=== PATIENT | female | born 1930 | race Caucasian/White ===

== ENCOUNTER 2017-03-26 16:48 | Inpatient (IN) | payer OTHER ==
--- NOTE | 2017-03-26 17:33 | PDOC ---
History of Present Illness <Allen Lacey - Last Filed: 03/26/17 21:53> - General History Source: Patient, Family, Old Records Exam Limitations: No Limitations - History of Present Illness Initial Comments: 03/26/17 17:51 The patient is a 86 year old female and presenting with her family, with a significant past medical history of lung CA (stage 4)(2 years of treatment, now only taking chemo pills) on home O2, dementia and HLD, who presents to the emergency department with shortness of breath, left back pain, rash and chills. The patient notes that she has a rash on her left mid back and under her left breast, as well as a blister. He patient is not a former smoker but her was a former smoker. The patient denies chest pain, headache and dizziness. Denies fever, nausea, vomit, diarrhea and constipation. Denies dysuria, frequency, urgency and hematuria. Allergies: Bacitracin, penicillin and tape Past surgical history: Heart Valve replacement Social history: No alcohol, tobacco or drug use reported PMD - Dr. Binh Rico ([place]) Alectinid (Alecensa) <Cesar Carlson - Last Filed: 03/26/17 23:09> - General Chief Complaint: Rash Stated Complaint: PCP SENT/PNEUMONIA Time Seen by Provider: 03/26/17 17:32 Past History - Past Medical History Anemia: No Asthma: No Cancer: Yes (STAGE 2 LUNG CA) Cardiac Disorders: Yes (OPEN HEART SURGERY VALVE REPLACEMENT [facility]) CVA: No COPD: No CHF: No Dementia: Yes Diabetes: No GI Disorders: No Disorders: No HTN: No Hypercholesterolemia: Yes Liver Disease: No Seizures: No Thyroid Disease: No Other medical history: INTERMMITENT 2L VIA NC O2AT HOME - Surgical History Cardiac Surgery: Yes (HEART VALVE REPLACEMENT) - Psycho/Social/Smoking Cessation Hx Anxiety: No Suicidal Ideation: No Smoking History: Never smoked Hx Alcohol Use: No Drug/Substance Use Hx: No Substance Use Type: None Hx Substance Use Treatment: No <Allen Lacey - Last Filed: 03/26/17 21:53> <Cesar Carlson - Last Filed: 03/26/17 23:09> - Past Medical History Allergies/Adverse Reactions: Allergies Allergy/AdvReac Type Severity Reaction Status Date / Time bacitracin Allergy Rash Verified 03/26/17 17:01 Penicillins Allergy Verified 03/26/17 17:01 TAPE Allergy Uncoded 03/26/17 17:01 Home Medications: Ambulatory Orders Alectinib HCl [Alecensa] 150 mg PO BID 03/26/17 Apixaban [Eliquis -] 2.5 mg PO BID 03/26/17 Carvedilol [Coreg -] 12.5 mg PO DAILY 03/26/17 Furosemide [Lasix -] 40 mg PO DAILY 03/26/17 Montelukast Na [Singulair -] 10 mg PO HS 03/26/17 Potassium Chloride [K-Tab ER] 20 meq PO DAILY 03/26/17 Quetiapine Fumarate [Seroquel] 100 mg PO HS 03/26/17 Review of Systems - Review of Systems Able to Perform ROS?: Yes Comments:: 03/26/17 17:51 GENERAL/CONSTITUTIONAL: +Chills. No fever. No weakness. HEAD, EYES, EARS, NOSE AND THROAT: No change in vision. No ear pain or discharge. No sore throat. CARDIOVASCULAR: +Shortness of breath. No chest pain RESPIRATORY: No cough, wheezing, or hemoptysis. GASTROINTESTINAL: No nausea, vomiting, diarrhea or constipation. GENITOURINARY: No dysuria, frequency, or change in urination. MUSCULOSKELETAL: +Left back pain. No joint or muscle swelling or pain. No neck pain. SKIN: +Left mid back rash and left under the breast rash. NEUROLOGIC: No headache, vertigo, loss of consciousness, or change in strength/ sensation. ENDOCRINE: No increased thirst. No abnormal weight change HEMATOLOGIC/LYMPHATIC: No anemia, easy bleeding, or history of blood clots. ALLERGIC/IMMUNOLOGIC: No hives or skin allergy. <Cesar Carlson - Last Filed: 03/26/17 23:09> *Physical Exam - Vital Signs Last Vital Signs Temp Pulse Resp BP Pulse Ox 97.8 F 78 18 120/67 95 03/26/17 16:53 03/26/17 16:53 03/26/17 16:53 03/26/17 16:53 03/26/17 16:53 <Allen Lacey - Last Filed: 03/26/17 21:53> - Vital Signs Last Vital Signs Temp Pulse Resp BP Pulse Ox 97.8 F 78 18 120/67 95 03/26/17 16:53 03/26/17 16:53 03/26/17 16:53 03/26/17 16:53 03/26/17 16:53 - Physical Exam Comments: 03/26/17 17:55 GENERAL: Awake, alert, and fully oriented, in no acute distress HEAD: No signs of trauma, normocephalic, atraumatic EYES: PERRLA, EOMI, sclera anicteric, conjunctiva clear ENT: Auricles normal inspection, hearing grossly normal, nares patent, oropharynx clear without exudates. Moist mucosa NECK: Normal ROM, supple, no lymphadenopathy, JVD, or masses LUNGS: No distress, speaks full sentences, clear to auscultation bilaterally HEART: Regular rate and rhythm, normal S1 and S2, no murmurs, rubs or gallops, peripheral pulses normal and equal bilaterally. ABDOMEN: Soft, nontender, normoactive bowel sounds. No guarding, no rebound. No masses EXTREMITIES: Normal inspection, Normal range of motion, no edema. No clubbing or cyanosis. NEUROLOGICAL: Cranial nerves II through XII grossly intact. Normal speech, normal gait, no focal sensorimotor deficits SKIN: +Shingles rash in the T8-10 dermatone, rolling underneath her left breast with a blister. Warm, Dry, normal turgor. <Cesar Carlson - Last Filed: 03/26/17 23:09> ED Treatment Course - LABORATORY CBC & Chemistry Diagram: 03/26/17 18:45 03/26/17 18:45 <Allen Lacey - Last Filed: 03/26/17 21:53> - LABORATORY CBC & Chemistry Diagram: 03/26/17 18:45 03/26/17 18:45 <Cesar Carlson - Last Filed: 03/26/17 23:09> Medical Decision Making - Medical Decision Making 03/26/17 22:00 Dr. Binh Garcia was called regarding the patient at 9:46pm. Dr. Florencio mauro. Dr. Matias was consulted regarding the patient at 9:50pm [phone] Dr. Justen Garcia was called regarding the patient at 10:06pm Dr. Carter mauro. Dr. Machado was consulted regarding the patient at 10:50pm [phone] <Cesar Carlson - Last Filed: 03/26/17 23:09> *DC/Admit/Observation/Transfer - Discharge Dispostion Admit: Yes - Attestations Physician Attestion: 03/26/17 17:32 I, Dr. Allen Lacey, attest that this document has been prepared under my direction and personally reviewed by me in its entirety. I further attest, that it accurately reflects all work, treatment, procedures and medical decision -making performed by me. <Allen Lacey - Last Filed: 03/26/17 21:53> - Attestations Scribe Attestion: 03/26/17 17:51 Documentation prepared by Cesar Carlson, acting as medical clinic manager for Allen Lacey MD <Cesar Carlson - Last Filed: 03/26/17 23:09> Diagnosis at time of Disposition: Pneumonitis Shingles Qualifiers: Herpes zoster complications: without complications Qualified Code(s): B02.9 - Zoster without complications Lung cancer Qualifiers: Laterality: unspecified laterality Lung location: unspecified part of lung Qualified Code(s): C34.90 - Malignant neoplasm of unspecified part of unspecified bronchus or lung - Discharge Dispostion Condition at time of disposition: Improved - Referrals
[2017-03-26 19:03] LABS: EOSINOPHIL 1.8 % (0-4.5); MCH 30.4 pg (25.7-33.7); MCHC 33.2 g/dl (32.0-36.0); MEAN CELL VOLUME 91.4 fl (80-96); MEAN PLT VOLUME 8.7 fl (7.5-11.1); NEUTROPHILS 60.4 % (42.8-82.8); PLATELET COUNT 148 K/MM3 (134-434); RDW 16.7 % (11.6-15.6)
[2017-03-26 19:16] LABS: INR 1.3 (0.82-1.09); PROTHROMBIN TIME (PATIENT) 14.4 SEC (9.98-11.88)
[2017-03-26 19:22] LABS: ALBUMIN 3.6 g/dl (3.4-5.0); BILIRUBIN,TOTAL 0.7 mg/dL (0.2-1.0); CALCIUM 8.9 mg/dL (8.5-10.1); COCKROFT - GAULT 34.204; CREATININE 1.3 mg/dL (0.55-1.02); TOT PROT 8.7 g/dl (6.4-8.2)
[2017-03-26] MEDS ORDERED: ACYCLOVIR INJECTION 700 MG in DEXTROSE 5%-WATER - 100 ML IVPB ONE (19:46)
[2017-03-26] MEDS ORDERED: ACETAMINOPHEN 325 MG TABLET (FP) PO PRN (21:53)
[2017-03-26] MEDS ORDERED: LEVOFLOXACIN 500 MG IVPB 100 ML IVPB ONE ×2 (21:58→22:10)
[2017-03-26] MEDS ORDERED: ALECTINIB HCL 150 MG PO SCH (22:00)
[2017-03-26] MEDS ORDERED: MONTELUKAST NA 10 MG TABLET ONE (22:42)
[2017-03-26] MEDS ORDERED: QUEtiapine FUMARATE 100 MG TABLET (FP) ONE (22:42)
[2017-03-26] MEDS: QUEtiapine FUMARATE 100 MG TABLET (FP) PO SCH (22:43)
[2017-03-26] MEDS: MONTELUKAST NA 10 MG TABLET PO SCH (22:43)
[2017-03-26] MEDS: valACYclovir HCL 1000 MG TABLET PO SCH (23:15)
[2017-03-26] MEDS: APIXABAN 2.5 MG TABLET PO SCH (23:15)
[2017-03-27] MEDS: traMADol HCL 50 MG TABLET PO PRN ×2 (06:47→13:37)
[2017-03-27 08:25] VITALS: BMI 28.9
[2017-03-27] MEDS: POTASSIUM CHLORIDE TABS 20 MEQ TABLET.ER (FP) PO SCH (09:50)
[2017-03-27] MEDS: CARVEDILOL 12.5 MG TABLET (FP) PO SCH (09:50)
[2017-03-27] MEDS: APIXABAN 2.5 MG TABLET PO SCH ×2 (09:50→21:42)
[2017-03-27] MEDS: valACYclovir HCL 1000 MG TABLET PO SCH (09:51)
[2017-03-27] MEDS: LEVOFLOXACIN 250 MG IVPB 50 ML IVPB SCH (09:51)
[2017-03-27] MEDS: FUROSEMIDE 40 MG TABLET (FP) PO SCH (09:51)
--- NOTE | 2017-03-27 10:26 | HP ---
Admitting History and Physical - Primary Care Physician PCP: Binh Garcia - Admission Chief Complaint: pain in back , fever History of Present Illness: ER HISTORY - History of Present Illness Initial Comments: 03/26/17 17:51 The patient is a 86 year old female and presenting with her family, with a significant past medical history of lung CA (stage 4)(2 years of treatment, now only taking chemo pills) on home O2, dementia and HLD, who presents to the emergency department with shortness of breath, left back pain, rash and chills. The patient notes that she has a rash on her left mid back and under her left breast, as well as a blister. He patient is not a former smoker but her was a former smoker. The patient denies chest pain, headache and dizziness. Denies fever, nausea, vomit, diarrhea and constipation. Denies dysuria, frequency, urgency and hematuria. Allergies: Bacitracin, penicillin and tape Past surgical history: Heart Valve replacement Social history: No alcohol, tobacco or drug use reported PMD - Dr. Binh Garcia oncologist Dr. Rico ([place]) chemo-- Alectinib (Alecensa) Pt seen by me in the floor Her daughter at bedside Pt is baseline dementia. She had been having cough, weakness , chills and back pain for about 3 weeks-- found to have rash on the back . She is currently on oral immunotherapy for stage 4 Lung ca. Daughter thought that the pain was from her left lung CA. Febrile today History Source: Family Member Limitations to Obtaining History: Dementia - Past Medical History [employer]ATION [employer]: Yes: Alzheimer's Cardiovascular: Yes: Aortic Stenosis (s/p AVR- bioprosthetic valve- not on Coumadin - was dc by on Dec 2104), HTN, Hyperlipdemia - Past Surgical History Past Surgical History: Yes: Valve Replacement - Smoking History Smoking history: Never smoked - Alcohol/Substance Use Hx Alcohol Use: No - Social History ADL: Family Assistance History of Recent Travel: No Home Medications - Allergies Allergies/Adverse Reactions: Allergies Allergy/AdvReac Type Severity Reaction Status Date / Time bacitracin Allergy Rash Verified 03/26/17 17:01 Penicillins Allergy Verified 03/26/17 17:01 TAPE Allergy Uncoded 03/26/17 17:01 - Home Medications Home Medications: Ambulatory Orders Alectinib HCl [Alecensa] 150 mg PO BID 03/26/17 Apixaban [Eliquis -] 2.5 mg PO BID 03/26/17 Carvedilol [Coreg -] 12.5 mg PO DAILY 03/26/17 Furosemide [Lasix -] 40 mg PO DAILY 03/26/17 Montelukast Na [Singulair -] 10 mg PO HS 03/26/17 Potassium Chloride [K-Tab ER] 20 meq PO DAILY 03/26/17 Quetiapine Fumarate [Seroquel] 100 mg PO HS 03/26/17 Family Disease History - Family Disease History Family Disease History: Other: Daughter (pe) Review of Systems - Review of Systems Constitutional: reports: Chills, Fever, Weakness Respiratory: reports: Cough, SOB Musculoskeletal: reports: Back Pain Integumentary: reports: Rash Physical Examination Vital Signs: Vital Signs Temperature 97.3 F L 03/27/17 10:00 Pulse Rate 87 03/27/17 10:00 Respiratory Rate 22 03/27/17 10:00 Blood Pressure 156/77 03/27/17 10:00 O2 Sat by Pulse Oximetry (%) 94 L 03/27/17 05:02 Constitutional: Yes: No Distress, Anxious Cardiovascular: Yes: Regular Rate and Rhythm, Murmur, Other (scar sternum) Respiratory: Yes: Diminished Gastrointestinal: Yes: Normal Bowel Sounds, Soft, Abdomen, Obese. No: Distention, Tenderness Extremities: Yes: Erythema (both feet), Other (b/l feet wounds- no discharge) Edema: No Integumentary: Yes: Rash (papular erythematous lesions on left mid back) Neurological: Yes: Alert, Other (confused) Labs: Laboratory Results - last 24 hr 03/26/17 03/26/17 03/26/17 18:45 18:45 18:45 WBC 6.0 RBC 3.81 Hgb 11.6 D Hct 34.8 D MCV 91.4 MCHC 33.2 RDW 16.7 H D Plt Count 148 D MPV 8.7 Neutrophils % 60.4 Lymphocytes % 21.6 Monocytes % 15.2 H Eosinophils % 1.8 Basophils % 1.0 INR 1.30 H D Sodium 139 Potassium 4.2 Chloride 99 Carbon Dioxide 28 Anion Gap 12 BUN 32 H Creatinine 1.3 H Creat Clearance w eGFR 38.93 Random Glucose 116 H Calcium 8.9 Total Bilirubin 0.7 D AST 30 ALT 20 D Alkaline Phosphatase 152 H D Total Protein 8.7 H D Albumin 3.6 D Imaging - Results Chest X-ray: Image Reviewed (mass in left lung) EKG: Image Reviewed Problem List - Problems (1) Lung cancer Code(s): C34.90 - MALIGNANT NEOPLASM OF UNSP PART OF UNSP BRONCHUS OR LUNG Qualifiers: Laterality: unspecified laterality Lung location: unspecified part of lung Qualified Code(s): C34.90 - Malignant neoplasm of unspecified part of unspecified bronchus or lung (2) Shingles Code(s): B02.9 - ZOSTER WITHOUT COMPLICATIONS Qualifiers: Herpes zoster complications: without complications Qualified Code(s): B02.9 - Zoster without complications (3) Acute renal insufficiency Code(s): N28.9 - DISORDER OF KIDNEY AND URETER, UNSPECIFIED (4) Dementia Code(s): F03.90 - UNSPECIFIED DEMENTIA WITHOUT BEHAVIORAL DISTURBANCE Qualifiers: Dementia type: Alzheimer's disease (5) HTN (hypertension) Code(s): I10 - ESSENTIAL (PRIMARY) HYPERTENSION Qualifiers: Hypertension type: essential hypertension Qualified Code(s): I10 - Essential (primary) hypertension (6) Cellulitis Code(s): L03.90 - CELLULITIS, UNSPECIFIED Qualifiers: Site of cellulitis: extremity Site of cellulitis of extremity: lower extremity Laterality: right Qualified Code(s): L03.115 - Cellulitis of right lower limb Assessment/Plan PLAN Contact isolation pain control with tramadol blood cultures pending check UA and cultures On PO valtrex and IV Levaquin wound care with Santyl-- will consult with Dr saxena Check labs today CXR does not show to have infiltrates OOB DVT prophylaxis-- Eliquis Time spent -- 35 min for evaluation, examination ,plan, talking to family, staff and documentation
--- NOTE | 2017-03-27 13:21 | PN ---
Progress Note (short form) - Note Progress Note: ID Consult dictated Herpes Zoster L T5 dermatome Fever ? source S/P AVR Hx MRSA PCN allergy PO Valtrex Blood c/s Empiric levaquin + stat dose vancomycin
[2017-03-27 13:38] LABS: ALBUMIN 3.2 g/dl (3.4-5.0); BILIRUBIN,TOTAL 0.7 mg/dL (0.2-1.0); CALCIUM 8.9 mg/dL (8.5-10.1); COCKROFT - GAULT 45.1265; CREATININE 1.1 mg/dL (0.55-1.02); TOT PROT 7.7 g/dl (6.4-8.2)
[2017-03-27 13:39] LABS: BASOPHIL 0.9 % (0-2.0); EOSINOPHIL 2.5 % (0-4.5); MCH 30.6 pg (25.7-33.7); MCHC 33.7 g/dl (32.0-36.0); MEAN CELL VOLUME 90.8 fl (80-96); MEAN PLT VOLUME 8.7 fl (7.5-11.1); NEUTROPHILS 52.1 % (42.8-82.8); PLATELET COUNT 152 K/MM3 (134-434); RDW 16.2 % (11.6-15.6); WHITE BLOOD COUNT 5.3 K/mm3 (4.0-10.0)
[2017-03-27] MEDS: COLLAGENASE CLOSTRIDIUM HIST. 30 GRAMS TUBE TP SCH (13:39)
[2017-03-27 14:25] LABS: URINE APPEARANCE SLCLOUDY; URINE BILIRUBIN NEGATIVE (NEGATIVE); URINE COLOR LTYELLOW; URINE GLUCOSE (UA) NEGATIVE (NEGATIVE); URINE KETONE NEGATIVE (NEGATIVE); URINE NITRITE NEGATIVE (NEGATIVE); URINE PROTEIN NEGATIVE (NEGATIVE); URINE UROBILINOGEN NEGATIVE E.U./dl (0.2-1.0)
[2017-03-27 14:29] LABS: URINE BLOOD 2+ (NEGATIVE); URINE LEUK ESTERASE 3+ (NEGATIVE)
[2017-03-27 14:37] LABS: URINE BACTERIA MANY /hpf (NONE SEEN); URINE MUCUS FEW; URINE RBC 4 /hpf (0-3); URINE WBC 79 /hpf (3-5)
[2017-03-27] MEDS ORDERED: VANCOMYCIN 1 GRAM (PRE-DOCKED) 250 ML IVPB ONE (14:45)
--- NOTE | 2017-03-27 15:53 | PN ---
Progress Note (short form) - Note Progress Note: Vascular Surgery- Dr. Berg Wound care consult, bilateral foot ulcers 86 yo F with PMH of stage 4 lung CA (on oral chemotherapy and home O2), dementia , aortic stenosis (s/p AVR), HTN, and HLD, who presented to the ED with SOB, left back pain, rash and chills, noted to have shingles. The patient states she sees Dr. Berg in the wound care clinic for her foot ulcers. She has had these ulcers for a long time, but is unsure how long. She states she saw Dr. Berg recently and the ulcers have improved. She is having minimal pain in her feet. She denies fever, chills, nausea, vomiting. Past surgical history: Heart Valve replacement Social history: No alcohol, tobacco or drug use Allergies: Bacitracin, penicillin and tape Home Medications Medication Instructions Recorded Alectinib HCl [Alecensa] 150 mg PO BID 03/26/17 Apixaban [Eliquis -] 2.5 mg PO BID 03/26/17 Carvedilol [Coreg -] 12.5 mg PO DAILY 03/26/17 Furosemide [Lasix -] 40 mg PO DAILY 03/26/17 Montelukast Na [Singulair -] 10 mg PO HS 03/26/17 Potassium Chloride [K-Tab ER] 20 meq PO DAILY 03/26/17 Quetiapine Fumarate [Seroquel] 100 mg PO HS 03/26/17 Last Vital Signs Temp Pulse Resp BP Pulse Ox 97.4 F L 68 18 110/68 95 03/27/17 15:45 03/27/17 15:45 03/27/17 15:45 03/27/17 15:45 03/27/17 09:00 CBC, BMP 03/27/17 12:40 03/27/17 12:40 Exam: Gen: NAD, baseline dementia LE: bilat. superficial foot ulcers with area on lateral right foot and areas on medial and lateral aspects of left foot, with some surrounding erythema (R>L), no odor or drainage, appear to be healing, feet warm and well-perfused, + pulses A/P Bilateral foot ulcers Continue Santyl dressing changes daily Continue abx per ID Discussed with Dr. Berg and agrees
--- NOTE | 2017-03-27 16:07 | CONS ---
DATE OF CONSULTATION: DATE OF DICTATION: 03/27/2017 INFECTIOUS DISEASE CONSULTATIONS HISTORY OF PRESENT ILLNESS: An 86-year-old female evaluated for fever and rash. The patient has a history of stage 4 lung cancer. She was admitted to the hospital with a 2-day history of worsening left sided chest and back pain associated with cough, dyspnea, generalized weakness and chills. She subsequently developed a rash involving her left back and chest area. She was diagnosed with herpes zoster. Chest x-ray shows a right mid lung consolidation/mass. She has been receiving immunotherapy for stage 4 lung cancer. She reports occasional cough productive of yellowish sputum. She denies any hemoptysis. No complaints of recent high grade fever or shaking chills. Her course has been complicated by temperature to 101.3. The patient has a history of a prosthetic aortic valve as well as chronic ankle ulcers, for which she is followed in the wound care center. No reports of purulent drainage from the ulcers, no vomiting or diarrhea, no dysuria or hematuria. PAST MEDICAL HISTORY: Positive for stage 4 lung cancer, mild dementia, hyperlipidemia, hypertension, history of chronic lower extremity ulcers with MRSA, wound culture. PAST SURGICAL HISTORY: Status post aortic valve replacement 1995. ALLERGIES: PENICILLIN (rash). MEDICATION: Eliquis, Coreg, Lasix, Singulair, Seroquel, alectinib. SOCIAL HISTORY: Nonsmoker. Nondrinker. Lives at home with family. Has 16 children. No recent hospital admissions. SYSTEMS REVIEW: Neurologic: No loss of consciousness, seizure activity, or focal weakness. Cardiac: As per HPI. Respiratory: As per HPI. Gastrointestinal: Negative vomiting or diarrhea. Genitourinary: Negative for urinary tract infection. LABORATORY DATA: White count 6.0, hematocrit 34.8, platelet count 148, BUN 32, creatinine 1.3. Blood cultures pending. Urinalysis and urine culture pending. PHYSICAL EXAMINATION: General: She is awake and alert. Out of bed to chair. She is in no acute distress. Vital signs: Temperature 97.3, T-max 101.3, blood pressure 156/77, pulse 80 regular, respirations 20 per minute. HEENT: Sclerae anicteric. Cardiovascular: Heart sounds S1, S2. Positive murmur. Respiratory: Lungs scattered rhonchi. There is a maculopapular rash present along the left T5 dermatome extending from the back around to below the left breast area. Abdomen: Soft. Nontender. Extremities: 1+ edema. Chronic ulcerations present over the ankles bilaterally, no purulent drainage. IMPRESSION: 1. Herpes zoster, left T5 dermatome. 2. Fever unclear source. 3. Status post aortic valve replacement. 4. History of positive wound culture methicillin resistant Staphylococcus aureus. 5. PENICILLIN allergy. Continue oral Valtrex. Obtain cultures. Empiric antibiotic coverage pending cultures in this PENICILLIN allergic patient with Levaquin and stat dose vancomycin. Will follow. Thank you for the kind referral. SARAH MUELLER M.D. [id number]
[2017-03-27] MEDS: MONTELUKAST NA 10 MG TABLET PO SCH (21:43)
[2017-03-27] MEDS: valACYclovir HCL 500 MG TABLET (FP) PO SCH (21:43)
[2017-03-27] MEDS: QUEtiapine FUMARATE 100 MG TABLET (FP) PO SCH (21:43)
[2017-03-28 07:59] LABS: BASOPHIL 0.9 % (0-2.0); EOSINOPHIL 3.7 % (0-4.5); MCH 30.8 pg (25.7-33.7); MCHC 34.2 g/dl (32.0-36.0); MEAN CELL VOLUME 90.3 fl (80-96); MEAN PLT VOLUME 8.5 fl (7.5-11.1); NEUTROPHILS 50.1 % (42.8-82.8); PLATELET COUNT 149 K/MM3 (134-434); RDW 16.1 % (11.6-15.6); WHITE BLOOD COUNT 5.9 K/mm3 (4.0-10.0)
[2017-03-28 08:40] LABS: ALBUMIN 3.2 g/dl (3.4-5.0); BILIRUBIN,TOTAL 0.7 mg/dL (0.2-1.0); CALCIUM 9.4 mg/dL (8.5-10.1); COCKROFT - GAULT 45.1265; CREATININE 1.1 mg/dL (0.55-1.02); TOT PROT 7.5 g/dl (6.4-8.2)
[2017-03-28] MEDS ORDERED: PT OWN MED DRAWER 7, Y5N ONE ×2 (09:28→21:51)
[2017-03-28] MEDS: LEVOFLOXACIN 250 MG IVPB 50 ML IVPB SCH (09:43)
[2017-03-28] MEDS: FUROSEMIDE 40 MG TABLET (FP) PO SCH (09:44)
[2017-03-28] MEDS: APIXABAN 2.5 MG TABLET PO SCH ×2 (09:44→21:53)
[2017-03-28] MEDS: traMADol HCL 50 MG TABLET PO PRN (09:44)
[2017-03-28] MEDS: CARVEDILOL 12.5 MG TABLET (FP) PO SCH (09:44)
[2017-03-28] MEDS: POTASSIUM CHLORIDE TABS 20 MEQ TABLET.ER (FP) PO SCH (09:44)
[2017-03-28] MEDS: valACYclovir HCL 500 MG TABLET (FP) PO SCH ×2 (09:44→21:54)
[2017-03-28] MEDS: COLLAGENASE CLOSTRIDIUM HIST. 30 GRAMS TUBE TP SCH (09:45)
--- NOTE | 2017-03-28 10:36 | PN ---
Progress Note (short form) - Note Progress Note: SUBJECTIVE: Patient seen and examined. Chart reviewed. Comfortable. Pain under control. Afebrile today. OBJECTIVE: Vital Signs - 8 hr 03/28/17 03/28/17 06:00 08:55 Temperature 98.0 F 98.4 F Pulse Rate 75 76 Respiratory 20 20 Rate Blood Pressure 108/60 115/50 Intake & Output 03/27/17 03/28/17 03/28/17 23:59 07:59 15:59 Intake Total 400 Balance 400 Intake: Oral 400 Other: Voiding Method Toilet Toilet # Unmeasured Voids Void 1 Active Medications Acetaminophen (Tylenol -) 650 mg PO Q4H PRN PRN Reason: FEVER Last Admin: 03/27/17 06:46 Dose: 650 mg Apixaban (Eliquis -) 2.5 mg PO BID [facility] Last Admin: 03/28/17 09:44 Dose: 2.5 mg Carvedilol (Coreg -) 12.5 mg PO DAILY [facility] Last Admin: 03/28/17 09:44 Dose: 12.5 mg Collagenase (Santyl -) 1 applic TP DAILY [facility] Last Admin: 03/28/17 09:45 Dose: 1 applic Furosemide (Lasix -) 40 mg PO DAILY [facility] Last Admin: 03/28/17 09:44 Dose: 40 mg Levofloxacin (Levaquin 250 Mg Premixed Ivpb -) 50 mls @ 50 mls/hr IVPB DAILY [facility] Last Admin: 03/28/17 09:43 Dose: 50 mls/hr Montelukast Sodium (Singulair -) 10 mg PO HS [facility] Last Admin: 03/27/17 21:43 Dose: 10 mg Non-Formulary Medication (Alectinib Hcl [Alecensa]) 150 mg PO BID [facility] Potassium Chloride (K-Dur -) 20 meq PO DAILY [facility] Last Admin: 03/28/17 09:44 Dose: 20 meq Quetiapine Fumarate (Seroquel -) 100 mg PO HS [facility] Last Admin: 03/27/17 21:43 Dose: 100 mg Tramadol HCl (Ultram -) 50 mg PO Q6H PRN PRN Reason: BACK PAIN Last Admin: 03/28/17 09:44 Dose: 50 mg Valacyclovir HCl (Valtrex -) 1,000 mg PO BID [facility] Last Admin: 03/28/17 09:44 Dose: 1,000 mg CBC, BMP 03/28/17 06:15 03/28/17 06:15 Laboratory Results - last 24 hr 03/26/17 03/27/17 03/27/17 18:45 12:40 12:40 WBC 5.3 RBC 3.50 L Hgb 10.7 Hct 31.8 L MCV 90.8 MCHC 33.7 RDW 16.2 H Plt Count 152 MPV 8.7 Neutrophils % 52.1 Lymphocytes % 26.5 D Monocytes % 18.0 H Eosinophils % 2.5 Basophils % 0.9 Sodium 138 Potassium 4.3 Chloride 100 Carbon Dioxide 30 Anion Gap 8 BUN 23 H D Creatinine 1.1 H Creat Clearance w eGFR 47.21 Random Glucose 115 H Calcium 8.9 Total Bilirubin 0.7 AST 28 ALT 19 Alkaline Phosphatase 136 H Total Protein 7.7 Albumin 3.2 L Urine Color Urine Appearance Urine pH Ur Specific Cullen Urine Protein Urine Glucose (UA) Urine Ketones Urine Blood Urine Nitrite Urine Bilirubin Urine Urobilinogen Ur Leukocyte Esterase Urine RBC Urine WBC Ur Epithelial Cells Urine Bacteria Urine Mucus VZV IgG Antibody 1595 03/27/17 03/28/17 03/28/17 13:30 06:15 06:15 WBC 5.9 RBC 3.57 L Hgb 11.0 Hct 32.2 L MCV 90.3 MCHC 34.2 RDW 16.1 H Plt Count 149 MPV 8.5 Neutrophils % 50.1 Lymphocytes % 26.5 Monocytes % 18.8 H Eosinophils % 3.7 Basophils % 0.9 Sodium 137 Potassium 3.9 Chloride 99 Carbon Dioxide 29 Anion Gap 9 BUN 22 H Creatinine 1.1 H Creat Clearance w eGFR 47.21 Random Glucose 88 D Calcium 9.4 Total Bilirubin 0.7 AST 27 ALT 20 Alkaline Phosphatase 133 H Total Protein 7.5 Albumin 3.2 L Urine Color Ltyellow Urine Appearance Slcloudy Urine pH 7.0 D Ur Specific Cullen 1.009 Urine Protein Negative Urine Glucose (UA) Negative Urine Ketones Negative Urine Blood 2+ H Urine Nitrite Negative Urine Bilirubin Negative Urine Urobilinogen Negative Ur Leukocyte Esterase 3+ H Urine RBC 4 Urine WBC 79 Ur Epithelial Cells Rare Urine Bacteria Many Urine Mucus Few VZV IgG Antibody Microbiology 03/26/17 18:45 Blood Culture - Preliminary Blood - Peripheral Venous NO GROWTH OBTAINED AFTER 24 HOURS, INCUBATION TO CONTINUE FOR 4 DAYS. 03/26/17 18:45 Blood Culture - Preliminary Blood - Peripheral Venous NO GROWTH OBTAINED AFTER 24 HOURS, INCUBATION TO CONTINUE FOR 4 DAYS. PHYSICAL EXAMINATION: Constitutional: Yes: No Distress, Calm Cardiovascular: Yes: Regular Rate and Rhythm, Murmur, Other (scar sternum) Respiratory: Yes: Diminished at bases. Gastrointestinal: Yes: Normal Bowel Sounds, Soft, Abdomen, Obese. No: Distention, Tenderness Extremities: Yes: Erythema (both feet), Other (b/l feet wounds- no discharge) Edema: No Integumentary: Yes: Rash (papular erythematous lesions on left mid back) Neurological: Yes: Alert, Other (confused) Problem List - Problems (1) Lung cancer Code(s): C34.90 - MALIGNANT NEOPLASM OF UNSP PART OF UNSP BRONCHUS OR LUNG Qualifiers: Laterality: unspecified laterality Lung location: unspecified part of lung Qualified Code(s): C34.90 - Malignant neoplasm of unspecified part of unspecified bronchus or lung (2) Shingles Code(s): B02.9 - ZOSTER WITHOUT COMPLICATIONS Qualifiers: Herpes zoster complications: without complications Qualified Code(s): B02.9 - Zoster without complications (3) Acute renal insufficiency Code(s): N28.9 - DISORDER OF KIDNEY AND URETER, UNSPECIFIED (4) Dementia Code(s): F03.90 - UNSPECIFIED DEMENTIA WITHOUT BEHAVIORAL DISTURBANCE Qualifiers: Dementia type: Alzheimer's disease (5) HTN (hypertension) Code(s): I10 - ESSENTIAL (PRIMARY) HYPERTENSION Qualifiers: Hypertension type: essential hypertension Qualified Code(s): I10 - Essential (primary) hypertension (6) Cellulitis Code(s): L03.90 - CELLULITIS, UNSPECIFIED Qualifiers: Site of cellulitis: extremity Site of cellulitis of extremity: lower extremity Laterality: right Qualified Code(s): L03.115 - Cellulitis of right lower limb ASSESSMENT & PLAN: - Clinically stable. - Continue antibiotics. - Follow up cultures-- negative so far. - Contact precautions in place. - Daily out of bed to chair. - Will follow. Documentation prepared by Yuni Tellez, acting as a medical facilities section director for Viv Jurado MD. Problem List - Problems (1) H/O aortic valve replacement Code(s): Z95.2 - PRESENCE OF PROSTHETIC HEART VALVE
--- NOTE | 2017-03-28 13:37 | PN ---
Progress Note, Physician History of Present Illness: Reports less L flank pain Temps down Blood c/s no growth - Current Medication List Current Medications: Active Medications Acetaminophen (Tylenol -) 650 mg PO Q4H PRN PRN Reason: FEVER Last Admin: 03/27/17 06:46 Dose: 650 mg Apixaban (Eliquis -) 2.5 mg PO BID [facility] Last Admin: 03/28/17 09:44 Dose: 2.5 mg Carvedilol (Coreg -) 12.5 mg PO DAILY [facility] Last Admin: 03/28/17 09:44 Dose: 12.5 mg Collagenase (Santyl -) 1 applic TP DAILY [facility] Last Admin: 03/28/17 09:45 Dose: 1 applic Furosemide (Lasix -) 40 mg PO DAILY [facility] Last Admin: 03/28/17 09:44 Dose: 40 mg Levofloxacin (Levaquin 250 Mg Premixed Ivpb -) 50 mls @ 50 mls/hr IVPB DAILY [facility] Last Admin: 03/28/17 09:43 Dose: 50 mls/hr Montelukast Sodium (Singulair -) 10 mg PO HS [facility] Last Admin: 03/27/17 21:43 Dose: 10 mg Non-Formulary Medication (Alectinib Hcl [Alecensa]) 150 mg PO BID [facility] Potassium Chloride (K-Dur -) 20 meq PO DAILY [facility] Last Admin: 03/28/17 09:44 Dose: 20 meq Quetiapine Fumarate (Seroquel -) 100 mg PO HS [facility] Last Admin: 03/27/17 21:43 Dose: 100 mg Tramadol HCl (Ultram -) 50 mg PO Q6H PRN PRN Reason: BACK PAIN Last Admin: 03/28/17 09:44 Dose: 50 mg Valacyclovir HCl (Valtrex -) 1,000 mg PO BID [facility] Last Admin: 03/28/17 09:44 Dose: 1,000 mg - Objective Vital Signs: Vital Signs Temperature 98.4 F 03/28/17 08:55 Pulse Rate 76 03/28/17 08:55 Respiratory Rate 20 03/28/17 08:55 Blood Pressure 115/50 03/28/17 08:55 O2 Sat by Pulse Oximetry (%) 98 03/28/17 09:00 Constitutional: Yes: No Distress Eyes: Yes: Conjunctiva Clear Cardiovascular: Yes: Regular Rate and Rhythm, S1, S2 Respiratory: Yes: CTA Bilaterally Gastrointestinal: Yes: Normal Bowel Sounds, Soft. No: Tenderness Integumentary: Yes: Other (+ papular rash beneath L breast extending to L back) Labs: CBC, BMP 03/28/17 06:15 03/28/17 06:15 INR, PTT INR 1.30 (0.82-1.09) H D 03/26/17 18:45 Assessment/Plan VZV L T5 dermatome Fever- resolved Lung ca S/P AVR PCN allergy Continue valtrex po x 7d total If afebrile, c/s(-) D/C cefepime
[2017-03-28] MEDS: QUEtiapine FUMARATE 100 MG TABLET (FP) PO SCH (21:54)
[2017-03-28] MEDS: MONTELUKAST NA 10 MG TABLET PO SCH (21:54)
[2017-03-29] MEDS ORDERED: PT OWN MED DRAWER 7, Y5N ONE (09:07)
[2017-03-29] MEDS: LEVOFLOXACIN 250 MG IVPB 50 ML IVPB SCH (09:11)
[2017-03-29] MEDS: FUROSEMIDE 40 MG TABLET (FP) PO SCH (09:11)
[2017-03-29] MEDS: APIXABAN 2.5 MG TABLET PO SCH (09:11)
[2017-03-29] MEDS: CARVEDILOL 12.5 MG TABLET (FP) PO SCH (09:11)
[2017-03-29] MEDS: POTASSIUM CHLORIDE TABS 20 MEQ TABLET.ER (FP) PO SCH (09:11)
[2017-03-29] MEDS: COLLAGENASE CLOSTRIDIUM HIST. 30 GRAMS TUBE TP SCH (09:12)
[2017-03-29] MEDS: valACYclovir HCL 500 MG TABLET (FP) PO SCH (09:13)
[2017-03-29 10:53] VITALS: BP 120/63; PULSE 76; TEMP 98.3
--- NOTE | 2017-03-29 10:54 | DS ---
Physical Examination Vital Signs: Vital Signs Temperature 98.3 F 03/29/17 09:00 Pulse Rate 76 03/29/17 09:00 Respiratory Rate 18 03/29/17 09:00 Blood Pressure 120/63 03/29/17 09:00 O2 Sat by Pulse Oximetry (%) 96 03/29/17 09:00 Constitutional: Yes: No Distress, Calm Cardiovascular: Yes: Regular Rate and Rhythm Respiratory: Yes: CTA Bilaterally Gastrointestinal: Yes: Normal Bowel Sounds, Soft. No: Tenderness Edema: No Integumentary: Yes: Rash Labs: CBC, BMP 03/28/17 06:15 03/28/17 06:15 Discharge Summary Reason For Visit: HERPES ZOSTER Current Active Problems H/O aortic valve replacement (Acute) Lung cancer (Acute) Pneumonitis (Acute) Shingles (Acute) Hospital Course: ADMISSION HISTORY ER HISTORY - History of Present Illness Initial Comments: 03/26/17 17:51 The patient is a 86 year old female and presenting with her family, with a significant past medical history of lung CA (stage 4)(2 years of treatment, now only taking chemo pills) on home O2, dementia and HLD, who presents to the emergency department with shortness of breath, left back pain, rash and chills. The patient notes that she has a rash on her left mid back and under her left breast, as well as a blister. The patient is not a former smoker but her was a former smoker. The patient denies chest pain, headache and dizziness. Denies fever, nausea, vomit, diarrhea and constipation. Denies dysuria, frequency, urgency and hematuria. Allergies: Bacitracin, penicillin and tape Past surgical history: Heart Valve replacement Social history: No alcohol, tobacco or drug use reported PMD - Dr. Binh Garcia oncologist Dr. Rico ([place]) chemo-- Alectinib (Alecensa) Pt seen by me in the floor Her daughter at bedside Pt is baseline dementia. She had been having cough, weakness , chills and back pain for about 3 weeks-- found to have rash on the back . She is currently on oral immunotherapy for stage 4 Lung ca. Daughter thought that the pain was from her left lung CA. Hospitalization Course On contact isolation for h. Zoster Seen by ID-- was initially on Iv antibiotics - Levaquin- but discontinued today as blood cultures are negative. Urine culture not significant. Pt remains afberile since 03/27. Stable for dc home on PO Valtrex for 7 days. Spoke with daughter. Condition: Improved - Instructions Referrals: Binh Garcia MD [Primary Care Provider] - Disposition: HOME - Home Medications Comprehensive Discharge Medication List: Ambulatory Orders Alectinib HCl [Alecensa] 150 mg PO BID 03/26/17 Apixaban [Eliquis -] 2.5 mg PO BID 03/26/17 Carvedilol [Coreg -] 12.5 mg PO DAILY 03/26/17 Furosemide [Lasix -] 40 mg PO DAILY 03/26/17 Montelukast Na [Singulair -] 10 mg PO HS 03/26/17 Potassium Chloride [K-Tab ER] 20 meq PO DAILY 03/26/17 Quetiapine Fumarate [Seroquel] 100 mg PO HS 03/26/17
== END 2017-03-29 14:50 | disposition home or self-care (01) | DRG 596 ==
LOC: JER 16:48 → JERBED 21:55 → UNDOADMOB 22:07 → JERBED 22:07 → J8W 03-27 03:02 → OBSVTOIN 03-27 10:24
PROVIDERS: ADMIT Internal Medicine; ATTEND Internal Medicine
DX: B02.9 Zoster without complications (principal); C34.90 Malignant neoplasm of unspecified part of unspecified bronchus or lung; E78.00 Pure hypercholesterolemia, unspecified; F03.90 Unspecified dementia, unspecified severity, without behavioral disturbance, psychotic disturbance, mood disturbance, and anxiety; E78.5 Hyperlipidemia, unspecified; I35.0 Nonrheumatic aortic (valve) stenosis; L97.529 Non-pressure chronic ulcer of other part of left foot with unspecified severity; L97.519 Non-pressure chronic ulcer of other part of right foot with unspecified severity; Z95.2 Presence of prosthetic heart valve; Z88.0 Allergy status to penicillin; Z99.81 Dependence on supplemental oxygen
CPT/HCPCS: 36415; 71020-TC; 80053; 81003; 81015; 85025; 85610; 86787; 87040; 87086; 87186; 99284-25; G0378

== ENCOUNTER 2017-06-15 20:40 | Inpatient (IN) | payer OTHER ==
--- NOTE | 2017-06-15 20:53 | PDOC ---
History of Present Illness - General History Source: Patient Exam Limitations: No Limitations - History of Present Illness Initial Comments: 06/15/17 21:08 The patient is a 86 year old female with a significant past medical history of lung cancer (stage 4)(2 years of treatment, now only taking chemo pills), heart valve replacement, Dementia, HLD, who presents to the ED from home with fevers, rigors, and cough. Patient denies chest pain, SOB, headache, dizziness, nausea, vomiting, diarrhea. Patient denies dysuria, frequency, hematuria. Patient is always oxygen dependent, at least 2 liters. Allergies: Bacitracin, penicillin and tape Past surgical history: Heart Valve replacement Social history: No alcohol, tobacco or drug use reported PMD - Dr. Binh Garcia oncologist Dr. Rico ([place]) chemo-- Alectinib (Alecensa) <Jorge Mondragon - Last Filed: 06/15/17 21:10> <Trang Johnson - Last Filed: 06/16/17 01:00> - General Stated Complaint: ALTERED MENTAL STATUS, FEVER Time Seen by Provider: 06/15/17 20:46 Past History <Jorge Mondragon - Last Filed: 06/15/17 21:10> - Past Medical History Anemia: No Asthma: No Cancer: Yes (STAGE 2 LUNG CA) Cardiac Disorders: Yes (OPEN HEART SURGERY VALVE REPLACEMENT [facility]) CVA: No COPD: No CHF: No Dementia: Yes Diabetes: No GI Disorders: No Disorders: No HTN: No Hypercholesterolemia: Yes Liver Disease: No Seizures: No Thyroid Disease: No - Surgical History Cardiac Surgery: Yes (HEART VALVE REPLACEMENT) - Psycho/Social/Smoking Cessation Hx Anxiety: No Suicidal Ideation: No Smoking History: Never smoked Hx Alcohol Use: No Drug/Substance Use Hx: No Substance Use Type: None Hx Substance Use Treatment: No <Trang Johnson - Last Filed: 06/16/17 01:00> - Past Medical History Allergies/Adverse Reactions: Allergies Allergy/AdvReac Type Severity Reaction Status Date / Time bacitracin Allergy Rash Verified 06/15/17 20:54 Penicillins Allergy Verified 06/15/17 20:54 TAPE Allergy Uncoded 06/15/17 20:54 Home Medications: Ambulatory Orders Alectinib HCl [Alecensa] 150 mg PO BID 03/26/17 Apixaban [Eliquis -] 2.5 mg PO BID 03/26/17 Carvedilol [Coreg -] 12.5 mg PO DAILY 03/26/17 Furosemide [Lasix -] 40 mg PO DAILY 03/26/17 Montelukast Na [Singulair -] 10 mg PO HS 03/26/17 Potassium Chloride [K-Tab ER] 20 meq PO DAILY 03/26/17 Quetiapine Fumarate [Seroquel] 100 mg PO HS 03/26/17 Tramadol HCl [Ultram -] 50 mg PO Q6H PRN #30 tablet MDD 4 03/29/17 Review of Systems - Review of Systems Able to Perform ROS?: Yes Comments:: 06/15/17 21:10 CONSTITUTIONAL: Present: fever. rigors. Absent: diaphoresis, generalized weakness, malaise, loss of appetite HEENT: Absent: rhinorrhea, nasal congestion, throat pain, throat swelling, difficulty swallowing, mouth swelling, ear pain, eye pain, visual Changes CARDIOVASCULAR: Absent: chest pain, syncope, palpitations, irregular heart rate, lightheadedness , peripheral edema RESPIRATORY: Present: cough. Absent: shortness of breath, dyspnea with exertion, orthopnea, stridor, hemoptysis GASTROINTESTINAL: Absent: abdominal pain, abdominal distension, nausea, vomiting, diarrhea, constipation, melena, hematochezia GENITOURINARY: Absent: dysuria, frequency, urgency, hesitancy, hematuria, flank pain, genital pain MUSCULOSKELETAL: Absent: myalgia, arthralgia, joint swelling SKIN: Absent: rash, itching, pallor HEMATOLOGIC/IMMUNOLOGIC: Absent: easy bleeding, easy bruising, lymphadenopathy, frequent infections ENDOCRINE: Absent: unexplained weight gain, unexplained weight loss, heat intolerance, cold intolerance NEUROLOGIC: Absent: headache, focal weakness or paresthesias, dizziness, unsteady gait, seizure,bladder or bowel incontinence PSYCHIATRIC: Absent: anxiety, depression, suicidal or homicidal ideation, hallucinations. <Jorge Mondragon - Last Filed: 06/15/17 21:10> *Physical Exam - Vital Signs Last Vital Signs Temp Pulse Resp BP Pulse Ox 103.3 F H 83 16 144/76 98 06/15/17 20:55 06/15/17 20:55 06/15/17 20:55 06/15/17 20:55 06/15/17 20:55 - Physical Exam Comments: 06/15/17 21:11 GENERAL: Well developed, well nourished. Awake and alert. In distress. Tearful. HEENT: Normocephalic, atraumatic. PERRLA, EOMI. No conjunctival pallor. Sclera are non- icteric. Moist mucous membranes. Oropharynx is clear. NECK: Supple. Full ROM. No JVD. Carotid pulses 2+ and symmetric, without bruits. No thyromegaly. No lymphadenopathy. CARDIOVASCULAR: Regular rate and rhythm. Normotensive. No murmurs, rubs, or gallops. Distal pulses are 2+ and symmetric. PULMONARY: Slightly wheezing. No evidence of respiratory distress. No rales or rhonchi. ABDOMINAL: Protuberant belly but Soft. Non-tender. Non-distended. No rebound or guarding. No organomegaly. Normoactive bowel sounds. MUSCULOSKELETAL Normal range of motion at all joints. No bony deformities or tenderness. No CVA tenderness. EXTREMITIES: Pitting edema. Chronic venous stasis with weeping leg ulcers. Goes to wound care for that No cyanosis. No clubbing. No calf tenderness. SKIN: Warm and dry. Normal capillary refill. No rashes. No jaundice. NEUROLOGICAL: Alert, awake, appropriate. Cranial nerves 2-12 intact. No deficits to light touch and temperature in face, upper extremities and lower extremities. No motor deficits in the in face, upper extremities and lower extremities. Normoreflexic in the upper and lower extremities. Normal speech. Toes are down-going bilaterally. Gait is normal without ataxia. PSYCHIATRIC: Cooperative. Good eye contact. Appropriate mood and affect. <Jorge Mondragon - Last Filed: 06/15/17 21:10> ED Treatment Course - LABORATORY CBC & Chemistry Diagram: 06/15/17 21:15 06/15/17 23:30 <Trang Johnson - Last Filed: 06/16/17 01:00> *DC/Admit/Observation/Transfer - Attestations Scribe Attestion: 06/15/17 21:14 Documentation prepared by Jorge Mondragon, acting as medical chief technician for Trang Johnson MD. <Jorge Mondragon - Last Filed: 06/15/17 21:10> - Discharge Dispostion Admit: Yes <Trang Johnson - Last Filed: 06/16/17 01:00> Diagnosis at time of Disposition: Systemic inflammatory response syndrome (SIRS), Lung mass Dementia Qualifiers: Dementia type: unspecified type Dementia behavioral disturbance: without behavioral disturbance Qualified Code(s): F03.90 - Unspecified dementia without behavioral disturbance Atrial fibrillation Qualifiers: Atrial fibrillation type: chronic Qualified Code(s): I48.2 - Chronic atrial fibrillation Pneumonia Qualifiers: Pneumonia type: due to unspecified organism Laterality: bilateral Lung location : lower lobe of lung Qualified Code(s): J18.9 - Pneumonia, unspecified organism UTI (urinary tract infection) Qualifiers: Urinary tract infection type: site unspecified Hematuria presence: without hematuria Qualified Code(s): N39.0 - Urinary tract infection, site not specified Fever Qualifiers: Fever type: due to other condition Qualified Code(s): R50.81 - Fever presenting with conditions classified elsewhere - Referrals Referrals: Binh Garcia MD [Primary Care Provider] -
[2017-06-15] MEDS ORDERED: ACETAMINOPHEN 1000 MG/100 ML VIAL (NON FORMULARY) IVPB ONE (20:56)
[2017-06-15 20:59] VITALS: BMI 26.4
[2017-06-15] MEDS ORDERED: ACETAMINOPHEN INJECTION 100 ML IVPB ONE (20:59)
[2017-06-15 21:37] LABS: MCH 31.5 pg (25.7-33.7); MCHC 33.3 g/dl (32.0-36.0); MEAN CELL VOLUME 94.7 fl (80-96); MEAN PLT VOLUME 9.1 fl (7.5-11.1); PLATELET COUNT 148 K/MM3 (134-434); RDW 17.3 % (11.6-15.6); WHITE BLOOD COUNT 25.9 K/mm3 (4.0-10.0)
[2017-06-15 21:50] LABS: INR 1.56 (0.82-1.09); PROTHROMBIN TIME (PATIENT) 17.3 SEC (9.98-11.88)
[2017-06-15 21:52] LABS: VENOUS BLOOD GAS HCO3 29.8 meq/L (19-25); VENOUS PH 7.42 (7.32-7.42)
[2017-06-15 21:52] LABS: ACTIVATED PTT 35.1 SECONDS (26.9-34.4)
[2017-06-15 22:05] LABS: PLATELET ESTIMATE ADEQUATE (NORMAL)
[2017-06-15 23:38] LABS: URINE APPEARANCE SLCLOUDY; URINE BILIRUBIN NEGATIVE (NEGATIVE); URINE COLOR YELLOW; URINE GLUCOSE (UA) NEGATIVE (NEGATIVE); URINE KETONE NEGATIVE (NEGATIVE); URINE NITRITE NEGATIVE (NEGATIVE); URINE UROBILINOGEN NEGATIVE mg/dL (0.2-1.0)
[2017-06-15 23:47] LABS: URINE BLOOD 2+ (NEGATIVE); URINE LEUK ESTERASE TRACE (NEGATIVE); URINE PROTEIN 2+ (NEGATIVE)
[2017-06-15 23:50] LABS: URINE BACTERIA RARE /hpf (NONE SEEN); URINE HYALINE CAST 1 /lpf; URINE MUCUS RARE; URINE RBC 13 /hpf (0-3); URINE WBC 25 /hpf (3-5)
[2017-06-15] MEDS ORDERED: LEVOFLOXACIN 750 MG IVPB 150 ML IVPB ONE (23:54)
[2017-06-16 00:06] LABS: ALBUMIN 3.1 g/dl (3.4-5.0); ANION GAP 10 (8-16); BILIRUBIN,TOTAL 0.9 mg/dL (0.2-1.0); CALCIUM 8.4 mg/dL (8.5-10.1); CO2 28 mmol/L (21-32); CREATININE 1.2 mg/dL (0.55-1.02); GLUCOSE,RANDOM 133 mg/dL (74-106); SGOT/AST 29 U/L (15-37); SGPT/ALT 18 U/L (12-78); TOT PROT 7.4 g/dl (6.4-8.2)
[2017-06-16 00:07] LABS: ALK PHOS 121 U/L (45-117)
[2017-06-16] MEDS ORDERED: LEVOFLOXACIN 750 MG IVPB 150 ML IVPB ONE (00:40)
[2017-06-16] MEDS ORDERED: ACETAMINOPHEN 325 MG TABLET (FP) PO PRN (08:40)
[2017-06-16] MEDS: FUROSEMIDE 40 MG TABLET (FP) PO SCH (10:28)
[2017-06-16] MEDS: CARVEDILOL 12.5 MG TABLET (FP) PO SCH (10:28)
[2017-06-16] MEDS: APIXABAN 2.5 MG TABLET PO SCH ×2 (10:28→22:03)
[2017-06-16] MEDS: traMADol HCL 50 MG TABLET PO PRN (10:29)
[2017-06-16] MEDS: POTASSIUM CHLORIDE TABS 20 MEQ TABLET.ER (FP) PO SCH (10:29)
[2017-06-16] MEDS ORDERED: PT OWN MED DRAWER 7, Y5N ONE ×2 (10:36→20:11)
--- NOTE | 2017-06-16 11:28 | HP ---
Admitting History and Physical - Primary Care Physician PCP: Binh Garcia - Admission Chief Complaint: not feeling well. History of Present Illness: The patient is a 86 year old female with a significant past medical history of lung cancer (stage 4)(2 years of treatment, now only taking chemo pills), heart valve replacement-- bio aortic valve, atrial fibrillation , Dementia, HLD, who presents to the ED from home with fevers, rigors, and cough. Patient denies chest pain, SOB, headache, dizziness, nausea, vomiting, diarrhea. Patient denies dysuria, frequency, hematuria. Patient is always oxygen dependent, at least 2 liters. Allergies: Bacitracin, penicillin and tape Past surgical history: Heart Valve replacement Social history: No alcohol, tobacco or drug use reported PMD - Dr. Binh Garcia oncologist Dr. Rico ([place]) chemo-- Alectinib (Alecensa) pt had temp of 103 in er cxr - showed possible pneumonia and also u/a + ve for uti pt given levaquin/ cultures taken and admitted case was discussed with er physician peanut picker pt seen/ examined today . chart reviewed no distress. feels weak but denies cp/ sob. denies abd pain. 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: Yes: Alzheimer's Cardiovascular: Yes: Aortic Stenosis (s/p AVR- bioprosthetic valve- not on Coumadin - was dc by on Dec 2104), HTN, Hyperlipdemia - Past Surgical History Past Surgical History: Yes: Valve Replacement - Smoking History Smoking history: Never smoked Have you smoked in the past 12 months: No - Alcohol/Substance Use Hx Alcohol Use: No - Social History ADL: Family Assistance History of Recent Travel: No Home Medications - Allergies Allergies/Adverse Reactions: Allergies Allergy/AdvReac Type Severity Reaction Status Date / Time bacitracin Allergy Rash Verified 06/15/17 20:54 Penicillins Allergy Verified 06/15/17 20:54 TAPE Allergy Uncoded 06/15/17 20:54 - Home Medications Home Medications: Ambulatory Orders Alectinib HCl [Alecensa] 150 mg PO BID 03/26/17 Apixaban [Eliquis -] 2.5 mg PO BID 03/26/17 Carvedilol [Coreg -] 12.5 mg PO DAILY 03/26/17 Furosemide [Lasix -] 40 mg PO DAILY 03/26/17 Montelukast Na [Singulair -] 10 mg PO HS 03/26/17 Potassium Chloride [K-Tab ER] 20 meq PO DAILY 03/26/17 Quetiapine Fumarate [Seroquel] 100 mg PO HS 03/26/17 Tramadol HCl [Ultram -] 50 mg PO Q6H PRN #30 tablet MDD 4 03/29/17 Family Disease History - Family Disease History Family Disease History: Other: Daughter (pe) Review of Systems Unable to obtain ROS, reason: see [place] Physical Examination Vital Signs: Vital Signs Temperature 98.7 F 06/16/17 06:00 Pulse Rate 75 06/16/17 10:34 Respiratory Rate 20 06/16/17 06:00 Blood Pressure 143/73 06/16/17 06:00 O2 Sat by Pulse Oximetry (%) 92 L 06/16/17 10:34 Constitutional: Yes: No Distress, Calm Eyes: Yes: Conjunctiva Clear Neck: Yes: Supple Cardiovascular: Yes: Pulse Irregular. No: Regular Rate and Rhythm Respiratory: Yes: Rhonchi Gastrointestinal: Yes: Normal Bowel Sounds, Soft Extremities: Yes: Erythema (both ankles) Edema: No Peripheral Pulses WNL: Yes Neurological: Yes: Alert Psychiatric: Yes: Alert Imaging - Results Chest X-ray: Report Reviewed EKG: Report Reviewed Problem List - Problems (1) Fever Code(s): R50.9 - FEVER, UNSPECIFIED Qualifiers: Fever type: due to other condition Qualified Code(s): R50.81 - Fever presenting with conditions classified elsewhere (2) Pneumonia Code(s): J18.9 - PNEUMONIA, UNSPECIFIED ORGANISM Qualifiers: Pneumonia type: due to unspecified organism Laterality: bilateral Lung location: lower lobe of lung Qualified Code(s): J18.9 - Pneumonia, unspecified organism (3) UTI (urinary tract infection) with pyuria Code(s): N39.0 - URINARY TRACT INFECTION, SITE NOT SPECIFIED (4) Atrial fibrillation Code(s): I48.91 - UNSPECIFIED ATRIAL FIBRILLATION Qualifiers: Atrial fibrillation type: chronic Qualified Code(s): I48.2 - Chronic atrial fibrillation (5) Dementia Code(s): F03.90 - UNSPECIFIED DEMENTIA WITHOUT BEHAVIORAL DISTURBANCE Qualifiers: Dementia type: unspecified type Dementia behavioral disturbance: without behavioral disturbance Qualified Code(s): F03.90 - Unspecified dementia without behavioral disturbance (6) H/O aortic valve replacement Code(s): Z95.2 - PRESENCE OF PROSTHETIC HEART VALVE (7) Lung cancer Code(s): C34.90 - MALIGNANT NEOPLASM OF UNSP PART OF UNSP BRONCHUS OR LUNG Qualifiers: Laterality: unspecified laterality Lung location: unspecified part of lung Qualified Code(s): C34.90 - Malignant neoplasm of unspecified part of unspecified bronchus or lung (8) HTN (hypertension) Code(s): I10 - ESSENTIAL (PRIMARY) HYPERTENSION Qualifiers: Hypertension type: essential hypertension Qualified Code(s): I10 - Essential (primary) hypertension Assessment/Plan Abx nebulizer treatment f/u cultures meds reviewed orders written. ct chest . will follow discussed with nursing staff also time spend 40 min in examining / documenting and coordinating care.
--- NOTE | 2017-06-16 12:35 | EKG ---
Test Reason : Blood Pressure : / mmHG Vent. Rate : 086 BPM Atrial Rate : 394 BPM P-R Int : 000 ms QRS Dur : 094 ms QT Int : 400 ms P-R-T Axes : 000 026 027 degrees QTc Int : 478 ms ATRIAL FIBRILLATION NONSPECIFIC ST ABNORMALITY ABNORMAL ECG WHEN COMPARED WITH ECG OF 10-AUG-2016 12:57, NO SIGNIFICANT CHANGE WAS FOUND Confirmed by RAMAN ESQUIVEL MD ([id number]) on 06/16/2017 12:34:53 PM Referred By: Confirmed By:RAMAN ESQUIVEL MD
[2017-06-16] MEDS: ALECTINIB HCL 150 MG PO SCH ×2 (12:50→21:16)
[2017-06-16] MEDS: ALBUTEROL SO4 0.083% IH SOL 2.5 MG/3 ML VIAL.NEB. NEB PRN ×2 (13:22→19:45)
[2017-06-16] MEDS ORDERED: ONDANSETRON *ODT* 4 MG TABLET SL PRN (18:36)
[2017-06-16] MEDS ORDERED: LEVOFLOXACIN 500 MG IVPB 100 ML IVPB SCH (20:00)
[2017-06-16] MEDS: LEVOFLOXACIN 250 MG IVPB 50 ML IVPB SCH (20:29)
[2017-06-16] MEDS: MONTELUKAST NA 10 MG TABLET PO SCH (21:16)
[2017-06-16] MEDS: QUEtiapine FUMARATE 100 MG TABLET (FP) PO SCH (21:16)
[2017-06-17 08:14] LABS: BASOPHIL 0.3 % (0-2.0); EOSINOPHIL 0.5 % (0-4.5); MCH 32.3 pg (25.7-33.7); MCHC 34.3 g/dl (32.0-36.0); MEAN CELL VOLUME 94.2 fl (80-96); NEUTROPHILS 82.5 % (42.8-82.8); PLATELET COUNT 86 K/MM3 (134-434); RDW 17.2 % (11.6-15.6); WHITE BLOOD COUNT 16.3 K/mm3 (4.0-10.0)
[2017-06-17 08:21] LABS: ALBUMIN 2.7 g/dl (3.4-5.0); ANION GAP 9 (8-16); CALCIUM 8.6 mg/dL (8.5-10.1); CO2 30 mmol/L (21-32); CREATININE 1.2 mg/dL (0.55-1.02); GLUCOSE,RANDOM 81 mg/dL (74-106); SGOT/AST 30 U/L (15-37); SGPT/ALT 19 U/L (12-78)
[2017-06-17 08:23] LABS: ALK PHOS 107 U/L (45-117); BILIRUBIN,TOTAL 1.3 mg/dL (0.2-1.0); TOT PROT 6.9 g/dl (6.4-8.2)
[2017-06-17] MEDS: CARVEDILOL 12.5 MG TABLET (FP) PO SCH (09:10)
[2017-06-17] MEDS: FUROSEMIDE 40 MG TABLET (FP) PO SCH (09:10)
[2017-06-17] MEDS: POTASSIUM CHLORIDE TABS 20 MEQ TABLET.ER (FP) PO SCH (09:10)
[2017-06-17] MEDS: ALECTINIB HCL 150 MG PO SCH ×2 (09:10→21:03)
[2017-06-17] MEDS: APIXABAN 2.5 MG TABLET PO SCH ×2 (09:10→21:03)
--- NOTE | 2017-06-17 11:12 | PN ---
Progress Note, Physician Chief Complaint: Daughter at bedside Pt states she choked on her meds this morning-- the nurse said that it was the big potassium tabs No laboured breathing No distress no burning in urination has occasional cough states she is not getting oxygen through [place]-- but O2 sat is 93-94% on 3L. She has O2 at home - Current Medication List Current Medications: Active Medications Acetaminophen (Tylenol -) 650 mg PO Q6H PRN PRN Reason: FEVER OR PAIN Albuterol Sulfate (Ventolin 0.083% Nebulizer Soln -) 1 amp NEB Q4H PRN PRN Reason: SHORT OF BREATH/WHEEZING Last Admin: 06/16/17 19:45 Dose: 1 amp Apixaban (Eliquis -) 2.5 mg PO BID [facility] Last Admin: 06/17/17 09:10 Dose: 2.5 mg Carvedilol (Coreg -) 12.5 mg PO DAILY [facility] Last Admin: 06/17/17 09:10 Dose: 12.5 mg Furosemide (Lasix -) 40 mg PO DAILY [facility] Last Admin: 06/17/17 09:10 Dose: 40 mg Levofloxacin (Levaquin 250 Mg Premixed Ivpb -) 50 mls @ 50 mls/hr IVPB DAILY@ 1999 [facility] Last Admin: 06/16/17 20:29 Dose: 50 mls/hr Montelukast Sodium (Singulair -) 10 mg PO HS [facility] Last Admin: 06/16/17 21:16 Dose: 10 mg Non-Formulary Medication (Alectinib Hcl [Alecensa]) 150 mg PO BID [facility] Last Admin: 06/17/17 09:10 Dose: 150 mg Ondansetron HCl (Zofran Odt -) 4 mg SL Q8H PRN PRN Reason: NAUSEA Potassium Chloride (K-Dur -) 20 meq PO DAILY [facility] Last Admin: 06/17/17 09:10 Dose: 20 meq Quetiapine Fumarate (Seroquel -) 100 mg PO HS [facility] Last Admin: 06/16/17 21:16 Dose: 100 mg Tramadol HCl (Ultram -) 50 mg PO Q6H PRN PRN Reason: BACK PAIN Last Admin: 06/16/17 10:29 Dose: 50 mg - Objective Vital Signs: Vital Signs Temperature 97.4 F L 06/17/17 08:08 Pulse Rate 83 07/18/17 08:08 Respiratory Rate 18 06/17/17 08:08 Blood Pressure 112/53 06/17/17 08:08 O2 Sat by Pulse Oximetry (%) 93 L 06/16/17 21:00 Constitutional: Yes: Calm Cardiovascular: Yes: Pulse Irregular Respiratory: Yes: Diminished (rt and left), Rhonchi (left) Gastrointestinal: Yes: Normal Bowel Sounds, Soft, Abdomen, Obese. No: Distention, Tenderness Edema: Yes Edema: LLE: Trace, RLE: Trace Psychiatric: Yes: Alert, Oriented Labs: CBC, BMP 06/17/17 06:55 06/17/17 06:55 INR, PTT INR 1.56 (0.82-1.09) H 06/15/17 21:15 - ....Imaging Cat Scan: Report Reviewed Problem List - Problems (1) Atrial fibrillation Code(s): I48.91 - UNSPECIFIED ATRIAL FIBRILLATION Qualifiers: Atrial fibrillation type: chronic Qualified Code(s): I48.2 - Chronic atrial fibrillation (2) Lung cancer Code(s): C34.90 - MALIGNANT NEOPLASM OF UNSP PART OF UNSP BRONCHUS OR LUNG Qualifiers: Laterality: left Lung location: upper lobe of lung Qualified Code(s): C34.12 - Malignant neoplasm of upper lobe, left bronchus or lung (3) Pneumonia Code(s): J18.9 - PNEUMONIA, UNSPECIFIED ORGANISM Qualifiers: Pneumonia type: due to unspecified organism Laterality: bilateral Lung location: lower lobe of lung Qualified Code(s): J18.9 - Pneumonia, unspecified organism (4) UTI (urinary tract infection) Code(s): N39.0 - URINARY TRACT INFECTION, SITE NOT SPECIFIED Qualifiers: Urinary tract infection type: site unspecified Hematuria presence: without hematuria Qualified Code(s): N39.0 - Urinary tract infection, site not specified Assessment/Plan PLAN Leucytosis trending down Blood cultures negative ,urine cultures pending CT chest noted-- right sided infiltrates and left lung mass pt currently on chemotherapy-- ID eval for antibiotics-- if she needs more broad spectrum check urine antigens OOB daily on eliquis DVT prophylaxis-- Eliquis palliative care eval with regarding advance directives
--- NOTE | 2017-06-17 14:37 | CONSULT ---
Consultation: REQUESTING PROVIDER: CONSULT REQUEST: We have been asked to medically evaluate this patient for suspected PNA/UTI. HISTORY OF PRESENT ILLNESS: 86 year old woman with pmh of Lung Ca (Stage 4, receiving chemo tx for 2 years) , Aortic valve replacement, a-fib and dementia, who presented to the ED two days ago with fatigue during ambulation in the setting of productive cough and fever of a few days duration. At baseline, pt requires home O2 and lives at home w/ an aid who helps with daily chores, but requires 2L home O2 PRN per pt. Pt was in this usual state of health when she reports worsening of her chronic cough, with increased white phlegm production, and fever at home that began a few days prior to admission. Two days prior to current admission, she endorses an episode of severe fatigue after ambulating to the bathroom. Pt's daughter was concerned and activated EMS. Pt denies GARCIA, SOB, syncope, N/V, chest pain, dysuria, diarrhea, LE edema, abdominal pain. She endorses decreased PO intake, generalized weakness, productive cough and BL LE cellulitis. In ED, pt was febrile to 103 w/ cxr suggestive of possible PNA, in addition to UA suggestive of possible UTI. Cultures were taken and pt was begun on course of levaquin and admitted to medicine service. Of note, patient has been hospitalized four times in the last few years for PNAs, but has never required intubation. She denies any sick contacts, recent travel, pets or strange hobbies. PMHx Lung cancer stage 4 (2 yrs prior tx) A-fib Dementia HLD PSHx Bio aortic valve replacement - 2014 Varicose veins Allergies Bactracin - Rash Penicillin - Unknown Tape - Unknown Fam Hx Son w/ DM2 Family Heart/Lung dz? 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 Never smoker, no drugs or alcohol REVIEW OF SYSTEMS: CONSTITUTIONAL: Fever, weakness, CHELSEA Absent: fever, chills, diaphoresis, generalized weakness, malaise, loss of appetite, weight change HEENT: Absent: rhinorrhea, nasal congestion, throat pain, throat swelling, difficulty swallowing, mouth swelling, ear pain, eye pain, visual changes CARDIOVASCULAR: Absent: chest pain, syncope, palpitations, irregular heart rate, lightheadedness , peripheral edema RESPIRATORY: Cough Absent: cough, shortness of breath, dyspnea with exertion, orthopnea, wheezing, stridor, hemoptysis GASTROINTESTINAL: abdominal distension Absent: abdominal pain, abdominal distension, nausea, vomiting, diarrhea, constipation, melena, hematochezia GENITOURINARY: Absent: dysuria, frequency, urgency, hesitancy, hematuria, flank pain, genital pain MUSCULOSKELETAL: Absent: myalgia, arthralgia, joint swelling, back pain, neck pain SKIN: BL LE rash in feet Absent: rash, itching, pallor HEMATOLOGIC/IMMUNOLOGIC: Absent: easy bleeding, easy bruising, lymphadenopathy, frequent infections ENDOCRINE: Absent: unexplained weight gain, unexplained weight loss, heat intolerance, cold intolerance NEUROLOGIC: Absent: headache, focal weakness or paresthesias, dizziness, unsteady gait, seizure, mental status changes, bladder or bowel incontinence PSYCHIATRIC: Absent: anxiety, depression, suicidal or homicidal ideation, hallucinations. PHYSICAL EXAMINATION Vital Signs - 24 hr 06/16/17 06/16/17 06/16/17 14:51 16:20 21:00 Temperature 98.2 F 98.2 F Pulse Rate 77 77 Respiratory 16 20 Rate Blood Pressure 140/55 125/71 O2 Sat by Pulse 93 L Oximetry (%) 06/16/17 06/17/17 06/17/17 21:58 06:14 08:08 Temperature 98.1 F 98.5 F 97.4 F L Pulse Rate 77 82 83 Respiratory 18 18 18 Rate Blood Pressure 111/62 101/35 112/53 O2 Sat by Pulse Oximetry (%) 06/17/17 06/17/17 09:00 11:10 Temperature Pulse Rate 75 Respiratory Rate Blood Pressure O2 Sat by Pulse 94 L 95 Oximetry (%) GENERAL: Awake, alert, and fully oriented, in no acute distress, on NC. HEAD: Normal with no signs of trauma. EYES: Pupils equal, round and reactive to light, extraocular movements intact, sclera anicteric, conjunctiva clear. No lid lag. EARS, NOSE, THROAT: Ears normal, nares patent, oropharynx clear without exudates. Moist mucous membranes. NECK: Supple without lymphadenopathy, JVD, or masses. LUNGS: Breath sounds decreased diffusely across all feels. Faint crackles in lower lung hook. Slight inspiratory wheeze midline. No accessory muscle use. HEART: Regular rate and rhythm, 2/6 systolic murmur RUSB, normal S1 and S2. No gallops or rubs. ABDOMEN: Soft, nontender, significantly distended. Suspected ascites w/ positive fluid wave. Normoactive bowel sounds, no guarding, no rebound, no masses. Splenomegaly noted. MUSCULOSKELETAL: No bony deformities or tenderness. No CVA tenderness. UPPER EXTREMITIES: 2+ pulses, warm, well-perfused. No cyanosis. No clubbing. Cap refill <2 seconds. No peripheral edema. LOWER EXTREMITIES: 2+ pulses, warm, well-perfused. No calf tenderness. Bilateral LE edema, with erythema/cellulitis bilaterally from anterior dejesus, throughout feet. Diffuse vesicles on anterior aspect. NEUROLOGICAL: Cranial nerves II-XII intact. Normal speech. Gait not assessed PSYCHIATRIC: Cooperative. Good eye contact. Appropriate mood and affect. SKIN: Warm, dry, normal turgor Laboratory Results - last 24 hr 06/17/17 06/17/17 06:55 06:55 WBC 16.3 H D RBC 3.12 L D Hgb 10.1 L D Hct 29.4 L D MCV 94.2 MCH 32.3 MCHC 34.3 RDW 17.2 H Plt Count 86 L D MPV 9.0 Neutrophils % 82.5 Lymphocytes % 8.9 Monocytes % 7.8 Eosinophils % 0.5 D Basophils % 0.3 Sodium 135 L Potassium 4.0 Chloride 96 L Carbon Dioxide 30 Anion Gap 9 BUN 28 H Creatinine 1.2 H Creat Clearance w eGFR 42.70 Random Glucose 81 D Calcium 8.6 Total Bilirubin 1.3 H D AST 30 ALT 19 Alkaline Phosphatase 107 Total Protein 6.9 Albumin 2.7 L Microbiology 06/15/17 23:30 Urine Culture - Preliminary Urine - Urine Clean Catch Lactose Fermenting Neg Bacilli Non Lactose Fermenting Gnb 06/15/17 21:15 Blood Culture - Preliminary Blood - Peripheral Venous NO GROWTH OBTAINED AFTER 24 HOURS, INCUBATION TO CONTINUE FOR 4 DAYS. 06/15/17 21:15 Blood Culture - Preliminary Blood - Peripheral Venous NO GROWTH OBTAINED AFTER 24 HOURS, INCUBATION TO CONTINUE FOR 4 DAYS. CXR: Reviewed and aware CT Chest - Mass like density with accompanying airspace dz in L mid lung field. Small L pleural effusion. Patchy opacities RL, suggestive of possible infiltrate. 1.1 cm nodule of R pleural. Active Medications Generic Name Dose Route Start Last Admin Trade Name Freq PRN Reason Stop Dose Admin Acetaminophen 650 mg 06/16/17 08:40 Tylenol - PO Q6H PRN FEVER OR PAIN Albuterol Sulfate 1 amp 06/16/17 08:37 06/16/17 19:45 Ventolin 0.083% Nebulizer Soln - NEB 1 amp Q4H PRN Administration SHORT OF BREATH/WHEEZING Apixaban 2.5 mg 06/16/17 10:00 06/17/17 09:10 Eliquis - PO 2.5 mg BID DES Administration Carvedilol 12.5 mg 06/16/17 10:00 06/17/17 09:10 Coreg - PO 12.5 mg DAILY DES Administration Furosemide 40 mg 06/16/17 10:00 06/17/17 09:10 Lasix - PO 40 mg DAILY DES Administration Levofloxacin 50 mls @ 50 mls/hr 06/16/17 20:00 06/16/17 20:29 Levaquin 250 Mg Premixed Ivpb - IVPB 50 mls/hr DAILY@2000 DES Administration Montelukast Sodium 10 mg 06/16/17 22:00 06/16/17 21:16 Singulair - PO 10 mg HS DES Administration Non-Formulary Medication 150 mg 06/16/17 12:30 06/17/17 09:10 Alectinib Hcl [Alecensa] PO 150 mg BID DES Administration Ondansetron HCl 4 mg 06/16/17 18:36 Zofran Odt - SL Q8H PRN NAUSEA Potassium Chloride 20 meq 06/18/17 10:00 Potassium Chloride Oral Liquid PO DAILY DES Quetiapine Fumarate 100 mg 06/16/17 22:00 06/16/17 21:16 Seroquel - PO 100 mg HS DES Administration Tramadol HCl 50 mg 06/16/17 08:36 06/16/17 10:29 Ultram - PO 50 mg Q6H PRN Administration BACK PAIN ASSESSMENT/PLAN: Assessment 86 year old woman with pmh of Lung Ca (Stage 4, receiving chemo tx for 2 years) , Aortic valve replacement, a-fib and dementia, who presented to the ED two days ago with fatigue during ambulation in the setting of productive cough and fever of a few days duration. Plan #Pneumonia - Continue levaquin 250 mg daily, Adjusted for renal insufficiency. - Trend fever, white count - AM CBC to monitor thrombocytopenia - f/u blood cx's - Sputum cx if expectorating #Possible UTI - Likely asymptomatic bacteriuria. Polymicrobial GN bacilli growth on urine Cx. - Monitor for urinary symptoms. Not currently symptomatic - Continue Abx coverage with current course of levaquin #Venous stasis(lower extremity) - F/u outpatient wound care - daily dressing changes - Santyl #Lung Neoplasm - NSCLC per note. Currently on oral TKI regimen. Monitor for possible side effects - Alk phos elevation likely side effect of chemo drug Neo Bill MD, PGY1 Discussed plan with attending, Dr. Thomas Dispo: We will continue to follow the patient. Thank you for this consultative opportunity. Visit type - Emergency Visit Emergency Visit: No - New Patient This patient is new to me today: No - Critical Care Critical Care patient: No
[2017-06-17] MEDS: COLLAGENASE CLOSTRIDIUM HIST. 30 GRAMS TUBE TP SCH (18:01)
[2017-06-17] MEDS: POLYETHYLENE GLYCOL 3350 119 GM BTL PO PRN (18:30)
[2017-06-17] MEDS ORDERED: PT OWN MED DRAWER 7, Y5N ONE (20:26)
[2017-06-17] MEDS: MONTELUKAST NA 10 MG TABLET PO SCH (21:03)
[2017-06-17] MEDS: QUEtiapine FUMARATE 100 MG TABLET (FP) PO SCH (21:03)
[2017-06-17] MEDS: LEVOFLOXACIN 250 MG IVPB 50 ML IVPB SCH (21:03)
--- NOTE | 2017-06-17 22:18 | PN ---
Teaching Attending Note Name of Resident: Neo Bill ATTENDING PHYSICIAN STATEMENT I saw and evaluated the patient. I reviewed the resident's note and discussed the case with the resident. I agree with the resident's findings and plan as documented. SUBJECTIVE: alert, no longer febrile OBJECTIVE: Vital Signs Period Temp Pulse Resp BP Sys/Ma Pulse Ox Last 24 Hr 97.4 F-98.5 F 75-83 16-20 101-112/35-60 94-95 cor-rrr lungs decreased bs at bases abd soft,nt ext shallow venous stasis ulcers both legs, faint erythema, no purulent drainage +edema CBC, BMP 06/17/17 06:55 06/17/17 06:55 ASSESSMENT AND PLAN: fevers- cough probable pneumonia lung cancer doubt UTI- not symptomatic suspect asymptomatic bacteriuria wbc coming down, now afebrile continue levaquin adjusted for renal insuff thrombocytopenia- repeat cbc in am pen allergy-tolerates cephalosporins
[2017-06-18] MEDS ORDERED: PT OWN MED DRAWER 7, Y5N ONE ×2 (05:30→10:23)
[2017-06-18 08:24] LABS: BASOPHIL 0.4 % (0-2.0); EOSINOPHIL 1.3 % (0-4.5); MCH 32.5 pg (25.7-33.7); MCHC 34.4 g/dl (32.0-36.0); MEAN CELL VOLUME 94.7 fl (80-96); MEAN PLT VOLUME 9.7 fl (7.5-11.1); NEUTROPHILS 76.2 % (42.8-82.8); PLATELET COUNT 95 K/MM3 (134-434); RDW 17.1 % (11.6-15.6); WHITE BLOOD COUNT 10.7 K/mm3 (4.0-10.0)
[2017-06-18 08:28] LABS: ALBUMIN 2.8 g/dl (3.4-5.0); ALK PHOS 118 U/L (45-117); ANION GAP 8 (8-16); BILIRUBIN,TOTAL 1.2 mg/dL (0.2-1.0); CALCIUM 8.8 mg/dL (8.5-10.1); CO2 30 mmol/L (21-32); CREATININE 1.1 mg/dL (0.55-1.02); GLUCOSE,RANDOM 100 mg/dL (74-106); SGOT/AST 35 U/L (15-37); SGPT/ALT 24 U/L (12-78); TOT PROT 7.2 g/dl (6.4-8.2)
[2017-06-18] MEDS: ALBUTEROL SO4 0.083% IH SOL 2.5 MG/3 ML VIAL.NEB. NEB PRN ×2 (09:00→12:06)
[2017-06-18] MEDS: CARVEDILOL 12.5 MG TABLET (FP) PO SCH (10:26)
[2017-06-18] MEDS: ALECTINIB HCL 150 MG PO SCH (10:26)
[2017-06-18] MEDS: FUROSEMIDE 40 MG TABLET (FP) PO SCH (10:26)
[2017-06-18] MEDS: APIXABAN 2.5 MG TABLET PO SCH ×2 (10:26→21:17)
[2017-06-18] MEDS: POLYETHYLENE GLYCOL 3350 119 GM BTL PO PRN (10:27)
[2017-06-18] MEDS: COLLAGENASE CLOSTRIDIUM HIST. 30 GRAMS TUBE TP SCH (10:27)
--- NOTE | 2017-06-18 11:19 | PN ---
Progress Note, Physician Chief Complaint: appears SOB daughter at bedside no chest pain on 4 L O2 NC - Current Medication List Current Medications: Active Medications Acetaminophen (Tylenol -) 650 mg PO Q6H PRN PRN Reason: FEVER OR PAIN Albuterol Sulfate (Ventolin 0.083% Nebulizer Soln -) 1 amp NEB Q4H PRN PRN Reason: SHORT OF BREATH/WHEEZING Last Admin: 06/18/17 09:00 Dose: 1 amp Apixaban (Eliquis -) 2.5 mg PO BID [facility] Last Admin: 06/18/17 10:26 Dose: 2.5 mg Carvedilol (Coreg -) 12.5 mg PO DAILY [facility] Last Admin: 06/18/17 10:26 Dose: 12.5 mg Collagenase (Santyl -) 1 applic TP DAILY [facility] Last Admin: 06/18/17 10:27 Dose: 1 applic Furosemide (Lasix -) 40 mg PO DAILY [facility] Last Admin: 06/18/17 10:26 Dose: 40 mg Levofloxacin (Levaquin 250 Mg Premixed Ivpb -) 50 mls @ 50 mls/hr IVPB DAILY@ 1999 [facility] Last Admin: 06/17/17 21:03 Dose: 50 mls/hr Montelukast Sodium (Singulair -) 10 mg PO HS [facility] Last Admin: 06/17/17 21:03 Dose: 10 mg Non-Formulary Medication (Alectinib Hcl [Alecensa]) 150 mg PO BID [facility] Last Admin: 06/18/17 10:26 Dose: 150 mg Ondansetron HCl (Zofran Odt -) 4 mg SL Q8H PRN PRN Reason: NAUSEA Polyethylene Glycol (Miralax (For Daily Use) -) 17 gm PO DAILY PRN Last Admin: 06/18/17 10:27 Dose: 17 gm Potassium Chloride (Potassium Chloride Oral Liquid) 20 meq PO DAILY [facility] Quetiapine Fumarate (Seroquel -) 100 mg PO HS [facility] Last Admin: 06/17/17 21:03 Dose: 100 mg Tramadol HCl (Ultram -) 50 mg PO Q6H PRN PRN Reason: BACK PAIN Last Admin: 06/16/17 10:29 Dose: 50 mg - Objective Vital Signs: Vital Signs Temperature 97.7 F 06/18/17 05:00 Pulse Rate 83 07/19/17 08:50 Respiratory Rate 20 06/18/17 05:00 Blood Pressure 116/75 06/18/17 05:00 O2 Sat by Pulse Oximetry (%) 92 L 06/18/17 08:50 Constitutional: Yes: Moderate Distress Cardiovascular: Yes: Pulse Irregular Respiratory: Yes: Diminished Gastrointestinal: Yes: Normal Bowel Sounds, Soft. No: Distention, Tenderness Edema: Yes Labs: CBC, BMP 06/18/17 06:30 06/18/17 06:30 INR, PTT INR 1.56 (0.82-1.09) H 06/15/17 21:15 Problem List - Problems (1) Atrial fibrillation Code(s): I48.91 - UNSPECIFIED ATRIAL FIBRILLATION Qualifiers: Qualified Code(s): I48.2 - Chronic atrial fibrillation (2) Lung cancer Code(s): C34.90 - MALIGNANT NEOPLASM OF UNSP PART OF UNSP BRONCHUS OR LUNG Qualifiers: Qualified Code(s): C34.12 - Malignant neoplasm of upper lobe, left bronchus or lung (3) Pneumonia Code(s): J18.9 - PNEUMONIA, UNSPECIFIED ORGANISM Qualifiers: Qualified Code(s): J18.9 - Pneumonia, unspecified organism (4) UTI (urinary tract infection) Code(s): N39.0 - URINARY TRACT INFECTION, SITE NOT SPECIFIED Qualifiers: Qualified Code(s): N39.0 - Urinary tract infection, site not specified Assessment/Plan PLAN Leucytosis trending down Blood cultures negative ,urine cultures noted ID eval noted urine antigens-- negative change NC to ventimask spoke with daughter about intubation - and she says she will speak with other daughter . She does not wish for intubation now I explained that most likely this may be the lung mass as the cause of respiratory distress on eliquis DVT prophylaxis-- Eliquis palliative care eval with regarding advance directives
[2017-06-18] MEDS: POTASSIUM CHLORIDE ORAL LIQUID 20 MEQ/15 ML PO SCH (11:57)
[2017-06-18] MEDS ORDERED: ALPRAZolam 0.25 MG TABLET PO PRN (11:58)
[2017-06-18] MEDS: methylPREDNISolone NA SUCC 40 MG/1 ML VIAL IVPB SCH ×2 (14:39→18:13)
[2017-06-18] MEDS: traMADol HCL 50 MG TABLET PO PRN (15:45)
--- NOTE | 2017-06-18 17:14 | PN ---
Teaching Attending Note Name of Resident: Neo Bill ATTENDING PHYSICIAN STATEMENT I saw and evaluated the patient. I reviewed the resident's note and discussed the case with the resident. I agree with the resident's findings and plan as documented. SUBJECTIVE: still some cough eating poorly OBJECTIVE: Vital Signs Period Temp Pulse Resp BP Sys/Ma Pulse Ox Last 24 Hr 97.6 F-98.2 F 72-99 20-20 108-120/58-82 92-95 cor-rrr lungs-decreased bs at bases, bibasilar crackles abd soft,nt ext no edema CBC, BMP 06/18/17 06:30 06/18/17 06:30 Microbiology 06/15/17 23:30 Urine - Urine Clean Catch Urine Culture - Final Klebsiella Pneumoniae - Esbl Proteus Mirabilis 06/17/17 13:35 Urine For Antigen Detection Legionella Antigen - Final 06/17/17 13:35 Urine For Antigen Detection Streptococcus pneumoniae Antigen (M - Final 06/15/17 21:15 Blood - Peripheral Venous Blood Culture - Preliminary NO GROWTH OBTAINED AFTER 48 HOURS, INCUBATION TO CONTINUE FOR 3 DAYS. 06/15/17 21:15 Blood - Peripheral Venous Blood Culture - Preliminary NO GROWTH OBTAINED AFTER 48 HOURS, INCUBATION TO CONTINUE FOR 3 DAYS. ASSESSMENT AND PLAN: pneumonia- improving wbc count, continue levaquin asymptomatic bacteriuria- contact isolation for ESBL klebsiella lung cancer
--- NOTE | 2017-06-18 18:14 | PN ---
Physical Exam: SUBJECTIVE: Patient seen and examined by me this PM - Worsening cough, SOB. Pt in mild distress when seen. Cough unchanged, not productive. Required venti mask for O2 support, now on NC again. - Also complaining of worsening R shoulder pain, likely refer pleuritic pain and mild chest congestion/pain. - Endorses poor sleep, PO intake. States that her abdomen feels "full". Endorses constipation. One episode of emesis yesterday afternoon w/ mild nausea. - Denies palpitations, GARCIA, dizziness, fever, chills. - Afebrile, WBC downtrending from 17 -> 10. Other updates: - Legionella ag neg - Thrombocytopenia improving - Blood cx's neg after 48 hours OBJECTIVE: Vital Signs Period Temp Pulse Resp BP Sys/Ma Pulse Ox Last 24 Hr 97.6 F-98.2 F 72-99 20-20 108-120/58-82 92-95 GENERAL: Awake, alert, and fully oriented, in mild distress. On NC. HEAD: Normal with no signs of trauma. EYES: sclera anicteric, conjunctiva clear. No lid lag. EARS, NOSE, THROAT: oropharynx clear without exudates. Moist mucous membranes. NECK: No lymphadenopathy, JVD, or masses. LUNGS: Now with rhonchi BL, most prominent in upper lung hook. Faint crackles in lower lung hook. Prominent inspiratory/expiratory wheeze. No accessory muscle use. HEART: Regular rate and rhythm, 2/6 systolic murmur RUSB, normal S1 and S2. No gallops or rubs. ABDOMEN: Soft, nontender, significantly distended. Suspected ascites w/ positive fluid wave. Normoactive bowel sounds, no guarding, no rebound, no masses. Splenomegaly noted. MUSCULOSKELETAL: No CVA tenderness. Right shoulder pain. UPPER EXTREMITIES: 2+ pulses, warm, well-perfused. No cyanosis. No clubbing. Cap refill <2 seconds. No peripheral edema. LOWER EXTREMITIES: 2+ pulses, warm, well-perfused. No calf tenderness. Bilateral LE edema, with erythema/cellulitis bilaterally from anterior dejesus, throughout feet. Diffuse vesicles on anterior aspect. SKIN: Warm, dry, normal turgor Laboratory Results - last 24 hr 06/18/17 06/18/17 06:30 06:30 WBC 10.7 H D RBC 3.28 L Hgb 10.7 Hct 31.1 L MCV 94.7 MCH 32.5 MCHC 34.4 RDW 17.1 H Plt Count 95 L MPV 9.7 Neutrophils % 76.2 Lymphocytes % 12.7 D Monocytes % 9.4 Eosinophils % 1.3 D Basophils % 0.4 Sodium 132 L Potassium 4.5 Chloride 94 L Carbon Dioxide 30 Anion Gap 8 BUN 30 H Creatinine 1.1 H Creat Clearance w eGFR 47.21 Random Glucose 100 D Calcium 8.8 Total Bilirubin 1.2 H AST 35 ALT 24 D Alkaline Phosphatase 118 H Total Protein 7.2 Albumin 2.8 L Microbiology 06/15/17 23:30 Urine Culture - Final Urine - Urine Clean Catch Klebsiella Pneumoniae - Esbl Proteus Mirabilis 06/17/17 13:35 Legionella Antigen - Final Urine For Antigen Detection Streptococcus pneumoniae Antigen (M - Final 06/15/17 21:15 Blood Culture - Preliminary Blood - Peripheral Venous NO GROWTH OBTAINED AFTER 48 HOURS, INCUBATION TO CONTINUE FOR 3 DAYS. 06/15/17 21:15 Blood Culture - Preliminary Blood - Peripheral Venous NO GROWTH OBTAINED AFTER 48 HOURS, INCUBATION TO CONTINUE FOR 3 DAYS. Active Medications Generic Name Dose Route Start Last Admin Trade Name Freq PRN Reason Stop Dose Admin Acetaminophen 650 mg 06/16/17 08:40 Tylenol - PO Q6H PRN FEVER OR PAIN Albuterol Sulfate 1 amp 06/16/17 08:37 06/18/17 12:06 Ventolin 0.083% Nebulizer Soln - NEB 1 amp Q4H PRN Administration SHORT OF BREATH/WHEEZING Alprazolam 0.25 mg 06/18/17 11:58 Xanax - PO Q6H PRN ANXIETY Apixaban 2.5 mg 06/16/17 10:00 06/18/17 10:26 Eliquis - PO 2.5 mg BID DES Administration Carvedilol 12.5 mg 06/16/17 10:00 06/18/17 10:26 Coreg - PO 12.5 mg DAILY DES Administration Collagenase 1 applic 06/17/17 16:00 06/18/17 10:27 Santyl - TP 1 applic DAILY DES Administration Furosemide 40 mg 06/16/17 10:00 06/18/17 10:26 Lasix - PO 40 mg DAILY DES Administration Levofloxacin 50 mls @ 50 mls/hr 06/16/17 20:00 06/17/17 21:03 Levaquin 250 Mg Premixed Ivpb - IVPB 50 mls/hr DAILY@2000 DES Administration Methylprednisolone Sodium Succinate 40 mg 06/18/17 14:30 06/18/17 14:39 Solu-Medrol - IVPB 40 mg Q8H-IV DES Administration Montelukast Sodium 10 mg 06/16/17 22:00 06/17/17 21:03 Singulair - PO 10 mg HS DES Administration Ondansetron HCl 4 mg 06/16/17 18:36 Zofran Odt - SL Q8H PRN NAUSEA Polyethylene Glycol 17 gm 06/17/17 18:00 06/18/17 10:27 Miralax (For Daily Use) - PO 17 gm DAILY PRN Administration Potassium Chloride 20 meq 06/18/17 10:00 06/18/17 11:57 Potassium Chloride Oral Liquid PO 20 meq DAILY DES Administration Quetiapine Fumarate 100 mg 06/16/17 22:00 06/17/17 21:03 Seroquel - PO 100 mg HS DES Administration Tramadol HCl 50 mg 06/16/17 08:36 06/16/17 10:29 Ultram - PO 50 mg Q6H PRN Administration BACK PAIN CXR: ASSESSMENT/PLAN: 86 year old woman with pmh of Lung Ca (Stage 4, receiving chemo tx for 2 years) , Aortic valve replacement, a-fib and dementia, who presented to the ED two days ago with fatigue during ambulation in the setting of productive cough and fever of a few days duration. Pt's clinical condition has worsened overnight, with increased SOB and cough, however remains afebrile w/ downtrending white count. Required increased O2 support w/ venti mask. Plan to continue current treatment on levaquin w/ continual monitoring of respiratory status. Plan #Pneumonia - Continue levaquin 250 mg daily, adjusted for renal insufficiency. - Trend fever, white count - daily CBCs to monitor thrombocytopenia, WBC count - f/u blood cx's - Sputum cx if expectorating #Possible UTI - Likely asymptomatic bacteriuria - Monitor for urinary symptoms. Not currently symptomatic - Continue Abx coverage with current course of levaquin #Venous stasis (lower extremity) - F/u outpatient wound care - daily dressing changes - Santyl #Lung Neoplasm - NSCLC per note. Currently on oral TKI regimen. Monitor for possible side effects - Alk phos elevation likely side effect of chemo drug #Abdominal distension - consider KUB for constipation/distension - U/S to check for ascites Neo Bill MD, PGY1 Discussed plan with attending, Dr. Thomas Dispo: We will continue to follow the patient. Thank you for this consultative opportunity. Visit type - Emergency Visit Emergency Visit: No - New Patient This patient is new to me today: No - Critical Care Critical Care patient: No
[2017-06-18] MEDS: LEVOFLOXACIN 250 MG IVPB 50 ML IVPB SCH (20:28)
[2017-06-18] MEDS: QUEtiapine FUMARATE 100 MG TABLET (FP) PO SCH (21:18)
[2017-06-18] MEDS: MONTELUKAST NA 10 MG TABLET PO SCH (21:18)
[2017-06-19] MEDS: methylPREDNISolone NA SUCC 40 MG/1 ML VIAL IVPB SCH ×3 (01:54→22:38)
--- NOTE | 2017-06-19 07:29 | PN ---
Physical Exam: SUBJECTIVE: Patient to be seen by me this AM - Pt status much improved on steroids. Significant improvement in breathing, SOB. Doing much better. No major events overnight - urine cx + for klebsiella - Thrombocytopenia improving. No WBC elevation. No left shift. - Blood cx's neg. legionella ag neg. OBJECTIVE: Vital Signs Period Temp Pulse Resp BP Sys/Ma Pulse Ox Last 24 Hr 97.6 F-98.2 F 72-99 20-20 118-130/69-84 92-94 GENERAL: Awake, alert, and fully oriented, in no acute distress. On NC. HEAD: Normal with no signs of trauma. EYES: sclera anicteric, conjunctiva clear. No lid lag. EARS, NOSE, THROAT: oropharynx clear without exudates. Moist mucous membranes. NECK: No lymphadenopathy, JVD, or masses. LUNGS: faint rhonchi, most prominent in upper lung hook. Faint crackles in lower lung hook. Trace wheeze in upper airway. No accessory muscle use. HEART: Regular rate and rhythm, 2/6 systolic murmur RUSB, normal S1 and S2. No gallops or rubs. ABDOMEN: Soft, nontender, significantly distended. Possible ascites. Normoactive bowel sounds, no guarding, no rebound, no masses. Splenomegaly noted. MUSCULOSKELETAL: No CVA tenderness. Right shoulder pain. UPPER EXTREMITIES: 2+ pulses, warm, well-perfused. No cyanosis. No clubbing. Cap refill <2 seconds. No peripheral edema. LOWER EXTREMITIES: 2+ pulses, warm, well-perfused. No calf tenderness. Bilateral LE edema, with erythema/cellulitis bilaterally from anterior dejesus, throughout feet. Diffuse vesicles on anterior aspect. SKIN: Warm, dry, normal turgor Laboratory Results - last 24 hr CBC, BMP 06/18/17 06:30 06/18/17 06:30 06/18/17 06/18/17 06:30 06:30 WBC 10.7 H D RBC 3.28 L Hgb 10.7 Hct 31.1 L MCV 94.7 MCH 32.5 MCHC 34.4 RDW 17.1 H Plt Count 95 L MPV 9.7 Neutrophils % 76.2 Lymphocytes % 12.7 D Monocytes % 9.4 Eosinophils % 1.3 D Basophils % 0.4 Sodium 132 L Potassium 4.5 Chloride 94 L Carbon Dioxide 30 Anion Gap 8 BUN 30 H Creatinine 1.1 H Creat Clearance w eGFR 47.21 Random Glucose 100 D Calcium 8.8 Total Bilirubin 1.2 H AST 35 ALT 24 D Alkaline Phosphatase 118 H Total Protein 7.2 Albumin 2.8 L Microbiology 06/15/17 21:15 Blood - Peripheral Venous Blood Culture - Preliminary NO GROWTH OBTAINED AFTER 72 HOURS, INCUBATION TO CONTINUE FOR 2 DAYS. 06/15/17 21:15 Blood - Peripheral Venous Blood Culture - Preliminary NO GROWTH OBTAINED AFTER 72 HOURS, INCUBATION TO CONTINUE FOR 2 DAYS. 06/15/17 23:30 Urine - Urine Clean Catch Urine Culture - Final Klebsiella Pneumoniae - Esbl Proteus Mirabilis 06/17/17 13:35 Urine For Antigen Detection Legionella Antigen - Final 06/17/17 13:35 Urine For Antigen Detection Streptococcus pneumoniae Antigen (M - Final Active Medications Generic Name Dose Route Start Last Admin Trade Name Freq PRN Reason Stop Dose Admin Acetaminophen 650 mg 06/16/17 08:40 Tylenol - PO Q6H PRN FEVER OR PAIN Albuterol Sulfate 1 amp 06/16/17 08:37 06/18/17 12:06 Ventolin 0.083% Nebulizer Soln - NEB 1 amp Q4H PRN Administration SHORT OF BREATH/WHEEZING Alprazolam 0.25 mg 06/18/17 11:58 06/18/17 21:18 Xanax - PO 0.25 mg Q6H PRN Administration ANXIETY Apixaban 2.5 mg 06/16/17 10:00 06/18/17 21:17 Eliquis - PO 2.5 mg BID DES Administration Carvedilol 12.5 mg 06/16/17 10:00 06/18/17 10:26 Coreg - PO 12.5 mg DAILY DES Administration Collagenase 1 applic 06/17/17 16:00 06/18/17 10:27 Santyl - TP 1 applic DAILY DES Administration Furosemide 40 mg 06/16/17 10:00 06/18/17 10:26 Lasix - PO 40 mg DAILY DES Administration Levofloxacin 50 mls @ 50 mls/hr 06/16/17 20:00 06/18/17 20:28 Levaquin 250 Mg Premixed Ivpb - IVPB 50 mls/hr DAILY@2000 DES Administration Methylprednisolone Sodium Succinate 40 mg 06/18/17 14:30 06/19/17 01:54 Solu-Medrol - IVPB 40 mg Q8H-IV DES Administration Montelukast Sodium 10 mg 06/16/17 22:00 06/18/17 21:18 Singulair - PO 10 mg HS DES Administration Ondansetron HCl 4 mg 06/16/17 18:36 Zofran Odt - SL Q8H PRN NAUSEA Polyethylene Glycol 17 gm 06/17/17 18:00 06/18/17 10:27 Miralax (For Daily Use) - PO 17 gm DAILY PRN Administration Potassium Chloride 20 meq 06/18/17 10:00 06/18/17 11:57 Potassium Chloride Oral Liquid PO 20 meq DAILY DES Administration Quetiapine Fumarate 100 mg 06/16/17 22:00 06/18/17 21:18 Seroquel - PO 100 mg HS DES Administration Tramadol HCl 50 mg 06/16/17 08:36 06/18/17 15:45 Ultram - PO 50 mg Q6H PRN Administration BACK PAIN ASSESSMENT/PLAN: 86 year old woman with pmh of Lung Ca (Stage 4, receiving chemo tx for 2 years) , Aortic valve replacement, a-fib and dementia, who presented to the ED two days ago with fatigue during ambulation in the setting of productive cough and fever of a few days duration. Pt's respiratory status much improved since starting steroids. Plan to continue current treatment on levaquin w/ continual monitoring of respiratory [id number]. Plan #Pneumonia - Continue levaquin 250 mg daily, adjusted for renal insufficiency. - Trend fever, white count - daily CBCs to monitor thrombocytopenia, WBC count - f/u blood cx's - Sputum cx if expectorating #Possible UTI - Urine cx pos for Klebsiella - Monitor for urinary symptoms. Not currently symptomatic - Continue Abx coverage with current course of levaquin #Venous stasis (lower extremity) - F/u outpatient wound care - daily dressing changes - Santyl #Lung Neoplasm - NSCLC per note. Currently on oral TKI regimen. Monitor for possible side effects - Alk phos elevation likely side effect of chemo drug #Abdominal distension - consider KUB for constipation/distension - U/S to check for ascites Neo Bill MD, PGY1 Plan discussed w/ Dr. Thomas Visit type - Emergency Visit Emergency Visit: No - New Patient This patient is new to me today: No - Critical Care Critical Care patient: No
--- NOTE | 2017-06-19 09:59 | PN ---
Progress Note, Physician Chief Complaint: comfortable sleepy received Xanax last night no SOB states she feels better compared to yesterday - Current Medication List Current Medications: Active Medications Acetaminophen (Tylenol -) 650 mg PO Q6H PRN PRN Reason: FEVER OR PAIN Albuterol Sulfate (Ventolin 0.083% Nebulizer Soln -) 1 amp NEB Q4H PRN PRN Reason: SHORT OF BREATH/WHEEZING Last Admin: 06/18/17 12:06 Dose: 1 amp Alprazolam (Xanax -) 0.25 mg PO Q6H PRN PRN Reason: ANXIETY Last Admin: 06/18/17 21:18 Dose: 0.25 mg Apixaban (Eliquis -) 2.5 mg PO BID [facility] Last Admin: 06/18/17 21:17 Dose: 2.5 mg Carvedilol (Coreg -) 12.5 mg PO DAILY [facility] Last Admin: 06/18/17 10:26 Dose: 12.5 mg Collagenase (Santyl -) 1 applic TP DAILY [facility] Last Admin: 06/18/17 10:27 Dose: 1 applic Furosemide (Lasix -) 40 mg PO DAILY [facility] Last Admin: 06/18/17 10:26 Dose: 40 mg Levofloxacin (Levaquin 250 Mg Premixed Ivpb -) 50 mls @ 50 mls/hr IVPB DAILY@ 1999 [facility] Last Admin: 06/18/17 20:28 Dose: 50 mls/hr Methylprednisolone Sodium Succinate (Solu-Medrol -) 40 mg IVPB Q8H-IV [facility] Last Admin: 06/19/17 01:54 Dose: 40 mg Montelukast Sodium (Singulair -) 10 mg PO [facility] Last Admin: 06/18/17 21:18 Dose: 10 mg Ondansetron HCl (Zofran Odt -) 4 mg SL Q8H PRN PRN Reason: NAUSEA Polyethylene Glycol (Miralax (For Daily Use) -) 17 gm PO DAILY PRN Last Admin: 06/18/17 10:27 Dose: 17 gm Potassium Chloride (Potassium Chloride Oral Liquid) 20 meq PO DAILY [facility] Last Admin: 06/18/17 11:57 Dose: 20 meq Quetiapine Fumarate (Seroquel -) 100 mg PO [facility] Last Admin: 06/18/17 21:18 Dose: 100 mg Tramadol HCl (Ultram -) 50 mg PO Q6H PRN PRN Reason: BACK PAIN Last Admin: 06/18/17 15:45 Dose: 50 mg - Objective Vital Signs: Vital Signs Temperature 97.6 F 06/19/17 06:00 Pulse Rate 77 06/19/17 06:00 Respiratory Rate 20 06/19/17 06:00 Blood Pressure 118/69 06/19/17 06:00 O2 Sat by Pulse Oximetry (%) 94 L 06/18/17 21:00 Constitutional: Yes: No Distress, Calm Cardiovascular: Yes: Pulse Irregular Respiratory: Yes: Diminished Gastrointestinal: Yes: Normal Bowel Sounds, Soft. No: Distention, Tenderness Edema: Yes Edema: LLE: Trace, RLE: Trace Psychiatric: Yes: Alert Labs: CBC, BMP 06/18/17 06:30 06/18/17 06:30 INR, PTT INR 1.56 (0.82-1.09) H 06/15/17 21:15 Problem List - Problems (1) Atrial fibrillation Code(s): I48.91 - UNSPECIFIED ATRIAL FIBRILLATION Qualifiers: Qualified Code(s): I48.2 - Chronic atrial fibrillation (2) Lung cancer Code(s): C34.90 - MALIGNANT NEOPLASM OF UNSP PART OF UNSP BRONCHUS OR LUNG Qualifiers: Qualified Code(s): C34.12 - Malignant neoplasm of upper lobe, left bronchus or lung (3) Pneumonia Code(s): J18.9 - PNEUMONIA, UNSPECIFIED ORGANISM Qualifiers: Qualified Code(s): J18.9 - Pneumonia, unspecified organism (4) UTI (urinary tract infection) Code(s): N39.0 - URINARY TRACT INFECTION, SITE NOT SPECIFIED Qualifiers: Qualified Code(s): N39.0 - Urinary tract infection, site not specified Assessment/Plan Spoke with Oncologist-- DR Gallardo yesterday-- advised to stop her chemo med for now. He felt that maybe she may have some component of pneumonitis Xanax as needed comfort care Spoke with daughter in detail taper steroids Pt is DNR/DNI
[2017-06-19] MEDS ORDERED: PT OWN MED DRAWER 7, Y5N ONE ×2 (10:29→21:46)
[2017-06-19] MEDS: CARVEDILOL 12.5 MG TABLET (FP) PO SCH (10:36)
[2017-06-19] MEDS: APIXABAN 2.5 MG TABLET PO SCH ×2 (10:37→21:49)
[2017-06-19] MEDS: FUROSEMIDE 40 MG TABLET (FP) PO SCH (10:37)
[2017-06-19] MEDS: POTASSIUM CHLORIDE ORAL LIQUID 20 MEQ/15 ML PO SCH (10:37)
[2017-06-19] MEDS: ALBUTEROL SO4 0.083% IH SOL 2.5 MG/3 ML VIAL.NEB. NEB PRN (11:50)
[2017-06-19] MEDS: COLLAGENASE CLOSTRIDIUM HIST. 30 GRAMS TUBE TP SCH (15:25)
--- NOTE | 2017-06-19 17:01 | PN ---
Teaching Attending Note Name of Resident: Neo Bill ATTENDING PHYSICIAN STATEMENT I saw and evaluated the patient. I reviewed the resident's note and discussed the case with the resident. I agree with the resident's findings and plan as documented. SUBJECTIVE: smiling, ate today, had a BM on nasal canulla OBJECTIVE: Vital Signs Period Temp Pulse Resp BP Sys/Ma Pulse Ox Last 24 Hr 97.6 F-98.2 F 76-86 20-20 118-130/69-84 94-94 cor-rrr lungs bibasilar crackles abd soft,nt ext no edema CBC, BMP 06/18/17 06:30 06/18/17 06:30 Microbiology 06/15/17 21:15 Blood - Peripheral Venous Blood Culture - Preliminary NO GROWTH OBTAINED AFTER 72 HOURS, INCUBATION TO CONTINUE FOR 2 DAYS. 06/15/17 21:15 Blood - Peripheral Venous Blood Culture - Preliminary NO GROWTH OBTAINED AFTER 72 HOURS, INCUBATION TO CONTINUE FOR 2 DAYS. 06/15/17 23:30 Urine - Urine Clean Catch Urine Culture - Final Klebsiella Pneumoniae - Esbl Proteus Mirabilis 06/17/17 13:35 Urine For Antigen Detection Legionella Antigen - Final 06/17/17 13:35 Urine For Antigen Detection Streptococcus pneumoniae Antigen (M - Final ASSESSMENT AND PLAN: pneumonia lung cancer asymptomatic bacteriuria- 2 organisms and lack of symptoms suggest contaminants continue contact isolation continue levaquin improved today d/w daughter at bedside add incentive spirometry
[2017-06-19] MEDS: LEVOFLOXACIN 250 MG IVPB 50 ML IVPB SCH (20:51)
[2017-06-19] MEDS: MONTELUKAST NA 10 MG TABLET PO SCH (21:50)
[2017-06-19] MEDS: QUEtiapine FUMARATE 100 MG TABLET (FP) PO SCH (21:50)
--- NOTE | 2017-06-20 07:38 | PN ---
Physical Exam: SUBJECTIVE: Patient to be seen by me this AM - on levaquin 250 for pna and uti coverage - afebrile, mildly tachycardic on AM vitals. WBC increased from 10.7 -> 11.8. On steroids. - breathing much improved on steroid. Satting 95% on NC 4L on 06/19 PM vitals. Continuing cough w/ decreased expectorates. - Denies SOB, N/V, Abdominal pain, LE edema, dysuria, diarrhea. Endorses a new ecchymoses on R thigh, due to "scratching". Ecchymoses appreciated, not erythematous, with mild peripheral edema. Patient endorses no pain or pruritus at site. - No other major events overnight. Slept well. Mild PO intake. Other updates: - Leg, pneumo urine ag neg - UC + for klebsiella. Blood cx's neg after 96h - WBC slightly elevated to 11.8. OBJECTIVE: Vital Signs Period Temp Pulse Resp BP Sys/Ma Pulse Ox Last 24 Hr 97.8 F-98.5 F 76-114 20-20 113-132/68-83 94-95 GENERAL: Awake, alert, and fully oriented, in no acute distress. On NC. HEAD: Normal with no signs of trauma. EYES: sclera anicteric, conjunctiva clear. No lid lag. EARS, NOSE, THROAT: oropharynx clear without exudates. Moist mucous membranes. NECK: No lymphadenopathy, JVD, or masses. LUNGS: Faint crackles in lower lung hook, L>R. Diffuse inspiratory wheeze in all lung hook. No accessory muscle use. HEART: Regular rate and rhythm, 2/6 systolic murmur RUSB, normal S1. Prominent S2. No gallops or rubs. ABDOMEN: Soft, nontender, significantly distended. Possible ascites. Normoactive bowel sounds, no guarding, no rebound, no masses. Splenomegaly noted. MUSCULOSKELETAL: No CVA tenderness. Right shoulder pain improving. Not tender to palpation. UPPER EXTREMITIES: 2+ pulses, warm, well-perfused. No cyanosis. No clubbing. Cap refill <2 seconds. No peripheral edema. LOWER EXTREMITIES: 2+ pulses, warm, well-perfused. No calf tenderness. Bilateral LE edema, with suspected venous stasis/cellulitis bilaterally from anterior dejesus to feet, throughout feet. Vesicles on anterior aspect, primarily on L leg. Feet wrapped in dressings. SKIN: Warm, dry, normal turgor where otherwise not noted Labs: CBC, BMP 06/20/17 06:15 06/20/17 06:45 Laboratory Results - last 24 hr 06/20/17 06/20/17 06:15 06:45 WBC 11.8 H RBC 3.46 L Hgb 11.1 Hct 32.8 MCV 94.8 MCH 32.1 MCHC 33.9 RDW 16.8 H Plt Count 125 L D MPV 9.2 Neutrophils % 84.8 H Lymphocytes % 7.7 L D Monocytes % 7.4 Eosinophils % 0.0 D Basophils % 0.1 Sodium 138 Potassium 4.8 Chloride 100 Carbon Dioxide 31 Anion Gap 7 L BUN 33 H Creatinine 0.9 Random Glucose 141 H D Calcium 9.1 Microbiology 06/15/17 21:15 Blood - Peripheral Venous Blood Culture - Preliminary NO GROWTH OBTAINED AFTER 96 HOURS, INCUBATION TO CONTINUE FOR 1 DAYS. 06/15/17 21:15 Blood - Peripheral Venous Blood Culture - Preliminary NO GROWTH OBTAINED AFTER 96 HOURS, INCUBATION TO CONTINUE FOR 1 DAYS. 06/15/17 23:30 Urine - Urine Clean Catch Urine Culture - Final Klebsiella Pneumoniae - Esbl Proteus Mirabilis 06/17/17 13:35 Urine For Antigen Detection Legionella Antigen - Final 06/17/17 13:35 Urine For Antigen Detection Streptococcus pneumoniae Antigen (M - Final Active Medications Generic Name Dose Route Start Last Admin Trade Name Freq PRN Reason Stop Dose Admin Acetaminophen 650 mg 06/16/17 08:40 Tylenol - PO Q6H PRN FEVER OR PAIN Albuterol Sulfate 1 amp 06/16/17 08:37 06/19/17 11:50 Ventolin 0.083% Nebulizer Soln - NEB 1 amp Q4H PRN Administration SHORT OF BREATH/WHEEZING Alprazolam 0.25 mg 06/18/17 11:58 06/18/17 21:18 Xanax - PO 0.25 mg Q6H PRN Administration ANXIETY Apixaban 2.5 mg 06/16/17 10:00 06/19/17 21:49 Eliquis - PO 2.5 mg BID DES Administration Carvedilol 12.5 mg 06/16/17 10:00 06/19/17 10:36 Coreg - PO 12.5 mg DAILY DES Administration Collagenase 1 applic 06/17/17 16:00 06/19/17 15:25 Santyl - TP 1 applic DAILY DES Administration Furosemide 40 mg 06/16/17 10:00 06/19/17 10:37 Lasix - PO 40 mg DAILY DES Administration Levofloxacin 50 mls @ 50 mls/hr 06/16/17 20:00 06/19/17 20:51 Levaquin 250 Mg Premixed Ivpb - IVPB 50 mls/hr DAILY@2000 DES Administration Methylprednisolone Sodium Succinate 40 mg 06/19/17 11:00 06/19/17 22:38 Solu-Medrol - IVPB 40 mg Q12H DES Administration Montelukast Sodium 10 mg 06/16/17 22:00 06/19/17 21:50 Singulair - PO 10 mg HS DES Administration Ondansetron HCl 4 mg 06/16/17 18:36 Zofran Odt - SL Q8H PRN NAUSEA Polyethylene Glycol 17 gm 06/17/17 18:00 06/18/17 10:27 Miralax (For Daily Use) - PO 17 gm DAILY PRN Administration Potassium Chloride 20 meq 06/18/17 10:00 06/19/17 10:37 Potassium Chloride Oral Liquid PO 20 meq DAILY DES Administration Quetiapine Fumarate 100 mg 06/16/17 22:00 06/19/17 21:50 Seroquel - PO 100 mg HS DES Administration Tramadol HCl 50 mg 06/16/17 08:36 06/18/17 15:45 Ultram - PO 50 mg Q6H PRN Administration BACK PAIN ASSESSMENT/PLAN: Assessment: 86 year old woman with pmh of Lung Ca (Stage 4, receiving chemo tx for 2 years), Aortic valve replacement, a-fib and dementia, who presented to the ED two days ago with fatigue during ambulation in the setting of productive cough and fever of a few days duration. Pt's respiratory status continues to improve since starting steroids and is doing well. Plan to finish current treatment on levaquin w/ continual monitoring of respiratory status for decompensation. Plan: #Pneumonia - Continue levaquin 250 mg daily, adjusted for renal insufficiency. - Trend fever, white count - daily CBCs to monitor thrombocytopenia, WBC count - Blood cx's neg after 96 hours - Sputum cx if expectorating #Asymptomatic bacteruria. - Urine cx pos for multiple organism. Likely asymptomatic bacteruria. - Monitor for urinary symptoms. Not currently symptomatic #Venous stasis (lower extremity) - F/u outpatient wound care - daily dressing changes - Santyl #Lung Neoplasm - NSCLC per note. Currently on oral TKI regimen. Monitor for possible side effects - Alk phos elevation likely side effect of chemo drug #Abdominal distension - consider KUB for constipation/distension - U/S to check for ascites Management from ID team no longer clinical indicated. Thank you for this consultative opportunity Neo Bill MD, PGY1 Plan discussed with attending, Dr. Thomas Visit type - Emergency Visit Emergency Visit: No - New Patient This patient is new to me today: No - Critical Care Critical Care patient: No
[2017-06-20] MEDS: methylPREDNISolone NA SUCC 40 MG/1 ML VIAL IVPB SCH ×2 (08:12→10:30)
[2017-06-20 08:20] LABS: ANION GAP 7 (8-16); CALCIUM 9.1 mg/dL (8.5-10.1); CO2 31 mmol/L (21-32); CREATININE 0.9 mg/dL (0.55-1.02); GLUCOSE,RANDOM 141 mg/dL (74-106)
[2017-06-20 08:20] LABS: BASOPHIL 0.1 % (0-2.0); MCH 32.1 pg (25.7-33.7); MCHC 33.9 g/dl (32.0-36.0); MEAN CELL VOLUME 94.8 fl (80-96); MEAN PLT VOLUME 9.2 fl (7.5-11.1); NEUTROPHILS 84.8 % (42.8-82.8); PLATELET COUNT 125 K/MM3 (134-434); RDW 16.8 % (11.6-15.6); WHITE BLOOD COUNT 11.8 K/mm3 (4.0-10.0)
[2017-06-20] MEDS: ALBUTEROL SO4 0.083% IH SOL 2.5 MG/3 ML VIAL.NEB. NEB PRN (10:20)
[2017-06-20] MEDS: POTASSIUM CHLORIDE ORAL LIQUID 20 MEQ/15 ML PO SCH (10:30)
[2017-06-20] MEDS: CARVEDILOL 12.5 MG TABLET (FP) PO SCH (10:30)
[2017-06-20] MEDS: COLLAGENASE CLOSTRIDIUM HIST. 30 GRAMS TUBE TP SCH (10:30)
[2017-06-20] MEDS: FUROSEMIDE 40 MG TABLET (FP) PO SCH (10:30)
[2017-06-20] MEDS: APIXABAN 2.5 MG TABLET PO SCH ×2 (10:37→21:35)
--- NOTE | 2017-06-20 10:47 | PN ---
Progress Note (short form) - Note Progress Note: patient seen and examined. Looks much better Feels well chart reviewed No complaints today Denies chest pain Breathing is stable Vital Signs Temp 98.3 F 06/20/17 04:00 Pulse 114 H 06/20/17 04:00 Resp 20 06/20/17 04:00 BP 113/68 06/20/17 04:00 Pulse Ox 95 06/19/17 21:00 Intake & Output 06/19/17 06/19/17 06/20/17 11:59 23:59 11:59 Intake Total 240 550 50 Balance 240 550 50 Intake: IVPB 100 Oral 240 450 50 Other: Voiding Method Toilet Toilet # Unmeasured Voids Void 1 1 1 Bowel Movement No Active Medications Acetaminophen (Tylenol -) 650 mg PO Q6H PRN PRN Reason: FEVER OR PAIN Albuterol Sulfate (Ventolin 0.083% Nebulizer Soln -) 1 amp NEB Q4H PRN PRN Reason: SHORT OF BREATH/WHEEZING Last Admin: 06/19/17 11:50 Dose: 1 amp Alprazolam (Xanax -) 0.25 mg PO Q6H PRN PRN Reason: ANXIETY Last Admin: 06/18/17 21:18 Dose: 0.25 mg Apixaban (Eliquis -) 2.5 mg PO BID [facility] Last Admin: 06/20/17 10:37 Dose: 2.5 mg Carvedilol (Coreg -) 12.5 mg PO DAILY [facility] Last Admin: 06/20/17 10:30 Dose: 12.5 mg Collagenase (Santyl -) 1 applic TP DAILY [facility] Last Admin: 06/20/17 10:30 Dose: 1 applic Furosemide (Lasix -) 40 mg PO DAILY [facility] Last Admin: 06/20/17 10:30 Dose: 40 mg Levofloxacin (Levaquin 250 Mg Premixed Ivpb -) 50 mls @ 50 mls/hr IVPB DAILY@ 1999 [facility] Last Admin: 06/19/17 20:51 Dose: 50 mls/hr Methylprednisolone Sodium Succinate (Solu-Medrol -) 40 mg IVPB Q12H [facility] Last Admin: 06/20/17 10:30 Dose: 40 mg Montelukast Sodium (Singulair -) 10 mg PO HS [facility] Last Admin: 06/19/17 21:50 Dose: 10 mg Ondansetron HCl (Zofran Odt -) 4 mg SL Q8H PRN PRN Reason: NAUSEA Polyethylene Glycol (Miralax (For Daily Use) -) 17 gm PO DAILY PRN Last Admin: 06/18/17 10:27 Dose: 17 gm Potassium Chloride (Potassium Chloride Oral Liquid) 20 meq PO DAILY [facility] Last Admin: 06/20/17 10:30 Dose: 20 meq Quetiapine Fumarate (Seroquel -) 100 mg PO HS [facility] Last Admin: 06/19/17 21:50 Dose: 100 mg Tramadol HCl (Ultram -) 50 mg PO Q6H PRN PRN Reason: BACK PAIN Last Admin: 06/18/17 15:45 Dose: 50 mg CBC, BMP 06/20/17 06:15 06/20/17 06:45 Physical Examination Constitutional: Yes: No Distress, Calm Eyes: Yes: Conjunctiva Clear Neck: Yes: Supple Cardiovascular: Yes: Pulse Irregular. No: Regular Rate and Rhythm Respiratory: Yes: much improved air entry--- slightly diminished at bases Gastrointestinal: Yes: Normal Bowel Sounds, Soft Extremities: Yes: Erythema (both ankles) Edema: No Peripheral Pulses WNL: Yes Neurological: Yes: Alert Psychiatric: Yes: Alert Assessment and plan patient overall much better Continue present care Antibiotics Taper steroids Will discuss with ID Should be able to discharge by tomorrow Patient to follow with our medical team after discharge Will follow Problem List - Problems (1) Fever Code(s): R50.9 - FEVER, UNSPECIFIED Qualifiers: Qualified Code(s): R50.81 - Fever presenting with conditions classified elsewhere (2) Pneumonia Code(s): J18.9 - PNEUMONIA, UNSPECIFIED ORGANISM Qualifiers: Qualified Code(s): J18.9 - Pneumonia, unspecified organism (3) UTI (urinary tract infection) with pyuria Code(s): N39.0 - URINARY TRACT INFECTION, SITE NOT SPECIFIED (4) Atrial fibrillation Code(s): I48.91 - UNSPECIFIED ATRIAL FIBRILLATION Qualifiers: Qualified Code(s): I48.2 - Chronic atrial fibrillation (5) Dementia Code(s): F03.90 - UNSPECIFIED DEMENTIA WITHOUT BEHAVIORAL DISTURBANCE Qualifiers: Qualified Code(s): F03.90 - Unspecified dementia without behavioral disturbance (6) H/O aortic valve replacement Code(s): Z95.2 - PRESENCE OF PROSTHETIC HEART VALVE (7) Lung cancer Code(s): C34.90 - MALIGNANT NEOPLASM OF UNSP PART OF UNSP BRONCHUS OR LUNG Qualifiers: Qualified Code(s): C34.12 - Malignant neoplasm of upper lobe, left bronchus or lung (8) HTN (hypertension) Code(s): I10 - ESSENTIAL (PRIMARY) HYPERTENSION Qualifiers: Qualified Code(s): I10 - Essential (primary) hypertension
--- NOTE | 2017-06-20 12:47 | PN ---
Teaching Attending Note Name of Resident: Neo Bill ATTENDING PHYSICIAN STATEMENT I saw and evaluated the patient. I reviewed the resident's note and discussed the case with the resident. I agree with the resident's findings and plan as documented. SUBJECTIVE: oob in chair eating lunch feeling well OBJECTIVE: Vital Signs Period Temp Pulse Resp BP Sys/Ma Pulse Ox Last 24 Hr 98.2 F-98.5 F 77-114 20-20 113-132/68-83 95-98 cor-rrr lungs decreased bs at bases abd soft,nt ext +edema CBC, BMP 06/20/17 06:15 06/20/17 06:45 ASSESSMENT AND PLAN: pneumonia- improved lung cancer asymptomatic bacteriuria penicillin allergy (tolerates cephalosporins) doing well complete 7 days levaquin please call back if needed
[2017-06-20] MEDS ORDERED: PT OWN MED DRAWER 7, Y5N ONE (21:08)
[2017-06-20] MEDS: MONTELUKAST NA 10 MG TABLET PO SCH (21:35)
[2017-06-20] MEDS: LEVOFLOXACIN 250 MG IVPB 50 ML IVPB SCH (21:35)
[2017-06-20] MEDS: QUEtiapine FUMARATE 100 MG TABLET (FP) PO SCH (21:35)
[2017-06-21 06:38] VITALS: BP 124/74; PULSE 86; TEMP 97.9
[2017-06-21 08:05] LABS: MCH 31.9 pg (25.7-33.7); MCHC 33.8 g/dl (32.0-36.0); MEAN CELL VOLUME 94.3 fl (80-96); MEAN PLT VOLUME 9.1 fl (7.5-11.1); PLATELET COUNT 138 K/MM3 (134-434); RDW 16.7 % (11.6-15.6); WHITE BLOOD COUNT 11.8 K/mm3 (4.0-10.0)
[2017-06-21 08:27] LABS: ALBUMIN 2.7 g/dl (3.4-5.0); ANION GAP 5 (8-16); CALCIUM 8.8 mg/dL (8.5-10.1); CO2 36 mmol/L (21-32); GLUCOSE,RANDOM 122 mg/dL (74-106); SGOT/AST 21 U/L (15-37)
[2017-06-21 08:29] LABS: ALK PHOS 105 U/L (45-117); BILIRUBIN,TOTAL 0.6 mg/dL (0.2-1.0); CREATININE 0.8 mg/dL (0.55-1.02); SGPT/ALT 24 U/L (12-78); TOT PROT 7.3 g/dl (6.4-8.2)
--- NOTE | 2017-06-21 09:16 | DS ---
Physical Examination Vital Signs: Vital Signs Temperature 97.9 F 06/21/17 06:00 Pulse Rate 86 06/21/17 06:00 Respiratory Rate 20 06/21/17 06:00 Blood Pressure 124/74 06/21/17 06:00 O2 Sat by Pulse Oximetry (%) 95 06/20/17 21:00 Constitutional: Yes: No Distress, Calm Cardiovascular: Yes: Pulse Irregular Respiratory: Yes: Diminished, Rhonchi (decreased) Gastrointestinal: Yes: Normal Bowel Sounds, Soft. No: Distention, Tenderness Edema: No Labs: CBC, BMP 06/21/17 06:00 06/21/17 06:00 Discharge Summary Reason For Visit: UTI, SIRS, DEMENTIA, AFIB,LUNG MASS PNEUMONIA Current Active Problems Atrial fibrillation (Acute) Dementia (Acute) Fever (Acute) H/O aortic valve replacement (Acute) Lung cancer (Acute) Lung mass (Acute) Pneumonia (Acute) Pneumonitis (Acute) Shingles (Acute) Systemic inflammatory response syndrome (SIRS) (Acute) UTI (urinary tract infection) (Acute) UTI (urinary tract infection) with pyuria (Acute) Hospital Course: Admitted for pneumonia- right lung, UTI-- ESBL. Seen by ID-- on Levaquin. We started Solumedrol as well O2 sat better Breathin better CT chest done here shows left lung hilar mass Reviewed her previous Chest CT done in [facility] on 05/12/17-- has a perihilar mass. It appears that theres a mild worsening of left lung mass, and appearance of new right lung nodule. I spoke with her Oncologist during her admission and he advised to hold off chemo for now Pt is better clinically Stable for dc home on home O2, VNS spoke with Mary Christopher today about plan as Mary Christopher is not available today because she is in latter-day. Xanax prescribed for anxiety, HCS noted Pt is DNR/DNI detention prognosis is poor considering her cancer history Will eventually need hospice care and family aware of that DC home on PO Levaquin and tapering Prednisone Follow up with Oncologist Time spent on preparing dc -- 30 min Condition: Guarded - Instructions Referrals: Binh Garcia MD [Primary Care Provider] - Disposition: HOME - Home Medications Comprehensive Discharge Medication List: Ambulatory Orders Alectinib HCl [Alecensa] 150 mg PO BID 03/26/17 Apixaban [Eliquis -] 2.5 mg PO BID 03/26/17 Carvedilol [Coreg -] 12.5 mg PO DAILY 03/26/17 Furosemide [Lasix -] 40 mg PO DAILY 03/26/17 Montelukast Na [Singulair -] 10 mg PO HS 03/26/17 Potassium Chloride [K-Tab ER] 20 meq PO DAILY 03/26/17 Quetiapine Fumarate [Seroquel] 100 mg PO HS 03/26/17 Tramadol HCl [Ultram -] 50 mg PO Q6H PRN #30 tablet MDD 4 03/29/17 Alprazolam [Xanax] 0.25 mg PO Q8H PRN #20 tablet MDD 3 06/20/17 Levofloxacin [Levaquin -] 250 mg PO DAILY #3 tablet 06/20/17 Prednisone [Deltasone -] 10 mg PO DAILY #30 tablet 06/20/17
[2017-06-21] MEDS ORDERED: PT OWN MED DRAWER 7, Y5N ONE (09:29)
[2017-06-21] MEDS: FUROSEMIDE 40 MG TABLET (FP) PO SCH (09:42)
[2017-06-21] MEDS: APIXABAN 2.5 MG TABLET PO SCH (09:42)
[2017-06-21] MEDS: CARVEDILOL 12.5 MG TABLET (FP) PO SCH (09:43)
[2017-06-21] MEDS: COLLAGENASE CLOSTRIDIUM HIST. 30 GRAMS TUBE TP SCH (09:43)
[2017-06-21] MEDS ORDERED: POTASSIUM CHLORIDE TABS 20 MEQ TABLET.ER (FP) PO SCH (10:00)
[2017-06-21] MEDS ORDERED: methylPREDNISolone NA SUCC 40 MG/1 ML VIAL IVPB SCH (10:00)
== END 2017-06-21 14:33 | disposition home or self-care (01) | DRG 194 ==
LOC: JER 20:40 → JERBED 06-16 01:00 → UNDOADMIN 06-16 01:03 → J8W 06-16 02:51
PROVIDERS: ADMIT Internal Medicine; ATTEND Internal Medicine
DX: J18.9 Pneumonia, unspecified organism (principal); C34.90 Malignant neoplasm of unspecified part of unspecified bronchus or lung; F03.90 Unspecified dementia, unspecified severity, without behavioral disturbance, psychotic disturbance, mood disturbance, and anxiety; E78.5 Hyperlipidemia, unspecified; Z95.2 Presence of prosthetic heart valve; Z88.0 Allergy status to penicillin; I48.2 Chronic atrial fibrillation; I10 Essential (primary) hypertension; I87.8 Other specified disorders of veins; R82.71 Bacteriuria; D69.6 Thrombocytopenia, unspecified; R14.0 Abdominal distension (gaseous); Z66 Do not resuscitate
CPT/HCPCS: 36415; 71010-TC; 71250-TC; 80048; 80053; 81003; 81015; 82803; 83605; 85025; 85610; 85730; 87040; 87086; 87186; 87899; 93005; 93010; 94010; 94640; 97116-GP; 97162-GP; 99282-25

== ENCOUNTER 2017-08-08 11:06 | Inpatient (IN) | payer OTHER ==
--- NOTE | 2017-08-08 11:21 | PDOC ---
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 102.1F) beginning approximately this morning. The patient reports associated cough and chills with her fever. The patients daughter reports bringing the patient to her Neurologist at [facility] when she noticed that the patient was excessively fatigued and decided to bring her to the ED. The patients daughter also reports giving the patient a shower this morning and noting that the patients urine had an unusually strong smell. The patient was previously diagnosed with pneumonia and a UTI about 2 months ago. The patient is baseline dyspneic with exertion. The patient also has non-healing wounds on her lower extremities that the home health aide reports have not changed significantly over the past few days. Pt is followed here by Dr. Elton Berg. Pt denies any complaints currently other than chills. The patient denies chest pain, headache and dizziness. Denies nausea, vomit, diarrhea and constipation. Denies dysuria, frequency, urgency and hematuria. Allergies: Bacitracin, Penicillins, TAPE Past surgical history: Heart valve replacement. Social history: No reported cigarette, alcohol, or drug use. PCP: Dr. Garcia Oncologist: Dr. Rico" <Parker Cross - Last Filed: 08/08/17 14:10> - General Chief Complaint: Shortness of Breath Stated Complaint: SOB Time Seen by Provider: 08/08/17 11:21 Past History <Felix Santiago - Last Filed: 08/08/17 14:08> - Past Medical History Anemia: No Asthma: No Cancer: Yes (STAGE 2 LUNG CA) Cardiac Disorders: Yes (OPEN HEART SURGERY VALVE REPLACEMENT [facility]) CVA: No COPD: No CHF: No Dementia: Yes Diabetes: No GI Disorders: No Disorders: No HTN: No Hypercholesterolemia: Yes Liver Disease: No Seizures: No Thyroid Disease: No - Surgical History Cardiac Surgery: Yes (HEART VALVE REPLACEMENT) - Immunization History Immunization Up to Date: No - Psycho/Social/Smoking Cessation Hx Anxiety: No Suicidal Ideation: No Smoking History: Never smoked Have you smoked in the past 12 months: No Hx Alcohol Use: No Drug/Substance Use Hx: No Substance Use Type: None Hx Substance Use Treatment: No <TayParker - Last Filed: 08/08/17 14:10> - Past Medical History Allergies/Adverse Reactions: Allergies Allergy/AdvReac Type Severity Reaction Status Date / Time bacitracin Allergy Rash Verified 06/15/17 20:54 Penicillins Allergy Verified 06/15/17 20:54 TAPE Allergy Uncoded 06/15/17 20:54 Home Medications: Ambulatory Orders Alectinib HCl [Alecensa] 150 mg PO BID 03/26/17 Apixaban [Eliquis -] 2.5 mg PO BID 03/26/17 Carvedilol [Coreg -] 12.5 mg PO DAILY 03/26/17 Furosemide [Lasix -] 40 mg PO DAILY 03/26/17 Montelukast Na [Singulair -] 10 mg PO HS 03/26/17 Potassium Chloride [K-Tab ER] 20 meq PO DAILY 03/26/17 Quetiapine Fumarate [Seroquel] 100 mg PO HS 03/26/17 Tramadol HCl [Ultram -] 50 mg PO Q6H PRN #30 tablet MDD 4 03/29/17 Alprazolam [Xanax] 0.25 mg PO Q8H PRN #20 tablet MDD 3 06/20/17 Prednisone [Deltasone -] 10 mg PO DAILY #30 tablet 06/20/17 Collagenase Clostridium Hist. [Santyl] 1 applic TP DAILY #90 applic 07/14/17 Review of Systems - Review of Systems Comments:: 08/08/17 13:28 "GENERAL/CONSTITUTIONAL: (+) Chills. (+) Weakness. HEAD, EYES, EARS, NOSE AND THROAT: No change in vision. No ear pain or discharge. No sore throat. CARDIOVASCULAR: No chest pain. RESPIRATORY: No SOB. No wheezing, or hemoptysis. GASTROINTESTINAL: No nausea, vomiting, diarrhea or constipation. GENITOURINARY: No dysuria, frequency. MUSCULOSKELETAL: No joint or muscle swelling or pain. No neck or back pain. SKIN: No rash NEUROLOGIC: No headache, vertigo, loss of consciousness, or change in strength/ sensation. ENDOCRINE: No increased thirst. No abnormal weight change. HEMATOLOGIC/LYMPHATIC: No anemia, easy bleeding, or history of blood clots. ALLERGIC/IMMUNOLOGIC: No hives or skin allergy. " <Parker Cross - Last Filed: 08/08/17 14:10> *Physical Exam - Vital Signs Last Vital Signs Temp Pulse Resp BP Pulse Ox 102.1 F H 85 26 H 113/71 92 L 08/08/17 12:36 08/08/17 12:36 08/08/17 12:36 08/08/17 12:36 08/08/17 12:36 <Felix Santiago - Last Filed: 08/08/17 14:08> - Physical Exam Comments: 08/08/17 13:28 "GENERAL: Awake, alert, and fully oriented, in no acute distress HEAD: No signs of trauma EYES: PERRLA, EOMI, sclera anicteric, conjunctiva clear ENT: Auricles normal inspection, hearing grossly normal, nares patent, oropharynx clear without exudates. Moist mucosa NECK: Normal ROM, supple, no lymphadenopathy, JVD, or masses LUNGS: Breath sounds equal, clear to auscultation bilaterally. No wheezes, and no crackles HEART: Regular rate and rhythm, normal S1 and S2, no murmurs, rubs or gallops ABDOMEN: Soft, nontender, normoactive bowel sounds. No guarding, no rebound. No masses EXTREMITIES: (+) 1 cm. lesion of LLE near lateral mediolus. (+) 3 cm. lesion of medial RLE near medial malleolus. (+) 4 cm. lesion lateral aspect of R ankle. Normal range of motion, no edema. No clubbing or cyanosis. No cords or tenderness NEUROLOGICAL: Cranial nerves II through XII grossly intact. Normal speech. SKIN: Warm, Dry, normal turgor, no rashes or lesions noted. " 08/08/17 13:33 <TayParker - Last Filed: 08/08/17 14:10> ED Treatment Course - LABORATORY CBC & Chemistry Diagram: 08/08/17 12:15 08/08/17 12:15 - ADDITIONAL ORDERS Additional order review: Laboratory Results 08/08/17 08/08/17 08/08/17 12:28 12:15 12:15 INR PTT (Actin FS) Sodium Cancelled Potassium Cancelled Chloride Cancelled Carbon Dioxide Cancelled Anion Gap Cancelled BUN Cancelled Creatinine Cancelled Creat Clearance w eGFR Cancelled Random Glucose Cancelled Lactic Acid Calcium Cancelled Magnesium Cancelled Total Bilirubin Cancelled AST Cancelled ALT Cancelled Alkaline Phosphatase Cancelled Creatine Kinase Troponin I B-Natriuretic Peptide Total Protein Cancelled Albumin Cancelled Urine Color Yellow Urine Appearance Cloudy Urine pH 7.0 Urine Protein 1+ H Urine Glucose (UA) Negative Urine Ketones Negative Urine Blood 1+ H Urine Nitrite Positive Urine Bilirubin Negative Urine Urobilinogen Negative Ur Leukocyte Esterase 3+ H D Urine RBC 3 Urine WBC 182 Ur Epithelial Cells Rare Urine Bacteria Rare 08/08/17 08/08/17 08/08/17 12:15 12:15 12:15 INR 1.51 H PTT (Actin FS) 32.9 Sodium 137 Potassium 5.1 Chloride 98 Carbon Dioxide 31 Anion Gap 8 BUN 27 H D Creatinine 1.2 H D Creat Clearance w eGFR 42.70 Random Glucose 113 H Lactic Acid 1.2 Calcium 9.1 Magnesium 2.4 D Total Bilirubin 0.6 AST 30 D ALT 17 D Alkaline Phosphatase 130 H D Creatine Kinase 49 Troponin I < 0.02 B-Natriuretic Peptide 3310.45 H Total Protein 8.3 H Albumin 3.2 L Urine Color Urine Appearance Urine pH Urine Protein Urine Glucose (UA) Urine Ketones Urine Blood Urine Nitrite Urine Bilirubin Urine Urobilinogen Ur Leukocyte Esterase Urine RBC Urine WBC Ur Epithelial Cells Urine Bacteria 08/08/17 12:15 RBC 3.63 MCV 94.1 MCHC 33.5 RDW 16.1 H MPV 9.0 Neutrophils % 79.7 Lymphocytes % 11.2 Monocytes % 7.8 Eosinophils % 0.7 D Basophils % 0.6 - Medications Given in the ED: ED Medications Discontinued Medications Generic Name Dose Route Start Last Admin Trade Name Freq PRN Reason Stop Dose Admin Acetaminophen 1,000 mg 08/08/17 12:11 08/08/17 12:39 Ofirmev Injection - IVPB 08/08/17 12:12 1,000 mg ONCE ONE Administration - Consult/PCP Time Called: 14:00 Case discussed with personal care physician: Binh Garcia - Additional Consults Time Called: 14:05 Consult/PCP: Dr. Viv Jurado <Felix Santiago - Last Filed: 08/08/17 14:08> - LABORATORY CBC & Chemistry Diagram: 08/08/17 12:15 08/08/17 12:15 <Parker Cross - Last Filed: 08/08/17 14:10> Medical Decision Making - Medical Decision Making 08/08/17 13:33 86 F with fever and fatigue, on oral chemo for lung CA. Pt with h/o UTIs. Likely UTI given foul smelling urine. - Labs, blood cultures - UA, CXR - Tylenol - Admit 08/08/17 14:09 Pt with UTI. Started on ceftriaxone based on prior sensitivities. Admitted to Dr. Viv Jurado, covering MD for Dr. Garcia. <Parker Cross - Last Filed: 08/08/17 14:10> *DC/Admit/Observation/Transfer <Felix Santiago - Last Filed: 08/08/17 14:08> - Discharge Dispostion Admit: Yes - Attestations Physician Attestion: 08/08/17 14:10 I, Dr. Parker Cross MD, attest that this document has been prepared under my direction and personally reviewed by me in its entirety. I further attest, that it accurately reflects all work, treatment, procedures and medical decision -making performed by me. <Parker Cross - Last Filed: 08/08/17 14:10> Diagnosis at time of Disposition: UTI (urinary tract infection) - Discharge Dispostion Condition at time of disposition: Stable
[2017-08-08] MEDS ORDERED: ACETAMINOPHEN 1000 MG/100 ML VIAL (NON FORMULARY) IVPB ONE (12:11)
[2017-08-08 12:31] LABS: BASOPHIL 0.6 % (0-2.0); EOSINOPHIL 0.7 % (0-4.5); MCH 31.5 pg (25.7-33.7); MCHC 33.5 g/dl (32.0-36.0); MEAN CELL VOLUME 94.1 fl (80-96); NEUTROPHILS 79.7 % (42.8-82.8); PLATELET COUNT 186 K/MM3 (134-434); RDW 16.1 % (11.6-15.6); WHITE BLOOD COUNT 14.3 K/mm3 (4.0-10.0)
[2017-08-08] MEDS ORDERED: ACETAMINOPHEN INJECTION 100 ML IVPB ONE (12:33)
[2017-08-08 12:37] LABS: URINE APPEARANCE CLOUDY; URINE BILIRUBIN NEGATIVE (NEGATIVE); URINE BLOOD 1+ (NEGATIVE); URINE COLOR YELLOW; URINE GLUCOSE (UA) NEGATIVE (NEGATIVE); URINE KETONE NEGATIVE (NEGATIVE); URINE NITRITE POSITIVE (NEGATIVE); URINE UROBILINOGEN NEGATIVE mg/dL (0.2-1.0)
[2017-08-08 12:39] LABS: URINE LEUK ESTERASE 3+ (NEGATIVE); URINE PROTEIN 1+ (NEGATIVE)
[2017-08-08 12:45] LABS: INR 1.51 (0.82-1.09); PROTHROMBIN TIME (PATIENT) 16.8 SEC (9.98-11.88)
[2017-08-08 12:47] LABS: ACTIVATED PTT 32.9 SECONDS (26.9-34.4)
[2017-08-08 12:57] LABS: ALBUMIN 3.2 g/dl (3.4-5.0); ALK PHOS 130 U/L (45-117); ANION GAP 8 (8-16); BILIRUBIN,TOTAL 0.6 mg/dL (0.2-1.0); CALCIUM 9.1 mg/dL (8.5-10.1); CO2 31 mmol/L (21-32); CREATININE 1.2 mg/dL (0.55-1.02); GLUCOSE,RANDOM 113 mg/dL (74-106); SGPT/ALT 17 U/L (12-78); TOT PROT 8.3 g/dl (6.4-8.2)
[2017-08-08 12:59] LABS: URINE BACTERIA RARE /hpf (NONE SEEN); URINE RBC 3 /hpf (0-3); URINE WBC 182 /hpf (3-5)
[2017-08-08 12:59] LABS: TROPONIN I < 0.02 ng/ml (0.00-0.05)
[2017-08-08 13:04] LABS: CPK 49 IU/L (26-192); MAGNESIUM 2.4 mg/dL (1.8-2.4); SGOT/AST 30 U/L (15-37)
[2017-08-08] MEDS ORDERED: CEFTRIAXONE 1 GM in DEXTROSE 5%-WATER - 50 ML IVPB ONE (13:37)
[2017-08-08] MEDS ORDERED: CEFTRIAXONE 50 ML ONE (13:39)
[2017-08-08] MEDS ORDERED: traMADol HCL 50 MG TABLET PO PRN (16:56)
[2017-08-08] MEDS ORDERED: ALPRAZolam 0.25 MG TABLET PO PRN (16:56)
[2017-08-08 18:29] VITALS: BMI 28.3
[2017-08-08] MEDS ORDERED: ACETAMINOPHEN 325 MG TABLET (FP) PO PRN (19:08)
[2017-08-08] MEDS ORDERED: ALBUTEROL SO4 2.5/IPRATROPIUM 0.5 INH SOL 3 ML VIAL.NEB. NEB ONE (19:08)
[2017-08-08] MEDS ORDERED: POTASSIUM CHLORIDE TABS 20 MEQ TABLET.ER (FP) PO ONE ×2 (19:15)
[2017-08-08] MEDS ORDERED: CARVEDILOL 12.5 MG TABLET (FP) PO ONE (19:15)
[2017-08-08] MEDS ORDERED: FUROSEMIDE 40 MG TABLET (FP) PO ONE (19:15)
[2017-08-08] MEDS: ALBUTEROL SO4 2.5/IPRATROPIUM 0.5 INH SOL 3 ML VIAL.NEB. NEB PRN (19:45)
[2017-08-08] MEDS: COLLAGENASE CLOSTRIDIUM HIST. 30 GRAMS TUBE TP SCH (21:52)
[2017-08-08] MEDS: QUEtiapine FUMARATE 100 MG TABLET (FP) PO SCH (21:52)
[2017-08-08] MEDS: MONTELUKAST NA 10 MG TABLET PO SCH (21:52)
[2017-08-08] MEDS: APIXABAN 2.5 MG TABLET PO SCH (21:52)
[2017-08-08] MEDS ORDERED: ALECTINIB HCL 150 MG PO SCH (22:00)
[2017-08-09] MEDS ORDERED: SODIUM CHLORIDE 1,000 ML IV ONE (02:00)
[2017-08-09] MEDS ORDERED: SODIUM CHLORIDE 1,000 ML IV SCH ×2 (03:00→10:56)
[2017-08-09] MEDS: ALBUTEROL SO4 2.5/IPRATROPIUM 0.5 INH SOL 3 ML VIAL.NEB. NEB PRN ×2 (07:05→21:00)
[2017-08-09 07:39] LABS: MCH 31.1 pg (25.7-33.7); MCHC 32.8 g/dl (32.0-36.0); MEAN CELL VOLUME 94.7 fl (80-96); PLATELET COUNT 127 K/MM3 (134-434); RDW 15.8 % (11.6-15.6); WHITE BLOOD COUNT 27.3 K/mm3 (4.0-10.0)
[2017-08-09 08:27] LABS: ALBUMIN 2.5 g/dl (3.4-5.0); ALK PHOS 108 U/L (45-117); ANION GAP 8 (8-16); BILIRUBIN,TOTAL 0.7 mg/dL (0.2-1.0); CALCIUM 8.2 mg/dL (8.5-10.1); CO2 28 mmol/L (21-32); CREATININE 1.2 mg/dL (0.55-1.02); GLUCOSE,RANDOM 154 mg/dL (74-106); SGOT/AST 22 U/L (15-37); SGPT/ALT 17 U/L (12-78); TOT PROT 6.5 g/dl (6.4-8.2)
[2017-08-09] MEDS ORDERED: cefTRIAXone SODIUM 1 GM VIAL ONE ×2 (09:57→12:57)
[2017-08-09] MEDS ORDERED: DEXTROSE 5%-WATER - 50 ML IVPB ONE ×2 (09:57→12:57)
[2017-08-09] MEDS ORDERED: PT OWN MED DRAWER 7, Y5N ONE (09:57)
[2017-08-09] MEDS ORDERED: CEFTRIAXONE 1 GM in DEXTROSE 5%-WATER - 50 ML IVPB SCH (10:00)
[2017-08-09] MEDS ORDERED: predniSONE 10 MG TABLET (UD) PO SCH (10:00)
[2017-08-09] MEDS ORDERED: COLLAGENASE CLOSTRIDIUM HIST. 30 GRAMS TUBE TP SCH (10:00)
[2017-08-09] MEDS: CARVEDILOL 12.5 MG TABLET (FP) PO SCH (10:02)
[2017-08-09] MEDS: APIXABAN 2.5 MG TABLET PO SCH ×2 (10:02→21:40)
[2017-08-09] MEDS: FUROSEMIDE 40 MG TABLET (FP) PO SCH (10:03)
[2017-08-09] MEDS: POTASSIUM CHLORIDE TABS 20 MEQ TABLET.ER (FP) PO SCH (10:03)
[2017-08-09 10:45] LABS: TOTAL CELLS COUNTED 100
--- NOTE | 2017-08-09 10:55 | HP ---
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 102.1F) beginning approximately this morning. The patient reports associated cough and chills with her fever. The patients daughter reports bringing the patient to her Neurologist at [facility] when she noticed that the patient was excessively fatigued and decided to bring her to the ED. The patients daughter also reports giving the patient a shower this morning and noting that the patients urine had an unusually strong smell. The patient was previously diagnosed with pneumonia and a UTI about 2 months ago. The patient is baseline dyspneic with exertion. The patient also has non-healing wounds on her lower extremities that the home health aide reports have not changed significantly over the past few days. Pt is followed here by Dr. Elton Breg. Pt denies any complaints currently other than chills. The patient denies chest pain, headache and dizziness. Denies nausea, vomit, diarrhea and constipation. Denies dysuria, frequency, urgency and hematuria. Allergies: Bacitracin, Penicillins, TAPE Past surgical history: Heart valve replacement. Social history: No reported cigarette, alcohol, or drug use. PCP: Dr. Garcia Oncologist: Dr. 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: Yes: Alzheimer's Cardiovascular: Yes: AFIB, Aortic Stenosis (s/p AVR- bioprosthetic valve- not on Coumadin - was dc by on Dec 2104), HTN, Hyperlipdemia - Past Surgical History Past Surgical History: Yes: Valve Replacement - Smoking History Smoking history: Never smoked Have you smoked in the past 12 months: No - Alcohol/Substance Use Hx Alcohol Use: No - Social History ADL: Family Assistance History of Recent Travel: No Home Medications - Allergies Allergies/Adverse Reactions: Allergies Allergy/AdvReac Type Severity Reaction Status Date / Time bacitracin Allergy Rash Verified 06/15/17 20:54 Penicillins Allergy Verified 06/15/17 20:54 TAPE Allergy Uncoded 06/15/17 20:54 - Home Medications Home Medications: Ambulatory Orders Alectinib HCl [Alecensa] 150 mg PO Q48H 03/26/17 Apixaban [Eliquis -] 2.5 mg PO BID 03/26/17 Carvedilol [Coreg -] 12.5 mg PO DAILY 03/26/17 Furosemide [Lasix -] 40 mg PO DAILY 03/26/17 Montelukast Na [Singulair -] 10 mg PO HS 03/26/17 Potassium Chloride [K-Tab ER] 20 meq PO DAILY 03/26/17 Quetiapine Fumarate [Seroquel] 100 mg PO HS 03/26/17 Collagenase Clostridium Hist. [Santyl] 1 applic TP DAILY #90 applic 07/14/17 Albuterol 0.083% Nebulizer Gabrielle [Ventolin 0.083% Nebulizer Soln -] 1 amp NEB BID 08/08/17 Albuterol 0.083% Nebulizer Gabrielle [Ventolin 0.083% Nebulizer Soln -] 1 amp NEB TID PRN 08/08/17 Alectinib HCl [Alecensa] 300 mg PO Q48H 08/08/17 Family Disease History - Family Disease History Family Disease History: Other: Daughter (pe) Review of Systems - Review of Systems Constitutional: reports: Chills, Fever, Weakness Respiratory: reports: Cough, SOB Genitourinary: reports: Burning, Frequency Physical Examination Vital Signs: Vital Signs Temperature 97.5 F L 08/09/17 06:00 Pulse Rate 72 08/09/17 06:00 Respiratory Rate 20 08/09/17 06:00 Blood Pressure 95/53 08/09/17 06:00 O2 Sat by Pulse Oximetry (%) 97 08/08/17 21:00 Constitutional: Yes: No Distress, Calm Cardiovascular: Yes: Regular Rate and Rhythm, Murmur Respiratory: Yes: Rhonchi Gastrointestinal: Yes: Normal Bowel Sounds, Soft. No: Distention, Tenderness Extremities: Yes: Other (rt leg wound-- erythem+ increased) Edema: Yes Psychiatric: Yes: Alert Labs: CBC, BMP 08/09/17 06:00 08/09/17 06:00 Imaging - Results Chest X-ray: Image Reviewed (congestion, infiltrates in left) EKG: Image Reviewed (Afib) Problem List - Problems (1) UTI (urinary tract infection) Code(s): N39.0 - URINARY TRACT INFECTION, SITE NOT SPECIFIED (2) Atrial fibrillation Code(s): I48.91 - UNSPECIFIED ATRIAL FIBRILLATION Qualifiers: Atrial fibrillation type: chronic Qualified Code(s): I48.2 - Chronic atrial fibrillation (3) H/O aortic valve replacement Code(s): Z95.2 - PRESENCE OF PROSTHETIC HEART VALVE (4) Lung cancer Code(s): C34.90 - MALIGNANT NEOPLASM OF UNSP PART OF UNSP BRONCHUS OR LUNG Qualifiers: Laterality: left Lung location: upper lobe of lung Qualified Code(s): C34.12 - Malignant neoplasm of upper lobe, left bronchus or lung (5) Pneumonia Code(s): J18.9 - PNEUMONIA, UNSPECIFIED ORGANISM Qualifiers: Pneumonia type: due to unspecified organism Laterality: bilateral Lung location: lower lobe of lung Qualified Code(s): J18.9 - Pneumonia, unspecified organism (6) Wound infection Code(s): T14.8 - OTHER INJURY OF UNSPECIFIED BODY REGION L08.9 - LOCAL INFECTION OF THE SKIN AND SUBCUTANEOUS TISSUE, UNSP Assessment/Plan PLAN WBC increased, pt not on Neulasta IV fluids iv antibiotics Blood cultures pending pt hypotensive due to sepsis-- given fluids boluses Chemo on hold due to sepsis spoke to daughter , she does not want pt to go to ICU for pressors-- no Triple lumen catheter pt on Eliquis for Afib plan of care discussed with daughter . Also she will speak to her sister regarding advance directives
[2017-08-09] MEDS: COLLAGENASE CLOSTRIDIUM HIST. 30 GRAMS TUBE TP SCH (10:56)
[2017-08-09] MEDS ORDERED: CEFTRIAXONE 1 GM in DEXTROSE 5%-WATER - 50 ML IVPB ONE (12:20)
[2017-08-09] MEDS ORDERED: GENTAMICIN INJECTION 250 MG in SODIUM CHLORIDE 250 ML IVPB ONE (12:23)
--- NOTE | 2017-08-09 12:32 | PN ---
Progress Note (short form) - Note Progress Note: ID Consult dictated UTI/ Sepsis secondary to UTI Hypotension, secondary to sepsis Hx CRE UTI (06/16) Exacerbation COPD Stage IV lung ca ? post-obstructive pneumonia S/P AVR Marked leukocytosis PCN allergy Pending ca, empiric ceftriaxone + stat dose gentamicin Contact precautions Discussed with family at bedside
--- NOTE | 2017-08-09 15:16 | CONS ---
DATE OF CONSULTATION: DATE OF DICTATION: 08/09/2017 The patient is an 86-year-old female with a history of stage IV lung cancer on immunotherapy; history of COPD, oxygen dependent; and recurrent urinary tract infections, now evaluated for sepsis. The patient was admitted to the hospital on August 08, 2017, with a 1-day history of worsening generalized weakness, fatigue, fever, chills, and cough. She had been increasing short of breath at home. When her oxygen was removed she desaturated. She had presented to [facility] for evaluation by her neurologist and was referred to the emergency room. Family also reports that she had some malodorous urine. At the present time she is awake and alert. She is seated in bed. She is slightly short of breath at rest on nasal cannula. She denies any chest pain. She has had a nonproductive cough, denies any sputum production or hemoptysis. Denies any dysuria or hematuria. In the emergency room her temperature was 102. White blood cell count today 27,000. PAST MEDICAL HISTORY: Positive for stage IV lung cancer. A CAT scan in May of 2017 revealed a left lung mass with associated consolidated lung. Past medical history also includes mild dementia, oxygen-dependent COPD, hyperlipidemia, recurrent urinary tract infections (patient with a CRE in May 2017). PAST SURGICAL HISTORY: Status post aortic valve replacement, bioprosthetic. ALLERGIES: PENICILLIN and BACITRACIN. Develops rash to PENICILLIN. No history of anaphylaxis. MEDICATIONS: Include Singulair, Seroquel, Ultram, Xanax, prednisone, Eliquis, Coreg, Lasix. SOCIAL HISTORY: Lives at home with family members. Nonsmoker, nondrinker. REVIEW OF SYSTEMS: Neurologic: Mild dementia. No loss of consciousness, seizure activity, focal weakness. Cardiac: Negative chest pain or palpitations. Respiratory: As per HPI. Gastrointestinal: Negative vomiting or diarrhea. Genitourinary: As per HPI. LABORATORY DATA: White count 27.3, 89 neutrophils, 6 lymphocytes, 5 monocytes. Hematocrit 28.4, platelets 127, BUN 30, creatinine 1.2. Liver enzymes normal. Urinalysis with 182 white cells. Chest x-ray shows opacity, left midlung field. Blood culture is pending. Urine culture growing a lactose manager video. PHYSICAL EXAMINATION: General: She is awake and alert. She is seated in bed. She is slightly short of breath at rest on nasal cannula oxygen. Vital Signs: Temperature 97.7, blood pressure 85/53, pulse 72 and regular. Respirations 22 per minute. T-max 102.2. HEENT: Sclerae are anicteric. Cardiovascular: Heart sounds S1, S2, positive murmur. Lungs: Few crepitations at the right base, otherwise clear. No wheezing or rhonchi. Abdomen: Obese, soft. No tenderness elicited. No mass, rebound, or rigidity. Extremities: Positive for edema. Bilateral ankle ulcers present. IMPRESSION: 1. Urinary tract infection/sepsis secondary to urinary tract infection. 2. Hypotension secondary to sepsis. 3. 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 4. Exacerbation of chronic obstructive pulmonary disease. 5. Stage IV lung cancer with possible post obstructive pneumonia. 6. Status post aortic valve replacement. 7. Marked leukocytosis. 8. Penicillin allergy. Pending cultures, empiric antibiotic coverage for urinary tract and lung pathogens with ceftriaxone. Will give stat dosed gentamicin to cover for possible carbapenem-resistant Enterobacteriaceae in the urine. Contact precautions, intravenous fluid hydration. Case discussed with family members present at the time of the examination. Thank you for the kind referral. SARAH MUELLER M.D. [id number]
[2017-08-09] MEDS: QUEtiapine FUMARATE 100 MG TABLET (FP) PO SCH (21:40)
[2017-08-09] MEDS: MONTELUKAST NA 10 MG TABLET PO SCH (21:41)
[2017-08-10] MEDS: ALBUTEROL SO4 2.5/IPRATROPIUM 0.5 INH SOL 3 ML VIAL.NEB. NEB PRN (07:04)
[2017-08-10 08:12] LABS: BASOPHIL 0.2 % (0-2.0); EOSINOPHIL 0.3 % (0-4.5); MCH 31.4 pg (25.7-33.7); MCHC 33.3 g/dl (32.0-36.0); MEAN CELL VOLUME 94.2 fl (80-96); MEAN PLT VOLUME 9.4 fl (7.5-11.1); NEUTROPHILS 82.8 % (42.8-82.8); PLATELET COUNT 114 K/MM3 (134-434); RDW 16.4 % (11.6-15.6)
[2017-08-10 08:41] LABS: ALBUMIN 2.7 g/dl (3.4-5.0); ANION GAP 9 (8-16); CALCIUM 8.2 mg/dL (8.5-10.1); CO2 24 mmol/L (21-32); CREATININE 0.9 mg/dL (0.55-1.02); GLUCOSE,RANDOM 104 mg/dL (74-106); SGOT/AST 22 U/L (15-37); SGPT/ALT 19 U/L (12-78)
[2017-08-10 08:44] LABS: ALK PHOS 104 U/L (45-117); BILIRUBIN,TOTAL 0.6 mg/dL (0.2-1.0)
--- NOTE | 2017-08-10 09:29 | PN ---
Progress Note, Physician Chief Complaint: SOB this AM coughing+ O2 increased to 5 L spoke to daughter on phone- Apurva - Current Medication List Current Medications: Active Medications Acetaminophen (Tylenol -) 650 mg PO Q6H PRN PRN Reason: FEVER OR PAIN Last Admin: 08/08/17 19:33 Dose: 650 mg Albuterol/Ipratropium (Duoneb -) 1 amp NEB Q6H PRN PRN Reason: SHORT OF BREATH/WHEEZING Last Admin: 08/10/17 07:04 Dose: 1 amp Alprazolam (Xanax -) 0.25 mg PO Q8H PRN PRN Reason: ANXIETY Last Admin: 08/08/17 19:34 Dose: 0.25 mg Apixaban (Eliquis -) 2.5 mg PO BID [facility] Last Admin: 08/09/17 21:40 Dose: 2.5 mg Carvedilol (Coreg -) 12.5 mg PO DAILY [facility] Last Admin: 08/09/17 10:02 Dose: Not Given Collagenase (Santyl -) 1 applic TP DAILY [facility] Last Admin: 08/09/17 10:56 Dose: 1 applic Furosemide (Lasix -) 40 mg PO DAILY [facility] Last Admin: 08/09/17 10:03 Dose: Not Given Sodium Chloride (Normal Saline -) 1,000 mls @ 60 mls/hr IV ASDIR DES Last Admin: 08/09/17 11:10 Dose: 60 mls/hr Ceftriaxone Sodium 2 gm/ (Dextrose) 100 mls @ 200 mls/hr IVPB DAILY DES Montelukast Sodium (Singulair -) 10 mg PO HS [facility] Last Admin: 08/09/17 21:41 Dose: 10 mg Potassium Chloride (K-Dur -) 20 meq PO DAILY DES Last Admin: 08/09/17 10:03 Dose: 20 meq Prednisone (Deltasone -) 10 mg PO DAILY DES Last Admin: 08/09/17 10:02 Dose: 10 mg Quetiapine Fumarate (Seroquel -) 100 mg PO HS [facility] Last Admin: 08/09/17 21:40 Dose: 100 mg Tramadol HCl (Ultram -) 50 mg PO Q6H PRN PRN Reason: BACK PAIN Last Admin: 08/09/17 19:40 Dose: 50 mg - Objective Vital Signs: Vital Signs Temperature 97.5 F L 08/10/17 07:20 Pulse Rate 101 H 08/10/17 07:20 Respiratory Rate 20 08/10/17 07:20 Blood Pressure 128/93 08/10/17 07:20 O2 Sat by Pulse Oximetry (%) 93 L 08/09/17 21:00 Constitutional: Yes: Anxious, Mild Distress Cardiovascular: Yes: Regular Rate and Rhythm Respiratory: Yes: Diminished, Rhonchi Gastrointestinal: Yes: Normal Bowel Sounds, Soft. No: Distention, Tenderness Edema: Yes Edema: LLE: 1+, RLE: 1+ Labs: CBC, BMP 08/10/17 06:45 08/10/17 06:45 INR, PTT INR 1.51 (0.82-1.09) H 08/08/17 12:15 Problem List - Problems (1) UTI (urinary tract infection) Code(s): N39.0 - URINARY TRACT INFECTION, SITE NOT SPECIFIED (2) Atrial fibrillation Code(s): I48.91 - UNSPECIFIED ATRIAL FIBRILLATION Qualifiers: Atrial fibrillation type: chronic Qualified Code(s): I48.2 - Chronic atrial fibrillation (3) H/O aortic valve replacement Code(s): Z95.2 - PRESENCE OF PROSTHETIC HEART VALVE (4) Lung cancer Code(s): C34.90 - MALIGNANT NEOPLASM OF UNSP PART OF UNSP BRONCHUS OR LUNG Qualifiers: Laterality: left Lung location: upper lobe of lung Qualified Code(s): C34.12 - Malignant neoplasm of upper lobe, left bronchus or lung (5) Pneumonia Code(s): J18.9 - PNEUMONIA, UNSPECIFIED ORGANISM Qualifiers: Pneumonia type: due to unspecified organism Laterality: bilateral Lung location: lower lobe of lung Qualified Code(s): J18.9 - Pneumonia, unspecified organism (6) Wound infection Code(s): T14.8 - OTHER INJURY OF UNSPECIFIED BODY REGION L08.9 - LOCAL INFECTION OF THE SKIN AND SUBCUTANEOUS TISSUE, UNSP Assessment/Plan PLAN WBC decreased decrease iv fluids iv antibiotics Blood cultures -- negative start Solumedrol, dc Prednisone nebs scheduled pt on Eliquis for Afib plan of care discussed with daughter , pt is DNR and DNI-- she will bring the documents DVT propylaxis-- Eliquis
[2017-08-10] MEDS ORDERED: SODIUM CHLORIDE 1,000 ML IV SCH (09:30)
[2017-08-10] MEDS ORDERED: DEXTROSE 5%-WATER 100 ML IVPB ONE (09:44)
[2017-08-10] MEDS ORDERED: ALBUTEROL SO4 2.5/IPRATROPIUM 0.5 INH SOL 3 ML VIAL.NEB. NEB ONE (09:44)
[2017-08-10] MEDS ORDERED: PT OWN MED DRAWER 7, Y5N ONE (09:45)
[2017-08-10] MEDS: FUROSEMIDE 40 MG TABLET (FP) PO SCH (09:51)
[2017-08-10] MEDS: APIXABAN 2.5 MG TABLET PO SCH ×2 (09:51→21:29)
[2017-08-10] MEDS: POTASSIUM CHLORIDE TABS 20 MEQ TABLET.ER (FP) PO SCH (09:51)
[2017-08-10] MEDS: CARVEDILOL 12.5 MG TABLET (FP) PO SCH (09:51)
[2017-08-10] MEDS: CEFTRIAXONE 2 GM in DEXTROSE 5%-WATER 100 ML IVPB SCH (09:52)
[2017-08-10] MEDS: methylPREDNISolone NA SUCC 40 MG/1 ML VIAL IVPB SCH ×3 (09:53→21:29)
[2017-08-10] MEDS: ALBUTEROL SO4 2.5/IPRATROPIUM 0.5 INH SOL 3 ML VIAL.NEB. NEB SCH ×4 (09:56→22:34)
[2017-08-10] MEDS: guaiFENesin 200 MG/10 ML 10 ML UNIT-DOSE CUPS PO PRN (10:01)
--- NOTE | 2017-08-10 12:59 | PN ---
Progress Note (short form) - Note Progress Note: PULMONARY CONSULTATION DICTATED 08/10/17 IMP ACUTE ON CHRONIC HYPOXEMIC RESPIRATORY FAILURE SEPSIS ?,PNEUMONIA LUNG CA STAGE 4 COPD ON O2 S/P AVR AFIB PLAN IV ANTIBIOTICS PER ID IV STEROIDS INHALED BRONCHODILATORS CULTURES F/U CHEST X-RAY IVF DR REYNA Problem List - Problems (1) H/O aortic valve replacement Code(s): Z95.2 - PRESENCE OF PROSTHETIC HEART VALVE (2) Lung cancer Code(s): C34.90 - MALIGNANT NEOPLASM OF UNSP PART OF UNSP BRONCHUS OR LUNG Qualifiers: Laterality: left Lung location: upper lobe of lung Qualified Code(s): C34.12 - Malignant neoplasm of upper lobe, left bronchus or lung (3) Pneumonitis Code(s): J18.9 - PNEUMONIA, UNSPECIFIED ORGANISM (4) Atrial fibrillation Code(s): I48.91 - UNSPECIFIED ATRIAL FIBRILLATION Qualifiers: Atrial fibrillation type: chronic Qualified Code(s): I48.2 - Chronic atrial fibrillation (5) Dementia Code(s): F03.90 - UNSPECIFIED DEMENTIA WITHOUT BEHAVIORAL DISTURBANCE Qualifiers: Dementia type: unspecified type Dementia behavioral disturbance: without behavioral disturbance Qualified Code(s): F03.90 - Unspecified dementia without behavioral disturbance (6) HTN (hypertension) Code(s): I10 - ESSENTIAL (PRIMARY) HYPERTENSION Qualifiers: Hypertension type: essential hypertension Qualified Code(s): I10 - Essential (primary) hypertension (7) Lung mass Code(s): R91.8 - OTHER NONSPECIFIC ABNORMAL FINDING OF LUNG FIELD (8) Sepsis Code(s): A41.9 - SEPSIS, UNSPECIFIED ORGANISM (9) Acute on chronic respiratory failure with hypoxemia Code(s): J96.21 - ACUTE AND CHRONIC RESPIRATORY FAILURE WITH HYPOXIA
[2017-08-10] MEDS: COLLAGENASE CLOSTRIDIUM HIST. 30 GRAMS TUBE TP SCH (14:57)
--- NOTE | 2017-08-10 16:15 | PN ---
Progress Note, Physician History of Present Illness: Resting comfortably Afebrile on steroids BC (-) Urine c/s ESBL - Current Medication List Current Medications: Active Medications Acetaminophen (Tylenol -) 650 mg PO Q6H PRN PRN Reason: FEVER OR PAIN Last Admin: 08/08/17 19:33 Dose: 650 mg Albuterol/Ipratropium (Duoneb -) 1 amp NEB Q4HWA DES Last Admin: 08/10/17 13:41 Dose: 1 amp Alprazolam (Xanax -) 0.25 mg PO Q8H PRN PRN Reason: ANXIETY Last Admin: 08/08/17 19:34 Dose: 0.25 mg Apixaban (Eliquis -) 2.5 mg PO BID [facility] Last Admin: 08/10/17 09:51 Dose: 2.5 mg Carvedilol (Coreg -) 12.5 mg PO DAILY [facility] Last Admin: 08/10/17 09:51 Dose: 12.5 mg Collagenase (Santyl -) 1 applic TP DAILY [facility] Last Admin: 08/10/17 14:57 Dose: 1 applic Furosemide (Lasix -) 40 mg PO DAILY [facility] Last Admin: 08/10/17 09:51 Dose: 40 mg Guaifenesin (Robitussin -) 10 ml PO Q4H PRN PRN Reason: COUGH Last Admin: 08/10/17 10:01 Dose: 10 ml Ceftriaxone Sodium 2 gm/ (Dextrose) 100 mls @ 200 mls/hr IVPB DAILY [facility] Last Admin: 08/10/17 09:52 Dose: 200 mls/hr Methylprednisolone Sodium Succinate (Solu-Medrol -) 60 mg IVPB Q6H-IV DES Last Admin: 08/10/17 15:39 Dose: 60 mg Montelukast Sodium (Singulair -) 10 mg PO HS [facility] Last Admin: 08/09/17 21:41 Dose: 10 mg Potassium Chloride (K-Dur -) 20 meq PO DAILY [facility] Last Admin: 08/10/17 09:51 Dose: 20 meq Quetiapine Fumarate (Seroquel -) 100 mg PO HS DES Last Admin: 08/09/17 21:40 Dose: 100 mg Tramadol HCl (Ultram -) 50 mg PO Q6H PRN PRN Reason: BACK PAIN Last Admin: 08/09/17 19:40 Dose: 50 mg - Objective Vital Signs: Vital Signs Temperature 96.8 F L 08/10/17 13:57 Pulse Rate 103 H 08/10/17 13:57 Respiratory Rate 20 08/10/17 13:57 Blood Pressure 150/94 08/10/17 13:57 O2 Sat by Pulse Oximetry (%) 90 L 08/10/17 08:45 Constitutional: Yes: No Distress, Obese Cardiovascular: Yes: Regular Rate and Rhythm, S1, S2 Respiratory: Yes: Diminished Gastrointestinal: Yes: Normal Bowel Sounds, Soft. No: Tenderness Edema: Yes Labs: CBC, BMP 08/10/17 06:45 08/10/17 06:45 INR, PTT INR 1.51 (0.82-1.09) H 08/08/17 12:15 Assessment/Plan Exacerbation COPD Stage IV lung ca Possible post-obstructive pneumonia UTI PCN allergy Continue ceftriaxone + stat dose gentamicin Repeat genta trough am Discussed with family at bedside Contact precautions
--- NOTE | 2017-08-10 17:45 | CONS ---
DATE OF CONSULTATION: 08/10/2017 REFERRING PHYSICIAN: Padmini Ch MD The patient is an 86-year-old [place] female, past medical history of stage 4 lung cancer, currently on oral chemotherapy, being treated at [facility], dementia, hyperlipidemia, COPD, on nasal O2 2 L at home, history of pneumonia, multiple UTIs, who is a nonsmoker, admitted to [facility] with complaints of generalized weakness, fatigue, fever and chills, beginning on morning of admission. Patient also complained of occasional cough associated with a fever. Denied any complaints of chest pain, nausea, vomiting or diaphoresis. Apparently patient on her way to [facility] to be evaluated by a neurologist, at which times she noticed the patient progressively weak, short of breath, and came to the emergency room. There was no history of DVT or PE in the past. As stated before, she is a nonsmoker. There is no history of occupational exposure to chemicals or fumes. Earlier today, the patient started developing increasing respiratory distress, where she was started on IV steroids, inhaled bronchodilators, with good clinical response. Past medical history, again, includes stage 4 lung cancer, currently on oral chemotherapy; history of valve replacement; COPD; dementia; hyperlipidemia; multiple UTIs; atrial fibrillation; aortic valve replacement, bioprosthetic. REVIEW OF SYSTEMS: Positive shortness of breath, positive cough. No chest pain. No palpitations. Positive fevers, positive chills. No hemoptysis. No abdominal pain. CURRENT MEDICATIONS: Lasix, Singulair, potassium chloride, Seroquel, Santyl, albuterol, . PHYSICAL EXAMINATION: General: The patient is an elderly white female, well developed, well nourished, awake, alert, sitting out of bed in chair, currently in no acute distress. Vital Signs: She is currently afebrile. Blood pressure is 146/75. Respiratory rate 22. O2 saturation is 96% on 5 L. HEENT: Normocephalic, atraumatic. Neck: Supple. Heart: Irregularly irregular. Normal S1, S2. Chest: Scattered crackles bilaterally, a few wheezes. Abdomen: Soft. Bowel sounds positive. Extremities: Bilateral extremity edema. LABORATORIES: Sodium 133, BUN 27, creatinine 0.9, INR is 1.51; WBC is 17.0, hemoglobin 9.3, hematocrit 27.9. UA: 1+ protein, 1+ heme, 3+ leukocyte esterase. Gentamicin trough is 3.6. Chest x-ray: Congestion, opacity in left midlung field, and scattered bilateral opacities. Urine culture is positive for E coli ESBL. IMPRESSION: 1. Acute on chronic hypoxemic respiratory failure, likely sepsis, rule out possible genitourinary sepsis, possible pneumonia. 2. Sepsis. 3. Hypotension, likely secondary to sepsis. 4. Stage 4 lung cancer, possible postobstructive pneumonia. 5. Chronic obstructive pulmonary disease, on home O2. 6. Valvular heart disease, status post aortic valve replacement. PLAN: Inhaled bronchodilators, supplemental O2, IV steroids, obtain cultures, followup chest x-ray, IV fluids. TO REYNA M.D. [id number]
[2017-08-10] MEDS: QUEtiapine FUMARATE 100 MG TABLET (FP) PO SCH (21:30)
[2017-08-10] MEDS: MONTELUKAST NA 10 MG TABLET PO SCH (21:30)
[2017-08-11] MEDS: methylPREDNISolone NA SUCC 40 MG/1 ML VIAL IVPB SCH ×4 (02:13→21:10)
[2017-08-11] MEDS: ALBUTEROL SO4 2.5/IPRATROPIUM 0.5 INH SOL 3 ML VIAL.NEB. NEB SCH ×4 (06:45→22:46)
[2017-08-11 08:01] LABS: BASOPHIL 0.1 % (0-2.0); MCH 31.7 pg (25.7-33.7); MCHC 34.1 g/dl (32.0-36.0); MEAN CELL VOLUME 92.9 fl (80-96); MEAN PLT VOLUME 9.3 fl (7.5-11.1); NEUTROPHILS 86.6 % (42.8-82.8); PLATELET COUNT 136 K/MM3 (134-434); RDW 16.1 % (11.6-15.6)
[2017-08-11] MEDS: guaiFENesin 200 MG/10 ML 10 ML UNIT-DOSE CUPS PO PRN (08:21)
[2017-08-11 08:31] LABS: ANION GAP 11 (8-16); CO2 28 mmol/L (21-32); CREATININE 0.8 mg/dL (0.55-1.02); GLUCOSE,RANDOM 165 mg/dL (74-106)
[2017-08-11 08:34] LABS: ALK PHOS 116 U/L (45-117); ANION GAP 10 (8-16); BILIRUBIN,TOTAL 0.6 mg/dL (0.2-1.0); CALCIUM 9.1 mg/dL (8.5-10.1); CO2 27 mmol/L (21-32); CREATININE 0.8 mg/dL (0.55-1.02); GLUCOSE,RANDOM 169 mg/dL (74-106); SGOT/AST 26 U/L (15-37); SGPT/ALT 25 U/L (12-78); THYROID STIMULATING HORMONE 1.78 uIU/ml (0.358-3.74); TOT PROT 7.9 g/dl (6.4-8.2)
[2017-08-11 09:12] LABS: FREE T4 1.09 ng/dl (0.76-1.46)
--- NOTE | 2017-08-11 09:59 | PN ---
Progress Note, Physician Chief Complaint: ID Major complaint severe dyspnea ( Lung mass and severe emphysema ) Had fever 102 on admission now normal Complains of right post shoulder pain Hypoxemic on nasal cannula 90% - Current Medication List Current Medications: Active Medications Acetaminophen (Tylenol -) 650 mg PO Q6H PRN PRN Reason: FEVER OR PAIN Last Admin: 08/08/17 19:33 Dose: 650 mg Albuterol/Ipratropium (Duoneb -) 1 amp NEB Q4HWA DES Last Admin: 08/11/17 06:45 Dose: 1 amp Alprazolam (Xanax -) 0.25 mg PO Q8H PRN PRN Reason: ANXIETY Last Admin: 08/08/17 19:34 Dose: 0.25 mg Apixaban (Eliquis -) 2.5 mg PO BID DES Last Admin: 08/10/17 21:29 Dose: 2.5 mg Carvedilol (Coreg -) 12.5 mg PO DAILY DES Last Admin: 08/10/17 09:51 Dose: 12.5 mg Collagenase (Santyl -) 1 applic TP DAILY DES Last Admin: 08/10/17 14:57 Dose: 1 applic Furosemide (Lasix -) 40 mg PO DAILY DES Last Admin: 08/10/17 09:51 Dose: 40 mg Guaifenesin (Robitussin -) 10 ml PO Q4H PRN PRN Reason: COUGH Last Admin: 08/11/17 08:21 Dose: 10 ml Ceftriaxone Sodium 2 gm/ (Dextrose) 100 mls @ 200 mls/hr IVPB DAILY DES Last Admin: 08/10/17 09:52 Dose: 200 mls/hr Methylprednisolone Sodium Succinate (Solu-Medrol -) 60 mg IVPB Q6H-IV DES Last Admin: 08/11/17 08:21 Dose: 60 mg Montelukast Sodium (Singulair -) 10 mg PO HS DES Last Admin: 08/10/17 21:30 Dose: 10 mg Potassium Chloride (K-Dur -) 20 meq PO DAILY DES Last Admin: 08/10/17 09:51 Dose: 20 meq Quetiapine Fumarate (Seroquel -) 100 mg PO HS DES Last Admin: 08/10/17 21:30 Dose: 100 mg Tramadol HCl (Ultram -) 50 mg PO Q6H PRN PRN Reason: BACK PAIN Last Admin: 08/09/17 19:40 Dose: 50 mg - Objective Vital Signs: Vital Signs Temperature 97.9 F 08/11/17 07:02 Pulse Rate 107 H 08/11/17 07:02 Respiratory Rate 20 08/11/17 07:02 Blood Pressure 132/84 08/11/17 07:02 O2 Sat by Pulse Oximetry (%) 90 L 08/10/17 21:00 Constitutional: Yes: Moderate Distress HENT: Yes: WNL, Atraumatic Neck: Yes: WNL, Supple Cardiovascular: Yes: Regular Rate and Rhythm, S1, S2. No: Gallop, Murmur Respiratory: Yes: WNL, Regular, CTA Bilaterally, Rhonchi, Tachypnea. No: Rales , Wheezes Gastrointestinal: Yes: WNL, Normal Bowel Sounds, Soft. No: Splenomegaly, Tenderness, Epigastrium, Tenderness, Rebound Edema: Yes (Pitting edema) Labs: CBC, BMP 08/11/17 07:15 08/11/17 07:15 INR, PTT INR 1.51 (0.82-1.09) H 08/08/17 12:15 Problem List - Problems (1) Acute on chronic respiratory failure with hypoxemia Code(s): J96.21 - ACUTE AND CHRONIC RESPIRATORY FAILURE WITH HYPOXIA (2) Lung cancer Code(s): C34.90 - MALIGNANT NEOPLASM OF UNSP PART OF UNSP BRONCHUS OR LUNG Qualifiers: Laterality: left Lung location: upper lobe of lung Qualified Code(s): C34.12 - Malignant neoplasm of upper lobe, left bronchus or lung (3) Colonization with multidrug-resistant bacteria Code(s): Z22.322 - CARRIER OR SUSPECTED CARRIER OF METHICILLIN RESIS STAPH Assessment/Plan Microbiology 08/08/17 12:30 Urine - Urine Pruett Urine Culture - Final Escherichia Coli 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 08/08/17 12:07 Blood - Peripheral Venous Blood Culture - Preliminary NO GROWTH OBTAINED AFTER 48 HOURS, INCUBATION TO CONTINUE FOR 3 DAYS. Laboratory Tests 08/08/17 08/11/17 08/11/17 12:28 07:15 07:15 WBC 9.0 D Hgb 10.2 L Hct 30.0 L Plt Count 136 BUN Creatinine Total Bilirubin 0.6 Alkaline Phosphatase 116 Ur Leukocyte Esterase 3+ H D Urine RBC 3 Urine WBC 182 08/11/17 07:15 WBC Hgb Hct Plt Count BUN 21 H Creatinine 0.8 Total Bilirubin Alkaline Phosphatase Ur Leukocyte Esterase Urine RBC Urine WBC Assessment Severe COPD Lung cancer POst obstructive pneumonia Urinary infection ESBL Atrial fibrillation Severe lower extremity edema Plan Stop Ceftriaxone Ertepenem 1 gram daily pulmonary coverage of post obstructive infection and UTI Dopplers LE though on Eliquis so DVT less likely Discussed Dr Adrien Ibarra MD
--- NOTE | 2017-08-11 10:48 | PN ---
Progress Note (short form) - Note Progress Note: pt seen/ examined. chart reviewed daughter at bedside. sob-- sat 90 percent mild distress denies cp. anxious pain + behind scapula Vital Signs Temp 97.9 F 08/11/17 07:02 Pulse 106 H 08/11/17 10:00 Resp 30 H 08/11/17 10:00 BP 120/90 08/11/17 10:00 Pulse Ox 90 L 08/10/17 21:00 Intake & Output 08/10/17 08/10/17 08/11/17 11:59 23:59 11:59 Intake Total 360 1047 250 Balance 360 1047 250 Intake: IV 360 327 Normal Saline - 1,000 ml 360 @ 60 mls/hr IV ASDIR [facility] Rx#:[id number] Normal Saline - 1,000 ml 327 @ 40 mls/hr IV ASDIR [facility] Rx#:[id number] IVPB 250 50 Oral 470 200 Other: Voiding Method Bedside Commode # Unmeasured Voids Void 3 1 Bowel Movement Yes: small Yes: small Active Medications Acetaminophen (Tylenol -) 650 mg PO Q6H PRN PRN Reason: FEVER OR PAIN Last Admin: 08/08/17 19:33 Dose: 650 mg Albuterol/Ipratropium (Duoneb -) 1 amp NEB Q4HWA [facility] Last Admin: 08/11/17 06:45 Dose: 1 amp Alprazolam (Xanax -) 0.25 mg PO Q8H PRN PRN Reason: ANXIETY Last Admin: 08/08/17 19:34 Dose: 0.25 mg Apixaban (Eliquis -) 2.5 mg PO BID [facility] Last Admin: 08/10/17 21:29 Dose: 2.5 mg Carvedilol (Coreg -) 12.5 mg PO DAILY [facility] Last Admin: 08/10/17 09:51 Dose: 12.5 mg Collagenase (Santyl -) 1 applic TP DAILY [facility] Last Admin: 08/10/17 14:57 Dose: 1 applic Furosemide (Lasix -) 40 mg PO DAILY [facility] Last Admin: 08/10/17 09:51 Dose: 40 mg Guaifenesin (Robitussin -) 10 ml PO Q4H PRN PRN Reason: COUGH Last Admin: 08/11/17 08:21 Dose: 10 ml Ceftriaxone Sodium 2 gm/ (Dextrose) 100 mls @ 200 mls/hr IVPB DAILY DES Last Admin: 08/10/17 09:52 Dose: 200 mls/hr Ertapenem 1 gm/ Sodium (Chloride) 50 mls @ 50 mls/hr IVPB DAILY DES PRN Reason: Protocol Methylprednisolone Sodium Succinate (Solu-Medrol -) 60 mg IVPB Q6H-IV DES Last Admin: 08/11/17 08:21 Dose: 60 mg Montelukast Sodium (Singulair -) 10 mg PO HS [facility] Last Admin: 08/10/17 21:30 Dose: 10 mg Potassium Chloride (K-Dur -) 20 meq PO DAILY DES Last Admin: 08/10/17 09:51 Dose: 20 meq Quetiapine Fumarate (Seroquel -) 100 mg PO HS DES Last Admin: 08/10/17 21:30 Dose: 100 mg Tramadol HCl (Ultram -) 50 mg PO Q6H PRN PRN Reason: BACK PAIN Last Admin: 08/09/17 19:40 Dose: 50 mg CBC, BMP 08/11/17 07:15 08/11/17 07:15 cxr - reviewed. Physical Exam. Constitutional: Yes: Anxious, Mild Distress. Cardiovascular: Yes: Regular Rate and Rhythm Respiratory: Yes: Diminished, Rhonchi Gastrointestinal: Yes: Normal Bowel Sounds, Soft. No: Distention, Tenderness Edema: trace. Neuro- Alert and awake. Problem List - Problems (1) UTI (urinary tract infection) Code(s): N39.0 - URINARY TRACT INFECTION, SITE NOT SPECIFIED (2) Atrial fibrillation Code(s): I48.91 - UNSPECIFIED ATRIAL FIBRILLATION Qualifiers: Atrial fibrillation type: chronic Qualified Code(s): I48.2 - Chronic atrial fibrillation (3) H/O aortic valve replacement Code(s): Z95.2 - PRESENCE OF PROSTHETIC HEART VALVE (4) Lung cancer Code(s): C34.90 - MALIGNANT NEOPLASM OF UNSP PART OF UNSP BRONCHUS OR LUNG Qualifiers: Laterality: left Lung location: upper lobe of lung Qualified Code(s): C34.12 - Malignant neoplasm of upper lobe, left bronchus or lung (5) Pneumonia Code(s): J18.9 - PNEUMONIA, UNSPECIFIED ORGANISM Qualifiers: Pneumonia type: due to unspecified organism Laterality: bilateral Lung location: lower lobe of lung Qualified Code(s): J18.9 - Pneumonia, unspecified organism (6) Wound infection Code(s): T14.8 - OTHER INJURY OF UNSPECIFIED BODY REGION L08.9 - LOCAL INFECTION OF THE SKIN AND SUBCUTANEOUS TISSUE, UNSP Assessment/Plan continue present care meds reviewed discussed with pts daughter ct chest u/s legs- r/o dvt-- less likely -- pt on a/c pulmonary to follow will follow. Condition gaurded. Pt is dnr/DI
[2017-08-11] MEDS: CEFTRIAXONE 2 GM in DEXTROSE 5%-WATER 100 ML IVPB SCH (10:52)
[2017-08-11] MEDS: POTASSIUM CHLORIDE TABS 20 MEQ TABLET.ER (FP) PO SCH (13:44)
[2017-08-11] MEDS: FUROSEMIDE 40 MG TABLET (FP) PO SCH (13:44)
[2017-08-11] MEDS: APIXABAN 2.5 MG TABLET PO SCH ×2 (13:45→21:28)
[2017-08-11] MEDS: CARVEDILOL 12.5 MG TABLET (FP) PO SCH (13:45)
[2017-08-11] MEDS: POLYETHYLENE GLYCOL 3350 119 GM BTL PO SCH (14:27)
--- NOTE | 2017-08-11 14:40 | PN ---
Progress Note, Physician History of Present Illness: PULMONARY ALERT,FEELING BETTER,LESS DYSNEIC. O2 SAT 98% ON NASAL O2 - Current Medication List Current Medications: Active Medications Acetaminophen (Tylenol -) 650 mg PO Q6H PRN PRN Reason: FEVER OR PAIN Last Admin: 08/08/17 19:33 Dose: 650 mg Albuterol/Ipratropium (Duoneb -) 1 amp NEB Q4HWA DES Last Admin: 08/11/17 10:35 Dose: 1 amp Alprazolam (Xanax -) 0.25 mg PO Q8H PRN PRN Reason: ANXIETY Last Admin: 08/08/17 19:34 Dose: 0.25 mg Apixaban (Eliquis -) 2.5 mg PO BID DES Last Admin: 08/11/17 13:45 Dose: 2.5 mg Carvedilol (Coreg -) 12.5 mg PO DAILY DES Last Admin: 08/11/17 13:45 Dose: 12.5 mg Collagenase (Santyl -) 1 applic TP DAILY DES Last Admin: 08/10/17 14:57 Dose: 1 applic Furosemide (Lasix -) 40 mg PO DAILY DES Last Admin: 08/11/17 13:44 Dose: 40 mg Guaifenesin (Robitussin -) 10 ml PO Q4H PRN PRN Reason: COUGH Last Admin: 08/11/17 08:21 Dose: 10 ml Ertapenem 1 gm/ Sodium (Chloride) 50 mls @ 50 mls/hr IVPB DAILY DES PRN Reason: Protocol Methylprednisolone Sodium Succinate (Solu-Medrol -) 60 mg IVPB Q6H-IV DES Last Admin: 08/11/17 14:27 Dose: 60 mg Montelukast Sodium (Singulair -) 10 mg PO HS DES Last Admin: 08/10/17 21:30 Dose: 10 mg Polyethylene Glycol (Miralax (For Daily Use) -) 17 gm PO DAILY DES Last Admin: 08/11/17 14:27 Dose: 17 grams Potassium Chloride (K-Dur -) 20 meq PO DAILY DES Last Admin: 08/11/17 13:44 Dose: 20 meq Quetiapine Fumarate (Seroquel -) 100 mg PO HS DES Last Admin: 08/10/17 21:30 Dose: 100 mg Senna (Senna -) 2 tab PO HS PRN PRN Reason: CONSTIPATION Tramadol HCl (Ultram -) 50 mg PO Q6H PRN PRN Reason: BACK PAIN Last Admin: 08/09/17 19:40 Dose: 50 mg - Objective Vital Signs: Vital Signs Temperature 97.9 F 08/11/17 07:02 Pulse Rate 92 H 08/11/17 11:25 Respiratory Rate 30 H 08/11/17 10:00 Blood Pressure 120/90 08/11/17 10:00 O2 Sat by Pulse Oximetry (%) 96 08/11/17 14:10 Constitutional: Yes: Well Nourished, Calm Eyes: Yes: WNL HENT: Yes: WNL Neck: Yes: WNL Cardiovascular: Yes: Pulse Irregular, S1, S2 Respiratory: Yes: Rales (NIC CRACKLES 1/3 UP) Gastrointestinal: Yes: Normal Bowel Sounds, Soft Extremities: Yes: WNL Edema: No Labs: INR, PTT INR 1.51 (0.82-1.09) H 08/08/17 12:15 - ....Imaging Cat Scan: Report Reviewed, Image Reviewed Problem List - Problems (1) H/O aortic valve replacement Code(s): Z95.2 - PRESENCE OF PROSTHETIC HEART VALVE (2) Lung cancer Code(s): C34.90 - MALIGNANT NEOPLASM OF UNSP PART OF UNSP BRONCHUS OR LUNG Qualifiers: Laterality: left Lung location: upper lobe of lung Qualified Code(s): C34.12 - Malignant neoplasm of upper lobe, left bronchus or lung (3) Pneumonitis Code(s): J18.9 - PNEUMONIA, UNSPECIFIED ORGANISM (4) Atrial fibrillation Code(s): I48.91 - UNSPECIFIED ATRIAL FIBRILLATION Qualifiers: Atrial fibrillation type: chronic Qualified Code(s): I48.2 - Chronic atrial fibrillation (5) Dementia Code(s): F03.90 - UNSPECIFIED DEMENTIA WITHOUT BEHAVIORAL DISTURBANCE Qualifiers: Dementia type: unspecified type Dementia behavioral disturbance: without behavioral disturbance Qualified Code(s): F03.90 - Unspecified dementia without behavioral disturbance (6) HTN (hypertension) Code(s): I10 - ESSENTIAL (PRIMARY) HYPERTENSION Qualifiers: Hypertension type: essential hypertension Qualified Code(s): I10 - Essential (primary) hypertension (7) Lung mass Code(s): R91.8 - OTHER NONSPECIFIC ABNORMAL FINDING OF LUNG FIELD (8) Sepsis Code(s): A41.9 - SEPSIS, UNSPECIFIED ORGANISM (9) Acute on chronic respiratory failure with hypoxemia Code(s): J96.21 - ACUTE AND CHRONIC RESPIRATORY FAILURE WITH HYPOXIA Assessment/Plan IMP ACUTE ON CHRONIC HYPOXEMIC RESPIRATORY FAILURE SEPSIS ?,PNEUMONIA LUNG CA STAGE 4 COPD ON O2 S/P AVR AFIB PLAN IV ANTIBIOTICS PER ID IV STEROIDS INHALED BRONCHODILATORS F/U CHEST X-RAYS IVF DR REYNA Problem List - Problems (1) H/O aortic valve replacement Code(s): Z95.2 - PRESENCE OF PROSTHETIC HEART VALVE (2) Lung cancer Code(s): C34.90 - MALIGNANT NEOPLASM OF UNSP PART OF UNSP BRONCHUS OR LUNG Qualifiers: Laterality: left Lung location: upper lobe of lung Qualified Code(s): C34.12 - Malignant neoplasm of upper lobe, left bronchus or lung (3) Pneumonitis Code(s): J18.9 - PNEUMONIA, UNSPECIFIED ORGANISM (4) Atrial fibrillation Code(s): I48.91 - UNSPECIFIED ATRIAL FIBRILLATION Qualifiers: Atrial fibrillation type: chronic Qualified Code(s): I48.2 - Chronic atrial fibrillation (5) Dementia Code(s): F03.90 - UNSPECIFIED DEMENTIA WITHOUT BEHAVIORAL DISTURBANCE Qualifiers: Dementia type: unspecified type Dementia behavioral disturbance: without behavioral disturbance Qualified Code(s): F03.90 - Unspecified dementia without behavioral disturbance (6) HTN (hypertension) Code(s): I10 - ESSENTIAL (PRIMARY) HYPERTENSION Qualifiers: Hypertension type: essential hypertension Qualified Code(s): I10 - Essential (primary) hypertension (7) Lung mass Code(s): R91.8 - OTHER NONSPECIFIC ABNORMAL FINDING OF LUNG FIELD (8) Sepsis Code(s): A41.9 - SEPSIS, UNSPECIFIED ORGANISM (9) Acute on chronic respiratory failure with hypoxemia Code(s): J96.21 - ACUTE AND CHRONIC RESPIRATORY FAILURE WITH HYPOXIA
[2017-08-11] MEDS: COLLAGENASE CLOSTRIDIUM HIST. 30 GRAMS TUBE TP SCH (17:09)
[2017-08-11] MEDS: ERTAPENEM SODIUM 1 GM in SODIUM CHLORIDE 50 ML IVPB SCH (17:09)
[2017-08-11] MEDS: MONTELUKAST NA 10 MG TABLET PO SCH (21:28)
[2017-08-11] MEDS: QUEtiapine FUMARATE 100 MG TABLET (FP) PO SCH (21:28)
[2017-08-11] MEDS ORDERED: SENNOSIDES 8.6MG TABLET (FP) PO PRN (22:00)
[2017-08-12] MEDS: methylPREDNISolone NA SUCC 40 MG/1 ML VIAL IVPB SCH ×4 (02:09→21:48)
[2017-08-12] MEDS: ALBUTEROL SO4 2.5/IPRATROPIUM 0.5 INH SOL 3 ML VIAL.NEB. NEB SCH ×4 (06:54→19:00)
[2017-08-12] MEDS ORDERED: PT OWN MED DRAWER 7, Y5N ONE (09:05)
[2017-08-12] MEDS: POTASSIUM CHLORIDE TABS 20 MEQ TABLET.ER (FP) PO SCH (09:09)
[2017-08-12] MEDS: ERTAPENEM SODIUM 1 GM in SODIUM CHLORIDE 50 ML IVPB SCH (09:09)
[2017-08-12] MEDS: CARVEDILOL 12.5 MG TABLET (FP) PO SCH (09:09)
[2017-08-12] MEDS: APIXABAN 2.5 MG TABLET PO SCH ×2 (09:09→21:48)
[2017-08-12] MEDS: FUROSEMIDE 40 MG TABLET (FP) PO SCH (09:09)
[2017-08-12] MEDS: COLLAGENASE CLOSTRIDIUM HIST. 30 GRAMS TUBE TP SCH (09:11)
[2017-08-12] MEDS: POLYETHYLENE GLYCOL 3350 119 GM BTL PO SCH (09:16)
--- NOTE | 2017-08-12 09:37 | PN ---
Progress Note (short form) - Note Progress Note: Sitting on the edge of the bed. Awake and alert. Mildly tachypneic on 4 L NC with saturation 94%. Reports some mild subjective improvement in breathing. Doppler : no DVT right / Bakers cyst left CT MAHENDRA mass with likely associated post obstructive consolidation / bilateral pleural effusions / increase in right lung nodularity. Intake & Output 08/09/17 08/10/17 08/11/17 08/12/17 23:59 23:59 23:59 23:59 Intake Total 2954 1407 950 250 Balance 2954 1407 950 250 Last Vital Signs Temp Pulse Resp BP Pulse Ox 97.7 F 100 H 20 138/78 96 08/12/17 02:00 08/12/17 02:00 08/12/17 02:00 08/11/17 22:00 08/11/17 21:00 Active Medications Acetaminophen (Tylenol -) 650 mg PO Q6H PRN PRN Reason: FEVER OR PAIN Last Admin: 08/08/17 19:33 Dose: 650 mg Albuterol/Ipratropium (Duoneb -) 1 amp NEB Q4HWA [facility] Last Admin: 08/12/17 06:54 Dose: 1 amp Alprazolam (Xanax -) 0.25 mg PO Q8H PRN PRN Reason: ANXIETY Last Admin: 08/08/17 19:34 Dose: 0.25 mg Apixaban (Eliquis -) 2.5 mg PO BID [facility] Last Admin: 08/12/17 09:09 Dose: 2.5 mg Carvedilol (Coreg -) 12.5 mg PO DAILY [facility] Last Admin: 08/12/17 09:09 Dose: 12.5 mg Collagenase (Santyl -) 1 applic TP DAILY [facility] Last Admin: 08/12/17 09:11 Dose: 1 applic Furosemide (Lasix -) 40 mg PO DAILY [facility] Last Admin: 08/12/17 09:09 Dose: 40 mg Guaifenesin (Robitussin -) 10 ml PO Q4H PRN PRN Reason: COUGH Last Admin: 08/11/17 08:21 Dose: 10 ml Ertapenem 1 gm/ Sodium (Chloride) 50 mls @ 50 mls/hr IVPB DAILY [facility] PRN Reason: Protocol Last Admin: 08/12/17 09:09 Dose: 50 mls/hr Methylprednisolone Sodium Succinate (Solu-Medrol -) 60 mg IVPB Q6H-IV [facility] Last Admin: 08/12/17 08:44 Dose: 60 mg Montelukast Sodium (Singulair -) 10 mg PO HS [facility] Last Admin: 08/11/17 21:28 Dose: 10 mg Polyethylene Glycol (Miralax (For Daily Use) -) 17 gm PO DAILY [facility] Last Admin: 08/12/17 09:16 Dose: 17 grams Potassium Chloride (K-Dur -) 20 meq PO DAILY [facility] Last Admin: 08/12/17 09:09 Dose: 20 meq Quetiapine Fumarate (Seroquel -) 100 mg PO HS [facility] Last Admin: 08/11/17 21:28 Dose: 100 mg Senna (Senna -) 2 tab PO HS PRN PRN Reason: CONSTIPATION Tramadol HCl (Ultram -) 50 mg PO Q6H PRN PRN Reason: BACK PAIN Last Admin: 08/09/17 19:40 Dose: 50 mg Constitutional: Yes: Awake and alert, mildly tachypneic at rest Eyes: Yes: WNL HENT: Yes: WNL Neck: Yes: WNL Cardiovascular: Yes: Pulse Irregular, S1, S2 Respiratory: Yes: bilateral coarse rhonchi, no wheeze heard Gastrointestinal: Yes: Normal Bowel Sounds, Soft Extremities: Yes: WNL Edema: Yes Labs: Problem List - Problems (1) H/O aortic valve replacement Code(s): Z95.2 - PRESENCE OF PROSTHETIC HEART VALVE (2) Lung cancer Code(s): C34.90 - MALIGNANT NEOPLASM OF UNSP PART OF UNSP BRONCHUS OR LUNG Qualifiers: Laterality: left Lung location: upper lobe of lung Qualified Code(s): C34.12 - Malignant neoplasm of upper lobe, left bronchus or lung (3) Pneumonitis Code(s): J18.9 - PNEUMONIA, UNSPECIFIED ORGANISM (4) Atrial fibrillation Code(s): I48.91 - UNSPECIFIED ATRIAL FIBRILLATION Qualifiers: Atrial fibrillation type: chronic Qualified Code(s): I48.2 - Chronic atrial fibrillation (5) Dementia Code(s): F03.90 - UNSPECIFIED DEMENTIA WITHOUT BEHAVIORAL DISTURBANCE Qualifiers: Dementia type: unspecified type Dementia behavioral disturbance: without behavioral disturbance Qualified Code(s): F03.90 - Unspecified dementia without behavioral disturbance (6) HTN (hypertension) Code(s): I10 - ESSENTIAL (PRIMARY) HYPERTENSION Qualifiers: Hypertension type: essential hypertension Qualified Code(s): I10 - Essential (primary) hypertension (7) Lung mass Code(s): R91.8 - OTHER NONSPECIFIC ABNORMAL FINDING OF LUNG FIELD (8) Sepsis Code(s): A41.9 - SEPSIS, UNSPECIFIED ORGANISM (9) Acute on chronic respiratory failure with hypoxemia Code(s): J96.21 - ACUTE AND CHRONIC RESPIRATORY FAILURE WITH HYPOXIA Assessment/Plan IMP ACUTE ON CHRONIC HYPOXEMIC RESPIRATORY FAILURE SEPSIS LUNG CA STAGE 4 COPD ON O2 S/P AVR AFIB PLAN IV ANTIBIOTICS PER ID IV STEROIDS -> start taper tomorrow if stable/improved INHALED BRONCHODILATORS WOULD CONTINUE LASIX THORACENTESIS AT THIS POINT MAY NOT PROVIDE MUCH IMPROVEMENT CONTINUE AC DR VELAZCO
--- NOTE | 2017-08-12 10:49 | PN ---
Progress Note, Physician Chief Complaint: feeling better today Has cough No increased SOB - Current Medication List Current Medications: Active Medications Acetaminophen (Tylenol -) 650 mg PO Q6H PRN PRN Reason: FEVER OR PAIN Last Admin: 08/08/17 19:33 Dose: 650 mg Albuterol/Ipratropium (Duoneb -) 1 amp NEB Q4HWA [facility] Last Admin: 08/12/17 06:54 Dose: 1 amp Alprazolam (Xanax -) 0.25 mg PO Q8H PRN PRN Reason: ANXIETY Last Admin: 08/08/17 19:34 Dose: 0.25 mg Apixaban (Eliquis -) 2.5 mg PO BID [facility] Last Admin: 08/12/17 09:09 Dose: 2.5 mg Carvedilol (Coreg -) 12.5 mg PO DAILY [facility] Last Admin: 08/12/17 09:09 Dose: 12.5 mg Collagenase (Santyl -) 1 applic TP DAILY [facility] Last Admin: 08/12/17 09:11 Dose: 1 applic Furosemide (Lasix -) 40 mg PO DAILY [facility] Last Admin: 08/12/17 09:09 Dose: 40 mg Guaifenesin (Robitussin -) 10 ml PO Q4H PRN PRN Reason: COUGH Last Admin: 08/11/17 08:21 Dose: 10 ml Ertapenem 1 gm/ Sodium (Chloride) 50 mls @ 50 mls/hr IVPB DAILY [facility] PRN Reason: Protocol Last Admin: 08/12/17 09:09 Dose: 50 mls/hr Methylprednisolone Sodium Succinate (Solu-Medrol -) 60 mg IVPB Q6H-IV [facility] Last Admin: 08/12/17 08:44 Dose: 60 mg Montelukast Sodium (Singulair -) 10 mg PO HS [facility] Last Admin: 08/11/17 21:28 Dose: 10 mg Polyethylene Glycol (Miralax (For Daily Use) -) 17 gm PO DAILY [facility] Last Admin: 08/12/17 09:16 Dose: 17 grams Potassium Chloride (K-Dur -) 20 meq PO DAILY [facility] Last Admin: 08/12/17 09:09 Dose: 20 meq Quetiapine Fumarate (Seroquel -) 100 mg PO HS [facility] Last Admin: 08/11/17 21:28 Dose: 100 mg Senna (Senna -) 2 tab PO HS PRN PRN Reason: CONSTIPATION Tramadol HCl (Ultram -) 50 mg PO Q6H PRN PRN Reason: BACK PAIN Last Admin: 08/09/17 19:40 Dose: 50 mg - Objective Vital Signs: Vital Signs Temperature 97.7 F 08/12/17 02:00 Pulse Rate 100 H 08/12/17 02:00 Respiratory Rate 20 08/12/17 02:00 Blood Pressure 138/78 08/11/17 22:00 O2 Sat by Pulse Oximetry (%) 96 08/11/17 21:00 Constitutional: Yes: No Distress, Calm Cardiovascular: Yes: Regular Rate and Rhythm Respiratory: Yes: Diminished, Rhonchi Gastrointestinal: Yes: Normal Bowel Sounds, Soft. No: Tenderness Edema: No Labs: INR, PTT INR 1.51 (0.82-1.09) H 08/08/17 12:15 Problem List - Problems (1) UTI (urinary tract infection) Code(s): N39.0 - URINARY TRACT INFECTION, SITE NOT SPECIFIED (2) Atrial fibrillation Code(s): I48.91 - UNSPECIFIED ATRIAL FIBRILLATION Qualifiers: Atrial fibrillation type: chronic Qualified Code(s): I48.2 - Chronic atrial fibrillation (3) H/O aortic valve replacement Code(s): Z95.2 - PRESENCE OF PROSTHETIC HEART VALVE (4) Lung cancer Code(s): C34.90 - MALIGNANT NEOPLASM OF UNSP PART OF UNSP BRONCHUS OR LUNG Qualifiers: Laterality: left Lung location: upper lobe of lung Qualified Code(s): C34.12 - Malignant neoplasm of upper lobe, left bronchus or lung (5) Pneumonia Code(s): J18.9 - PNEUMONIA, UNSPECIFIED ORGANISM Qualifiers: Pneumonia type: due to unspecified organism Laterality: bilateral Lung location: lower lobe of lung Qualified Code(s): J18.9 - Pneumonia, unspecified organism (6) Wound infection Code(s): T14.8 - OTHER INJURY OF UNSPECIFIED BODY REGION L08.9 - LOCAL INFECTION OF THE SKIN AND SUBCUTANEOUS TISSUE, UNSP Assessment/Plan PLAN WBC decreased iv fluids dc iv antibiotics per ID Blood cultures -- negative on Solumedrol nebs scheduled-- will change to Q6H pt on Eliquis for Afib DVT propylaxis-- Eliquis
[2017-08-12] MEDS ORDERED: ERTAPENEM SODIUM 1 GM in SODIUM CHLORIDE 50 ML IVPB SCH (11:00)
--- NOTE | 2017-08-12 12:37 | EKG ---
Test Reason : Blood Pressure : / mmHG Vent. Rate : 090 BPM Atrial Rate : 107 BPM P-R Int : 000 ms QRS Dur : 084 ms QT Int : 348 ms P-R-T Axes : 000 026 038 degrees QTc Int : 425 ms POOR DATA QUALITY, INTERPRETATION MAY BE ADVERSELY AFFECTED BASELINE ARTIFACTS ATRIAL FIBRILLATION NONSPECIFIC T WAVE ABNORMALITY ABNORMAL ECG WHEN COMPARED WITH ECG OF 15-JUN-2017 23:35, NONSPECIFIC T WAVE ABNORMALITY, WORSE IN INFERIOR LEADS NONSPECIFIC T WAVE ABNORMALITY NOW EVIDENT IN LATERAL LEADS REPEAT EKG IF CLINICALLY INDICATED Confirmed by TAMMY SALCEDO MD ([id number] on 08/12/2017 12:37:27 PM Referred By: Confirmed By:TAMMY SALCEDO MD
[2017-08-12] MEDS: PANTOPRAZOLE 40 MG TABLET (FP) PO SCH (14:17)
--- NOTE | 2017-08-12 15:08 | PN ---
Progress Note, Physician History of Present Illness: OOB in chair Much more awake and alert Offers no complaints No c/o dysuria Breathing non-labored - Current Medication List Current Medications: Active Medications Acetaminophen (Tylenol -) 650 mg PO Q6H PRN PRN Reason: FEVER OR PAIN Last Admin: 08/08/17 19:33 Dose: 650 mg Albuterol/Ipratropium (Duoneb -) 1 amp NEB QIDR [facility] Last Admin: 08/12/17 11:20 Dose: Not Given Alprazolam (Xanax -) 0.25 mg PO Q8H PRN PRN Reason: ANXIETY Last Admin: 08/08/17 19:34 Dose: 0.25 mg Apixaban (Eliquis -) 2.5 mg PO BID [facility] Last Admin: 08/12/17 09:09 Dose: 2.5 mg Carvedilol (Coreg -) 12.5 mg PO DAILY [facility] Last Admin: 08/12/17 09:09 Dose: 12.5 mg Collagenase (Santyl -) 1 applic TP DAILY [facility] Last Admin: 08/12/17 09:11 Dose: 1 applic Furosemide (Lasix -) 40 mg PO DAILY [facility] Last Admin: 08/12/17 09:09 Dose: 40 mg Guaifenesin (Robitussin -) 10 ml PO Q4H PRN PRN Reason: COUGH Last Admin: 08/11/17 08:21 Dose: 10 ml Ertapenem 1 gm/ Sodium (Chloride) 50 mls @ 50 mls/hr IVPB DAILY [facility] PRN Reason: Protocol Last Admin: 08/12/17 09:09 Dose: 50 mls/hr Methylprednisolone Sodium Succinate (Solu-Medrol -) 60 mg IVPB Q6H-IV [facility] Last Admin: 08/12/17 14:17 Dose: 60 mg Montelukast Sodium (Singulair -) 10 mg PO HS [facility] Last Admin: 08/11/17 21:28 Dose: 10 mg Pantoprazole Sodium (Protonix -) 40 mg PO DAILY [facility] Last Admin: 08/12/17 14:17 Dose: 40 mg Polyethylene Glycol (Miralax (For Daily Use) -) 17 gm PO DAILY [facility] Last Admin: 08/12/17 09:16 Dose: 17 grams Potassium Chloride (K-Dur -) 20 meq PO DAILY [facility] Last Admin: 08/12/17 09:09 Dose: 20 meq Quetiapine Fumarate (Seroquel -) 100 mg PO HS [facility] Last Admin: 08/11/17 21:28 Dose: 100 mg Senna (Senna -) 2 tab PO HS PRN PRN Reason: CONSTIPATION Tramadol HCl (Ultram -) 50 mg PO Q6H PRN PRN Reason: BACK PAIN Last Admin: 08/09/17 19:40 Dose: 50 mg - Objective Vital Signs: Vital Signs Temperature 97.7 F 08/12/17 12:17 Pulse Rate 94 H 08/12/17 12:17 Respiratory Rate 20 08/12/17 12:17 Blood Pressure 134/69 08/12/17 12:17 O2 Sat by Pulse Oximetry (%) 96 08/11/17 21:00 Constitutional: Yes: No Distress, Obese Cardiovascular: Yes: Regular Rate and Rhythm, S1, S2 Respiratory: Yes: Rhonchi Gastrointestinal: Yes: Normal Bowel Sounds, Soft. No: Tenderness Edema: Yes Labs: INR, PTT INR 1.51 (0.82-1.09) H 08/08/17 12:15 Assessment/Plan Exacerbation COPD Stage IV lung ca Possible post-obstructive pneumonia UTI ESBL PCN allergy Continue ertapenem Discussed with family at bedside Contact precautions
[2017-08-12] MEDS: QUEtiapine FUMARATE 100 MG TABLET (FP) PO SCH (21:48)
[2017-08-12] MEDS: MONTELUKAST NA 10 MG TABLET PO SCH (21:48)
[2017-08-13] MEDS: ALBUTEROL SO4 2.5/IPRATROPIUM 0.5 INH SOL 3 ML VIAL.NEB. NEB SCH ×4 (00:15→18:30)
[2017-08-13] MEDS: methylPREDNISolone NA SUCC 40 MG/1 ML VIAL IVPB SCH ×4 (02:29→20:37)
[2017-08-13] MEDS: guaiFENesin 200 MG/10 ML 10 ML UNIT-DOSE CUPS PO PRN ×2 (03:01→09:23)
[2017-08-13 07:18] LABS: MCH 31.7 pg (25.7-33.7); MCHC 34.1 g/dl (32.0-36.0); MEAN CELL VOLUME 92.9 fl (80-96); MEAN PLT VOLUME 9.2 fl (7.5-11.1); PLATELET COUNT 154 K/MM3 (134-434); RDW 15.8 % (11.6-15.6); WHITE BLOOD COUNT 10.7 K/mm3 (4.0-10.0)
[2017-08-13 07:31] LABS: ANION GAP 9 (8-16); CO2 32 mmol/L (21-32); GLUCOSE,RANDOM 153 mg/dL (74-106)
[2017-08-13] MEDS ORDERED: PT OWN MED DRAWER 7, Y5N ONE (09:01)
[2017-08-13] MEDS: POTASSIUM CHLORIDE TABS 20 MEQ TABLET.ER (FP) PO SCH (09:19)
[2017-08-13] MEDS: FUROSEMIDE 40 MG TABLET (FP) PO SCH (09:19)
[2017-08-13] MEDS: APIXABAN 2.5 MG TABLET PO SCH ×2 (09:19→21:00)
[2017-08-13] MEDS: CARVEDILOL 12.5 MG TABLET (FP) PO SCH (09:19)
[2017-08-13] MEDS: PANTOPRAZOLE 40 MG TABLET (FP) PO SCH (09:21)
[2017-08-13] MEDS: POLYETHYLENE GLYCOL 3350 119 GM BTL PO SCH (09:21)
[2017-08-13] MEDS: ERTAPENEM SODIUM 1 GM in SODIUM CHLORIDE 50 ML IVPB SCH (10:02)
--- NOTE | 2017-08-13 10:45 | PN ---
Progress Note (short form) - Note Progress Note: PULMONARY FAMILY PRESENT "BAD NIGHT" COUGH/SOB/RESTLESS AFEBRILE/SPO2 85% 4L/M ANICTERIC DIMINISHED BREATH SOUNDS B/L S1S2 IRREG BS+ RIGHT LOWER EXT EDEMA CALF B/L LOWER EXT VENOUS DUPLEX NEGATIVE LABS/IMAGING/MEDS/NOTES/MICRO REVIEWED IMP ACUTE ON CHRONIC HYPOXEMIC RESPIRATORY FAILURE SEPSIS LUNG CA STAGE 4 COPD ON O2 S/P AVR AFIB PLAN IV ANTIBIOTICS IV STEROIDS TO CONTINUE INCREASE FIO2 TO KEEP SAT GREATER THAN 90% INHALED BRONCHODILATORS WOULD CONTINUE LASIX CHECK CXR Eduardo WILLARD MD
--- NOTE | 2017-08-13 12:11 | PN ---
Progress Note, Physician Chief Complaint: pt had a bad night last night did not sleep well due to SOB Sitting up in chair, gets sleepy in chair Daughter at bedside - Current Medication List Current Medications: Active Medications Acetaminophen (Tylenol -) 650 mg PO Q6H PRN PRN Reason: FEVER OR PAIN Last Admin: 08/08/17 19:33 Dose: 650 mg Albuterol/Ipratropium (Duoneb -) 1 amp NEB QIDR [facility] Last Admin: 08/13/17 11:38 Dose: 1 amp Apixaban (Eliquis -) 2.5 mg PO BID [facility] Last Admin: 08/13/17 09:19 Dose: 2.5 mg Carvedilol (Coreg -) 12.5 mg PO DAILY [facility] Last Admin: 08/13/17 09:19 Dose: 12.5 mg Collagenase (Santyl -) 1 applic TP DAILY [facility] Last Admin: 08/12/17 09:11 Dose: 1 applic Furosemide (Lasix -) 40 mg PO DAILY [facility] Last Admin: 08/13/17 09:19 Dose: 40 mg Guaifenesin (Robitussin -) 10 ml PO Q4H PRN PRN Reason: COUGH Last Admin: 08/13/17 09:23 Dose: 10 ml Ertapenem 1 gm/ Sodium (Chloride) 50 mls @ 50 mls/hr IVPB DAILY [facility] PRN Reason: Protocol Last Admin: 08/13/17 10:02 Dose: 50 mls/hr Methylprednisolone Sodium Succinate (Solu-Medrol -) 60 mg IVPB Q6H-IV [facility] Last Admin: 08/13/17 09:21 Dose: 60 mg Montelukast Sodium (Singulair -) 10 mg PO HS [facility] Last Admin: 08/12/17 21:48 Dose: 10 mg Pantoprazole Sodium (Protonix -) 40 mg PO DAILY [facility] Last Admin: 08/13/17 09:21 Dose: 40 mg Polyethylene Glycol (Miralax (For Daily Use) -) 17 gm PO DAILY [facility] Last Admin: 08/13/17 09:21 Dose: 17 grams Potassium Chloride (K-Dur -) 20 meq PO DAILY [facility] Last Admin: 08/13/17 09:19 Dose: 20 meq Quetiapine Fumarate (Seroquel -) 100 mg PO HS [facility] Last Admin: 08/12/17 21:48 Dose: 100 mg Senna (Senna -) 2 tab PO HS PRN PRN Reason: CONSTIPATION - Objective Vital Signs: Vital Signs Temperature 98.1 F 08/13/17 07:34 Pulse Rate 78 08/13/17 11:38 Respiratory Rate 20 08/13/17 07:34 Blood Pressure 134/105 08/13/17 07:34 O2 Sat by Pulse Oximetry (%) 92 L 08/13/17 11:38 Constitutional: Yes: Anxious Cardiovascular: Yes: Pulse Irregular Respiratory: Yes: Diminished, Rhonchi, SOB Gastrointestinal: Yes: Normal Bowel Sounds, Soft. No: Distention, Tenderness Edema: Yes Labs: CBC, BMP 08/13/17 06:00 08/13/17 06:00 INR, PTT INR 1.51 (0.82-1.09) H 08/08/17 12:15 Problem List - Problems (1) UTI (urinary tract infection) Code(s): N39.0 - URINARY TRACT INFECTION, SITE NOT SPECIFIED (2) Atrial fibrillation Code(s): I48.91 - UNSPECIFIED ATRIAL FIBRILLATION Qualifiers: Atrial fibrillation type: chronic Qualified Code(s): I48.2 - Chronic atrial fibrillation (3) H/O aortic valve replacement Code(s): Z95.2 - PRESENCE OF PROSTHETIC HEART VALVE (4) Lung cancer Code(s): C34.90 - MALIGNANT NEOPLASM OF UNSP PART OF UNSP BRONCHUS OR LUNG Qualifiers: Laterality: left Lung location: upper lobe of lung Qualified Code(s): C34.12 - Malignant neoplasm of upper lobe, left bronchus or lung (5) Pneumonia Code(s): J18.9 - PNEUMONIA, UNSPECIFIED ORGANISM Qualifiers: Pneumonia type: due to unspecified organism Laterality: bilateral Lung location: lower lobe of lung Qualified Code(s): J18.9 - Pneumonia, unspecified organism (6) Wound infection Code(s): T14.8 - OTHER INJURY OF UNSPECIFIED BODY REGION L08.9 - LOCAL INFECTION OF THE SKIN AND SUBCUTANEOUS TISSUE, UNSP (7) UTI (urinary tract infection) with pyuria Code(s): N39.0 - URINARY TRACT INFECTION, SITE NOT SPECIFIED Assessment/Plan PLAN maintain on same dose of Solumedrol CXR noted iv fluids dc iv antibiotics per ID Blood cultures -- negative nebs scheduled-- will change to Q6H pt on Eliquis for Afib spoke with daughter Apurva at length-- discussed about CT findings and pt's poor prognosis -- she is stage 4 Lung Ca- post obstructive pneumonia and pleural effusion- not a candidate for thoracentesis. At this point , pt will need hospice care-- daughter wishes to speak with palliative care team and would like to know more about home hospice . DVT propylaxis-- Christian
--- NOTE | 2017-08-13 12:20 | PN ---
Progress Note, Physician History of Present Illness: OOB in chair Offers no complaints Denies dysuria Denies dyspnea or chest pain, but appears slightly tachypneic at rest on nasal cannula No fever/ chills - Current Medication List Current Medications: Active Medications Acetaminophen (Tylenol -) 650 mg PO Q6H PRN PRN Reason: FEVER OR PAIN Last Admin: 08/08/17 19:33 Dose: 650 mg Albuterol/Ipratropium (Duoneb -) 1 amp NEB QIDR [facility] Last Admin: 08/13/17 11:38 Dose: 1 amp Apixaban (Eliquis -) 2.5 mg PO BID [facility] Last Admin: 08/13/17 09:19 Dose: 2.5 mg Carvedilol (Coreg -) 12.5 mg PO DAILY [facility] Last Admin: 08/13/17 09:19 Dose: 12.5 mg Collagenase (Santyl -) 1 applic TP DAILY [facility] Last Admin: 08/12/17 09:11 Dose: 1 applic Furosemide (Lasix -) 40 mg PO DAILY [facility] Last Admin: 08/13/17 09:19 Dose: 40 mg Guaifenesin (Robitussin -) 10 ml PO Q4H PRN PRN Reason: COUGH Last Admin: 08/13/17 09:23 Dose: 10 ml Ertapenem 1 gm/ Sodium (Chloride) 50 mls @ 50 mls/hr IVPB DAILY [facility] PRN Reason: Protocol Last Admin: 08/13/17 10:02 Dose: 50 mls/hr Methylprednisolone Sodium Succinate (Solu-Medrol -) 60 mg IVPB Q6H-IV [facility] Last Admin: 08/13/17 09:21 Dose: 60 mg Montelukast Sodium (Singulair -) 10 mg PO HS [facility] Last Admin: 08/12/17 21:48 Dose: 10 mg Pantoprazole Sodium (Protonix -) 40 mg PO DAILY [facility] Last Admin: 08/13/17 09:21 Dose: 40 mg Polyethylene Glycol (Miralax (For Daily Use) -) 17 gm PO DAILY [facility] Last Admin: 08/13/17 09:21 Dose: 17 grams Potassium Chloride (K-Dur -) 20 meq PO DAILY [facility] Last Admin: 08/13/17 09:19 Dose: 20 meq Quetiapine Fumarate (Seroquel -) 100 mg PO HS [facility] Last Admin: 08/12/17 21:48 Dose: 100 mg Senna (Senna -) 2 tab PO HS PRN PRN Reason: CONSTIPATION - Objective Vital Signs: Vital Signs Temperature 98.1 F 08/13/17 07:34 Pulse Rate 78 08/13/17 11:38 Respiratory Rate 20 08/13/17 07:34 Blood Pressure 134/105 08/13/17 07:34 O2 Sat by Pulse Oximetry (%) 92 L 08/13/17 11:38 Constitutional: Yes: No Distress, Obese Cardiovascular: Yes: Regular Rate and Rhythm, S1, S2 Respiratory: Yes: Rhonchi Gastrointestinal: Yes: Normal Bowel Sounds, Soft, Abdomen, Obese. No: Tenderness Edema: Yes Labs: CBC, BMP 08/13/17 06:00 08/13/17 06:00 INR, PTT INR 1.51 (0.82-1.09) H 08/08/17 12:15 Assessment/Plan Exacerbation COPD Stage IV lung ca Possible post-obstructive pneumonia UTI ESBL PCN allergy Continue ertapenem Discussed with daughter at bedside Contact precautions
[2017-08-13] MEDS: COLLAGENASE CLOSTRIDIUM HIST. 30 GRAMS TUBE TP SCH (14:30)
[2017-08-13] MEDS: QUEtiapine FUMARATE 100 MG TABLET (FP) PO SCH (21:00)
[2017-08-13] MEDS: MONTELUKAST NA 10 MG TABLET PO SCH (21:00)
[2017-08-13] MEDS ORDERED: MAG HYDROX/ALH/SMC/DPHA/LIDO 240 ML MOUTHWASH MM PRN (21:12)
[2017-08-14] MEDS: methylPREDNISolone NA SUCC 40 MG/1 ML VIAL IVPB SCH ×3 (02:08→18:06)
[2017-08-14] MEDS: ALBUTEROL SO4 2.5/IPRATROPIUM 0.5 INH SOL 3 ML VIAL.NEB. NEB SCH ×4 (06:59→18:25)
[2017-08-14 07:54] LABS: MCH 31.8 pg (25.7-33.7); MCHC 34.1 g/dl (32.0-36.0); MEAN CELL VOLUME 93.2 fl (80-96); MEAN PLT VOLUME 9.3 fl (7.5-11.1); PLATELET COUNT 153 K/MM3 (134-434); RDW 16.7 % (11.6-15.6); WHITE BLOOD COUNT 9.2 K/mm3 (4.0-10.0)
[2017-08-14 08:29] LABS: ANION GAP 12 (8-16); CALCIUM 8.7 mg/dL (8.5-10.1); CO2 33 mmol/L (21-32); GLUCOSE,RANDOM 170 mg/dL (74-106)
[2017-08-14 08:31] LABS: CREATININE 0.8 mg/dL (0.55-1.02)
--- NOTE | 2017-08-14 08:54 | PN ---
Progress Note (short form) - Note Progress Note: Still with some congested cough. BM this AM. Remains mildly tachypneic on NC O2, saturation in the 90's. No hemoptysis. Intake & Output 08/11/17 08/12/17 08/13/17 08/14/17 23:59 23:59 23:59 23:59 Intake Total 950 1100 850 100 Balance 950 1100 850 100 Last Vital Signs Temp Pulse Resp BP Pulse Ox 97.5 F L 100 H 20 126/68 92 L 08/14/17 06:26 08/14/17 06:26 08/14/17 06:26 08/14/17 06:26 08/13/17 20:49 Active Medications Acetaminophen (Tylenol -) 650 mg PO Q6H PRN PRN Reason: FEVER OR PAIN Last Admin: 08/08/17 19:33 Dose: 650 mg Albuterol/Ipratropium (Duoneb -) 1 amp NEB QIDR [facility] Last Admin: 08/14/17 06:59 Dose: 1 amp Apixaban (Eliquis -) 2.5 mg PO BID [facility] Last Admin: 08/13/17 21:00 Dose: 2.5 mg Carvedilol (Coreg -) 12.5 mg PO DAILY [facility] Last Admin: 08/13/17 09:19 Dose: 12.5 mg Collagenase (Santyl -) 1 applic TP DAILY [facility] Last Admin: 08/13/17 14:30 Dose: 1 applic Furosemide (Lasix -) 40 mg PO DAILY [facility] Last Admin: 08/13/17 09:19 Dose: 40 mg Guaifenesin (Robitussin -) 10 ml PO Q4H PRN PRN Reason: COUGH Last Admin: 08/13/17 09:23 Dose: 10 ml Ertapenem 1 gm/ Sodium (Chloride) 50 mls @ 50 mls/hr IVPB DAILY DES PRN Reason: Protocol Last Admin: 08/13/17 10:02 Dose: 50 mls/hr Lidocaine/Aluminum/Magnesium/Simeth (Magic Mouthwash *Sjr Formula* -) 5 ml MM Q8H PRN Methylprednisolone Sodium Succinate (Solu-Medrol -) 60 mg IVPB Q6H-IV [facility] Last Admin: 08/14/17 02:08 Dose: 60 mg Montelukast Sodium (Singulair -) 10 mg PO HS [facility] Last Admin: 08/13/17 21:00 Dose: 10 mg Pantoprazole Sodium (Protonix -) 40 mg PO DAILY [facility] Last Admin: 08/13/17 09:21 Dose: 40 mg Polyethylene Glycol (Miralax (For Daily Use) -) 17 gm PO DAILY [facility] Last Admin: 08/13/17 09:21 Dose: 17 grams Potassium Chloride (K-Dur -) 20 meq PO DAILY [facility] Last Admin: 08/13/17 09:19 Dose: 20 meq Quetiapine Fumarate (Seroquel -) 100 mg PO [facility] Last Admin: 08/13/17 21:00 Dose: 100 mg Senna (Senna -) 2 tab PO HS PRN PRN Reason: CONSTIPATION Constitutional: Yes: Awake and alert, mildly tachypneic at rest Eyes: Yes: WNL HENT: Yes: WNL Neck: Yes: WNL Cardiovascular: Yes: Pulse Irregular, S1, S2 Respiratory: Yes: bilateral coarse rhonchi, no wheeze heard Gastrointestinal: Yes: Normal Bowel Sounds, Soft Extremities: Yes: WNL Edema: Yes Labs: Laboratory Results - last 24 hr 08/14/17 08/14/17 06:00 06:00 WBC 9.2 RBC 3.09 L Hgb 9.8 L Hct 28.8 L MCV 93.2 MCH 31.8 MCHC 34.1 RDW 16.7 H Plt Count 153 MPV 9.3 Sodium 141 Potassium 3.9 Chloride 96 L Carbon Dioxide 33 H Anion Gap 12 BUN 35 H Creatinine 0.8 Random Glucose 170 H Calcium 8.7 Problem List - Problems (1) H/O aortic valve replacement Code(s): Z95.2 - PRESENCE OF PROSTHETIC HEART VALVE (2) Lung cancer Code(s): C34.90 - MALIGNANT NEOPLASM OF UNSP PART OF UNSP BRONCHUS OR LUNG Qualifiers: Laterality: left Lung location: upper lobe of lung Qualified Code(s): C34.12 - Malignant neoplasm of upper lobe, left bronchus or lung (3) Pneumonitis Code(s): J18.9 - PNEUMONIA, UNSPECIFIED ORGANISM (4) Atrial fibrillation Code(s): I48.91 - UNSPECIFIED ATRIAL FIBRILLATION Qualifiers: Atrial fibrillation type: chronic Qualified Code(s): I48.2 - Chronic atrial fibrillation (5) Dementia Code(s): F03.90 - UNSPECIFIED DEMENTIA WITHOUT BEHAVIORAL DISTURBANCE Qualifiers: Dementia type: unspecified type Dementia behavioral disturbance: without behavioral disturbance Qualified Code(s): F03.90 - Unspecified dementia without behavioral disturbance (6) HTN (hypertension) Code(s): I10 - ESSENTIAL (PRIMARY) HYPERTENSION Qualifiers: Hypertension type: essential hypertension Qualified Code(s): I10 - Essential (primary) hypertension (7) Lung mass Code(s): R91.8 - OTHER NONSPECIFIC ABNORMAL FINDING OF LUNG FIELD (8) Sepsis Code(s): A41.9 - SEPSIS, UNSPECIFIED ORGANISM (9) Acute on chronic respiratory failure with hypoxemia Code(s): J96.21 - ACUTE AND CHRONIC RESPIRATORY FAILURE WITH HYPOXIA Assessment/Plan IMP ACUTE ON CHRONIC HYPOXEMIC RESPIRATORY FAILURE SEPSIS LUNG CA STAGE 4 COPD ON O2 S/P AVR AFIB PLAN IV ANTIBIOTICS PER ID IV STEROIDS -> TAPER TODAY INHALED BRONCHODILATORS LASIX DO NOT FEEL THORACENTESIS AT THIS POINT WOULD PROVIDE MUCH IMPROVEMENT AC HOME HOSPICE BEING CONSIDERED DR VELAZCO
[2017-08-14] MEDS ORDERED: PT OWN MED DRAWER 7, Y5N ONE (09:00)
[2017-08-14] MEDS: APIXABAN 2.5 MG TABLET PO SCH ×2 (09:08→21:26)
[2017-08-14] MEDS: CARVEDILOL 12.5 MG TABLET (FP) PO SCH (09:09)
[2017-08-14] MEDS: FUROSEMIDE 40 MG TABLET (FP) PO SCH (09:09)
[2017-08-14] MEDS: PANTOPRAZOLE 40 MG TABLET (FP) PO SCH (09:09)
[2017-08-14] MEDS: POTASSIUM CHLORIDE TABS 20 MEQ TABLET.ER (FP) PO SCH (09:09)
[2017-08-14] MEDS: POLYETHYLENE GLYCOL 3350 119 GM BTL PO SCH (09:09)
[2017-08-14] MEDS: COLLAGENASE CLOSTRIDIUM HIST. 30 GRAMS TUBE TP SCH (09:10)
--- NOTE | 2017-08-14 09:40 | PN ---
Progress Note, Physician Chief Complaint: did not sleep well last night SOB on ambulation daughter at bedside - Current Medication List Current Medications: Active Medications Acetaminophen (Tylenol -) 650 mg PO Q6H PRN PRN Reason: FEVER OR PAIN Last Admin: 08/08/17 19:33 Dose: 650 mg Albuterol/Ipratropium (Duoneb -) 1 amp NEB QIDR DES Last Admin: 08/14/17 06:59 Dose: 1 amp Apixaban (Eliquis -) 2.5 mg PO BID DES Last Admin: 08/14/17 09:08 Dose: 2.5 mg Carvedilol (Coreg -) 12.5 mg PO DAILY DES Last Admin: 08/14/17 09:09 Dose: 12.5 mg Collagenase (Santyl -) 1 applic TP DAILY [facility] Last Admin: 08/14/17 09:10 Dose: 1 applic Furosemide (Lasix -) 40 mg PO DAILY DES Last Admin: 08/14/17 09:09 Dose: 40 mg Guaifenesin (Robitussin -) 10 ml PO Q4H PRN PRN Reason: COUGH Last Admin: 08/13/17 09:23 Dose: 10 ml Ertapenem 1 gm/ Sodium (Chloride) 50 mls @ 50 mls/hr IVPB DAILY DES PRN Reason: Protocol Last Admin: 08/13/17 10:02 Dose: 50 mls/hr Lidocaine/Aluminum/Magnesium/Simeth (Magic Mouthwash *Sjr Formula* -) 5 ml MM Q8H PRN Methylprednisolone Sodium Succinate (Solu-Medrol -) 40 mg IVPB Q8H-IV DES Last Admin: 08/14/17 09:08 Dose: 40 mg Montelukast Sodium (Singulair -) 10 mg PO HS [facility] Last Admin: 08/13/17 21:00 Dose: 10 mg Pantoprazole Sodium (Protonix -) 40 mg PO DAILY DES Last Admin: 08/14/17 09:09 Dose: 40 mg Polyethylene Glycol (Miralax (For Daily Use) -) 17 gm PO DAILY DES Last Admin: 08/14/17 09:09 Dose: Not Given Potassium Chloride (K-Dur -) 20 meq PO DAILY DES Last Admin: 08/14/17 09:09 Dose: 20 meq Quetiapine Fumarate (Seroquel -) 100 mg PO HS [facility] Last Admin: 08/13/17 21:00 Dose: 100 mg Senna (Senna -) 2 tab PO HS PRN PRN Reason: CONSTIPATION - Objective Vital Signs: Vital Signs Temperature 97.5 F L 08/14/17 06:26 Pulse Rate 64 08/14/17 09:29 Respiratory Rate 20 08/14/17 06:26 Blood Pressure 126/68 08/14/17 06:26 O2 Sat by Pulse Oximetry (%) 94 L 08/14/17 09:29 Constitutional: Yes: No Distress Cardiovascular: Yes: Pulse Irregular Respiratory: Yes: Diminished, Rhonchi Gastrointestinal: Yes: Normal Bowel Sounds, Soft, Abdomen, Obese. No: Distention, Tenderness Edema: Yes Edema: LLE: Trace, RLE: Trace Labs: CBC, BMP 08/14/17 06:00 08/14/17 06:00 INR, PTT INR 1.51 (0.82-1.09) H 08/08/17 12:15 Problem List - Problems (1) UTI (urinary tract infection) Code(s): N39.0 - URINARY TRACT INFECTION, SITE NOT SPECIFIED (2) Atrial fibrillation Code(s): I48.91 - UNSPECIFIED ATRIAL FIBRILLATION Qualifiers: Atrial fibrillation type: chronic Qualified Code(s): I48.2 - Chronic atrial fibrillation (3) H/O aortic valve replacement Code(s): Z95.2 - PRESENCE OF PROSTHETIC HEART VALVE (4) Lung cancer Code(s): C34.90 - MALIGNANT NEOPLASM OF UNSP PART OF UNSP BRONCHUS OR LUNG Qualifiers: Laterality: left Lung location: upper lobe of lung Qualified Code(s): C34.12 - Malignant neoplasm of upper lobe, left bronchus or lung (5) Pneumonia Code(s): J18.9 - PNEUMONIA, UNSPECIFIED ORGANISM Qualifiers: Pneumonia type: due to unspecified organism Laterality: bilateral Lung location: lower lobe of lung Qualified Code(s): J18.9 - Pneumonia, unspecified organism (6) Wound infection Code(s): T14.8 - OTHER INJURY OF UNSPECIFIED BODY REGION L08.9 - LOCAL INFECTION OF THE SKIN AND SUBCUTANEOUS TISSUE, UNSP (7) UTI (urinary tract infection) with pyuria Code(s): N39.0 - URINARY TRACT INFECTION, SITE NOT SPECIFIED Assessment/Plan PLAN Taper Solumedrol per pulmonary iv antibiotics per ID Blood cultures -- negative nebs scheduled-- will change to Q6H pt on Eliquis for Afib Daughter wishes for home hospice DVT propylaxis-- Eliquis
--- NOTE | 2017-08-14 10:27 | PN ---
Progress Note, Physician History of Present Illness: OOB in chair No c/o chest pain/ dyspnea/ cough No dysuria Afebrile WBC WNL BC (-) - Current Medication List Current Medications: Active Medications Acetaminophen (Tylenol -) 650 mg PO Q6H PRN PRN Reason: FEVER OR PAIN Last Admin: 08/08/17 19:33 Dose: 650 mg Albuterol/Ipratropium (Duoneb -) 1 amp NEB QIDR DES Last Admin: 08/14/17 06:59 Dose: 1 amp Apixaban (Eliquis -) 2.5 mg PO BID DES Last Admin: 08/14/17 09:08 Dose: 2.5 mg Carvedilol (Coreg -) 12.5 mg PO DAILY DES Last Admin: 08/14/17 09:09 Dose: 12.5 mg Collagenase (Santyl -) 1 applic TP DAILY DES Last Admin: 08/14/17 09:10 Dose: 1 applic Furosemide (Lasix -) 40 mg PO DAILY DES Last Admin: 08/14/17 09:09 Dose: 40 mg Guaifenesin (Robitussin -) 10 ml PO Q4H PRN PRN Reason: COUGH Last Admin: 08/13/17 09:23 Dose: 10 ml Ertapenem 1 gm/ Sodium (Chloride) 50 mls @ 50 mls/hr IVPB DAILY DES PRN Reason: Protocol Last Admin: 08/13/17 10:02 Dose: 50 mls/hr Lidocaine/Aluminum/Magnesium/Simeth (Magic Mouthwash *Sjr Formula* -) 5 ml MM Q8H PRN Methylprednisolone Sodium Succinate (Solu-Medrol -) 40 mg IVPB Q8H-IV DES Last Admin: 08/14/17 09:08 Dose: 40 mg Montelukast Sodium (Singulair -) 10 mg PO HS DES Last Admin: 08/13/17 21:00 Dose: 10 mg Pantoprazole Sodium (Protonix -) 40 mg PO DAILY DES Last Admin: 08/14/17 09:09 Dose: 40 mg Polyethylene Glycol (Miralax (For Daily Use) -) 17 gm PO DAILY DES Last Admin: 08/14/17 09:09 Dose: Not Given Potassium Chloride (K-Dur -) 20 meq PO DAILY DES Last Admin: 08/14/17 09:09 Dose: 20 meq Quetiapine Fumarate (Seroquel -) 100 mg PO HS [facility] Last Admin: 08/13/17 21:00 Dose: 100 mg Senna (Senna -) 2 tab PO HS PRN PRN Reason: CONSTIPATION - Objective Vital Signs: Vital Signs Temperature 97.5 F L 08/14/17 06:26 Pulse Rate 64 08/14/17 09:29 Respiratory Rate 20 08/14/17 06:26 Blood Pressure 126/68 08/14/17 06:26 O2 Sat by Pulse Oximetry (%) 94 L 08/14/17 09:29 Constitutional: Yes: No Distress Eyes: Yes: Conjunctiva Clear Cardiovascular: Yes: Regular Rate and Rhythm, S1, S2 Respiratory: Yes: Other (crepitations L mid lung field) Gastrointestinal: Yes: Normal Bowel Sounds, Soft. No: Tenderness Edema: Yes Labs: CBC, BMP 08/14/17 06:00 08/14/17 06:00 INR, PTT INR 1.51 (0.82-1.09) H 08/08/17 12:15 Assessment/Plan Exacerbation COPD Stage IV lung ca Possible post-obstructive pneumonia UTI ESBL PCN allergy D/C ertapenem. Start po nitrofurantoin x 7d Being evaluated for home hospice Contact precautions
[2017-08-14] MEDS: NITROFURANTOIN MACROCRYSTAL 50 MG CAPSULE (FP) PO SCH ×2 (14:43→18:06)
[2017-08-14] MEDS: QUEtiapine FUMARATE 100 MG TABLET (FP) PO SCH (21:26)
[2017-08-14] MEDS: MONTELUKAST NA 10 MG TABLET PO SCH (21:26)
[2017-08-14] MEDS: guaiFENesin 200 MG/10 ML 10 ML UNIT-DOSE CUPS PO PRN (21:27)
[2017-08-15] MEDS: NITROFURANTOIN MACROCRYSTAL 50 MG CAPSULE (FP) PO SCH ×5 (00:08→23:28)
[2017-08-15] MEDS: ALBUTEROL SO4 2.5/IPRATROPIUM 0.5 INH SOL 3 ML VIAL.NEB. NEB SCH ×5 (00:10→23:15)
[2017-08-15] MEDS: methylPREDNISolone NA SUCC 40 MG/1 ML VIAL IVPB SCH ×2 (01:35→09:02)
[2017-08-15] MEDS: CARVEDILOL 12.5 MG TABLET (FP) PO SCH (09:02)
[2017-08-15] MEDS: PANTOPRAZOLE 40 MG TABLET (FP) PO SCH (09:02)
[2017-08-15] MEDS: APIXABAN 2.5 MG TABLET PO SCH ×2 (09:02→21:23)
[2017-08-15] MEDS: POTASSIUM CHLORIDE TABS 20 MEQ TABLET.ER (FP) PO SCH (09:02)
[2017-08-15] MEDS: FUROSEMIDE 40 MG TABLET (FP) PO SCH (09:02)
[2017-08-15] MEDS: COLLAGENASE CLOSTRIDIUM HIST. 30 GRAMS TUBE TP SCH (09:03)
--- NOTE | 2017-08-15 11:35 | PN ---
Progress Note (short form) - Note Progress Note: Pt seen/ examined. chart reviewed feels better sitting in chair breathing better Vital Signs Temp 98.2 F 08/15/17 09:00 Pulse 90 08/15/17 09:00 Resp 20 08/15/17 09:00 BP 154/94 08/15/17 09:00 Pulse Ox 96 08/14/17 21:00 Intake & Output 08/14/17 08/14/17 08/15/17 11:59 23:59 11:59 Intake Total 100 340 150 Balance 100 340 150 Intake: IVPB 100 Oral 340 150 Other: Voiding Method Toilet Toilet Toilet # Unmeasured Voids Void 2 Bowel Movement Yes # Bowel Movements 2 Active Medications Acetaminophen (Tylenol -) 650 mg PO Q6H PRN PRN Reason: FEVER OR PAIN Last Admin: 08/08/17 19:33 Dose: 650 mg Albuterol/Ipratropium (Duoneb -) 1 amp NEB QIDR [facility] Last Admin: 08/15/17 06:50 Dose: 1 amp Apixaban (Eliquis -) 2.5 mg PO BID [facility] Last Admin: 08/15/17 09:02 Dose: 2.5 mg Carvedilol (Coreg -) 12.5 mg PO DAILY [facility] Last Admin: 08/15/17 09:02 Dose: 12.5 mg Collagenase (Santyl -) 1 applic TP DAILY [facility] Last Admin: 08/15/17 09:03 Dose: 1 applic Furosemide (Lasix -) 40 mg PO DAILY [facility] Last Admin: 08/15/17 09:02 Dose: 40 mg Guaifenesin (Robitussin -) 10 ml PO Q4H PRN PRN Reason: COUGH Last Admin: 08/14/17 21:27 Dose: 10 ml Lidocaine/Aluminum/Magnesium/Simeth (Magic Mouthwash *Sjr Formula* -) 5 ml MM Q8H PRN Methylprednisolone Sodium Succinate (Solu-Medrol -) 40 mg IVPB Q8H-IV [facility] Last Admin: 08/15/17 09:02 Dose: 40 mg Montelukast Sodium (Singulair -) 10 mg PO HS [facility] Last Admin: 08/14/17 21:26 Dose: 10 mg Nitrofurantoin Macrocrystals (Macrodantin -) 50 mg PO Q6HPO [facility] Last Admin: 08/15/17 06:16 Dose: 50 mg Pantoprazole Sodium (Protonix -) 40 mg PO DAILY [facility] Last Admin: 08/15/17 09:02 Dose: 40 mg Polyethylene Glycol (Miralax (For Daily Use) -) 17 gm PO DAILY [facility] Last Admin: 08/14/17 09:09 Dose: Not Given Potassium Chloride (K-Dur -) 20 meq PO DAILY [facility] Last Admin: 08/15/17 09:02 Dose: 20 meq Quetiapine Fumarate (Seroquel -) 100 mg PO HS [facility] Last Admin: 08/14/17 21:26 Dose: 100 mg Senna (Senna -) 2 tab PO HS PRN PRN Reason: CONSTIPATION CBC, BMP 08/14/17 06:00 08/14/17 06:00 Physical Exam Constitutional: Yes: comfortable Cardiovascular: Yes: Pulse Irregular Respiratory: Yes: Diminished, bilateral scattered rhonchi Gastrointestinal: Yes: Normal Bowel Sounds, Soft, Abdomen, Obese. No: Distention, Tenderness Edema: LLE: Trace, RLE: Trace Problem List - Problems (1) UTI (urinary tract infection) Code(s): N39.0 - URINARY TRACT INFECTION, SITE NOT SPECIFIED (2) Atrial fibrillation Code(s): I48.91 - UNSPECIFIED ATRIAL FIBRILLATION Qualifiers: Atrial fibrillation type: chronic Qualified Code(s): I48.2 - Chronic atrial fibrillation (3) H/O aortic valve replacement Code(s): Z95.2 - PRESENCE OF PROSTHETIC HEART VALVE (4) Lung cancer Code(s): C34.90 - MALIGNANT NEOPLASM OF UNSP PART OF UNSP BRONCHUS OR LUNG Qualifiers: Laterality: left Lung location: upper lobe of lung Qualified Code(s): C34.12 - Malignant neoplasm of upper lobe, left bronchus or lung (5) Pneumonia Code(s): J18.9 - PNEUMONIA, UNSPECIFIED ORGANISM Qualifiers: Pneumonia type: due to unspecified organism Laterality: bilateral Lung location: lower lobe of lung Qualified Code(s): J18.9 - Pneumonia, unspecified organism (6) Wound infection Code(s): T14.8 - OTHER INJURY OF UNSPECIFIED BODY REGION L08.9 - LOCAL INFECTION OF THE SKIN AND SUBCUTANEOUS TISSUE, UNSP (7) UTI (urinary tract infection) with pyuria Code(s): N39.0 - URINARY TRACT INFECTION, SITE NOT SPECIFIED Assessment/Plan stable taper steroids continue present care family at bedside hospice being planned. will follow anticipate d/c tomorrow.
[2017-08-15] MEDS: POLYETHYLENE GLYCOL 3350 119 GM BTL PO SCH (11:49)
--- NOTE | 2017-08-15 12:31 | PN ---
Progress Note (short form) - Note Progress Note: PULMONARY FAMILY PRESENT PLANIS FOR HOME WITH HOSPICE AFEBRILE/SPO2 85% 4L/M ANICTERIC DIMINISHED BREATH SOUNDS B/L S1S2 IRREG BS+ RIGHT LOWER EXT EDEMA CALF B/L LOWER EXT VENOUS DUPLEX NEGATIVE LABS/IMAGING/MEDS/NOTES/MICRO REVIEWED IMP ACUTE ON CHRONIC HYPOXEMIC RESPIRATORY FAILURE SEPSIS LUNG CA STAGE 4 COPD ON O2 S/P AVR AFIB PLAN CHANGE TO ORAL PREDNISONE AGREE WITH CURRENT PLAN Eduardo WILLARD MD
[2017-08-15] MEDS: QUEtiapine FUMARATE 100 MG TABLET (FP) PO SCH (21:23)
[2017-08-15] MEDS: MONTELUKAST NA 10 MG TABLET PO SCH (21:23)
[2017-08-15] MEDS ORDERED: methylPREDNISolone NA SUCC 40 MG/1 ML VIAL IVPB SCH (22:00)
[2017-08-16] MEDS: guaiFENesin 200 MG/10 ML 10 ML UNIT-DOSE CUPS PO PRN (01:22)
[2017-08-16] MEDS: ALBUTEROL SO4 2.5/IPRATROPIUM 0.5 INH SOL 3 ML VIAL.NEB. NEB SCH (05:52)
[2017-08-16] MEDS: NITROFURANTOIN MACROCRYSTAL 50 MG CAPSULE (FP) PO SCH (06:33)
[2017-08-16] MEDS: ERTAPENEM SODIUM 1 GM in SODIUM CHLORIDE 50 ML IVPB SCH (07:28)
[2017-08-16 08:38] VITALS: BP 163/97; PULSE 93; TEMP 97.8
[2017-08-16] MEDS: CARVEDILOL 12.5 MG TABLET (FP) PO SCH (09:05)
[2017-08-16] MEDS: FUROSEMIDE 40 MG TABLET (FP) PO SCH (09:05)
[2017-08-16] MEDS: PANTOPRAZOLE 40 MG TABLET (FP) PO SCH (09:05)
[2017-08-16] MEDS: APIXABAN 2.5 MG TABLET PO SCH (09:06)
[2017-08-16] MEDS: POLYETHYLENE GLYCOL 3350 119 GM BTL PO SCH (09:06)
[2017-08-16] MEDS: POTASSIUM CHLORIDE TABS 20 MEQ TABLET.ER (FP) PO SCH (09:06)
--- NOTE | 2017-08-16 09:14 | DS ---
Physical Examination Vital Signs: Vital Signs Temperature 97.8 F 08/16/17 08:37 Pulse Rate 93 H 08/16/17 08:37 Respiratory Rate 22 08/16/17 08:37 Blood Pressure 163/97 08/16/17 08:37 O2 Sat by Pulse Oximetry (%) 96 08/15/17 21:00 Findings/Remarks: feels ok no distress Constitutional: Yes: No Distress Neck: Yes: Supple Cardiovascular: Yes: Regular Rate and Rhythm Respiratory: Yes: Rhonchi Gastrointestinal: Yes: Soft Edema: No Neurological: Yes: Alert Labs: CBC, BMP 08/14/17 06:00 08/14/17 06:00 Discharge Summary Reason For Visit: SOB Current Active Problems Acute on chronic respiratory failure with hypoxemia (Acute) Colonization with multidrug-resistant bacteria (Acute) H/O aortic valve replacement (Acute) Lung cancer (Acute) Pneumonitis (Acute) Sepsis (Acute) Shingles (Acute) UTI (urinary tract infection) (Acute) Hospital Course: The patient is a 86 year old female with a significant PMH of Stage IV lung cancer (2 years of treatment, now on oral chemo), dementia, hyperlipidemia, emphysema/COPD on 2L home O2, pneumonia, and multiple UTIs who presents to the emergency department with generalized weakness, fatigue, and fever (rectal. 102.1F) pt found to have copd exac/ post obstructive pneumonia pt also has esbl--e coli treated with abx I/D , pulmonary followed. Family decided to take her home- home hospice. meds reviewed/ reconcilled discussed with nursing staff discussed with daughter again today. meds called to pharmacy as needed. Condition: Guarded - Instructions Diet, Activity, Other Instructions: Any increased shortness of breath, weakness, or temp 101 or over inform MD Referrals: Binh Garcia MD [Primary Care Provider] - Disposition: DISCHARGE TO HOSPICE-HOME - Home Medications Comprehensive Discharge Medication List: Ambulatory Orders Alectinib HCl [Alecensa] 150 mg PO Q48H 03/26/17 Apixaban [Eliquis -] 2.5 mg PO BID 03/26/17 Carvedilol [Coreg -] 12.5 mg PO DAILY 03/26/17 Furosemide [Lasix -] 40 mg PO DAILY 03/26/17 Montelukast Na [Singulair -] 10 mg PO HS 03/26/17 Potassium Chloride [K-Tab ER] 20 meq PO DAILY 03/26/17 Quetiapine Fumarate [Seroquel] 100 mg PO HS 03/26/17 Collagenase Clostridium Hist. [Santyl -] 1 applic TP DAILY #90 applic 07/14/17 Albuterol 0.083% Nebulizer Gabrielle [Ventolin 0.083% Nebulizer Soln -] 1 amp NEB TID PRN 08/08/17 Alectinib HCl [Alecensa] 300 mg PO Q48H 08/08/17 Acetaminophen [Tylenol .Regular Strength -] 650 mg PO Q6H PRN #0 tablet Guaifenesin [Robitussin -] 10 ml PO Q4H PRN #1 ml 08/16/17 Pantoprazole Sodium [Protonix -] 40 mg PO DAILY #30 tab MDD 1 08/16/17 Polyethylene Glycol 3350 [Miralax 119 gm Btl -] 17 gm PO DAILY bottle 08/16/17 Prednisone 10 mg PO DAILY #30 tablet 08/16/17 Sennosides [Senna -] 2 tab PO HS PRN #60 tablet MDD 2 08/16/17
[2017-08-16] MEDS: COLLAGENASE CLOSTRIDIUM HIST. 30 GRAMS TUBE TP SCH (09:24)
[2017-08-16] MEDS ORDERED: predniSONE 20 MG TABLET (UD) PO SCH (10:00)
--- NOTE | 2017-08-16 10:26 | PN ---
Progress Note (short form) - Note Progress Note: No acute events overnight. Still with some congested cough. No hemoptysis. Intake & Output 08/13/17 08/14/17 08/15/17 08/16/17 23:59 23:59 23:59 23:59 Intake Total 850 440 800 Balance 850 440 800 Last Vital Signs Temp Pulse Resp BP Pulse Ox 97.8 F 93 H 22 163/97 96 08/16/17 08:37 08/16/17 08:37 08/16/17 08:37 08/16/17 08:37 08/15/17 21:00 Active Medications Acetaminophen (Tylenol -) 650 mg PO Q6H PRN PRN Reason: FEVER OR PAIN Last Admin: 08/08/17 19:33 Dose: 650 mg Albuterol/Ipratropium (Duoneb -) 1 amp NEB QIDR [facility] Last Admin: 08/16/17 05:52 Dose: 1 amp Apixaban (Eliquis -) 2.5 mg PO BID [facility] Last Admin: 08/16/17 09:06 Dose: 2.5 mg Carvedilol (Coreg -) 12.5 mg PO DAILY [facility] Last Admin: 08/16/17 09:05 Dose: 12.5 mg Collagenase (Santyl -) 1 applic TP DAILY [facility] Last Admin: 08/16/17 09:24 Dose: 1 applic Furosemide (Lasix -) 40 mg PO DAILY [facility] Last Admin: 08/16/17 09:05 Dose: 40 mg Guaifenesin (Robitussin -) 10 ml PO Q4H PRN PRN Reason: COUGH Last Admin: 08/16/17 01:22 Dose: 10 ml Lidocaine/Aluminum/Magnesium/Simeth (Magic Mouthwash *Sjr Formula* -) 5 ml MM Q8H PRN Montelukast Sodium (Singulair -) 10 mg PO HS [facility] Last Admin: 08/15/17 21:23 Dose: 10 mg Nitrofurantoin Macrocrystals (Macrodantin -) 50 mg PO Q6HPO [facility] Last Admin: 08/16/17 06:33 Dose: 50 mg Pantoprazole Sodium (Protonix -) 40 mg PO DAILY [facility] Last Admin: 08/16/17 09:05 Dose: 40 mg Polyethylene Glycol (Miralax (For Daily Use) -) 17 gm PO DAILY [facility] Last Admin: 08/16/17 09:06 Dose: Not Given Potassium Chloride (K-Dur -) 20 meq PO DAILY DES Last Admin: 08/16/17 09:06 Dose: 20 meq Prednisone (Deltasone -) 40 mg PO DAILY [facility] Last Admin: 08/16/17 09:26 Dose: 40 mg Quetiapine Fumarate (Seroquel -) 100 mg PO HS [facility] Last Admin: 08/15/17 21:23 Dose: 100 mg Senna (Senna -) 2 tab PO HS PRN PRN Reason: CONSTIPATION Constitutional: Yes: Awake and alert, NAD Eyes: Yes: WNL HENT: Yes: WNL Neck: Yes: WNL Cardiovascular: Yes: Pulse Irregular, S1, S2 Respiratory: Yes: bilateral coarse rhonchi, no wheeze heard Gastrointestinal: Yes: Normal Bowel Sounds, Soft Extremities: Yes: WNL Edema: Yes Labs: Problem List - Problems (1) H/O aortic valve replacement Code(s): Z95.2 - PRESENCE OF PROSTHETIC HEART VALVE (2) Lung cancer Code(s): C34.90 - MALIGNANT NEOPLASM OF UNSP PART OF UNSP BRONCHUS OR LUNG Qualifiers: Laterality: left Lung location: upper lobe of lung Qualified Code(s): C34.12 - Malignant neoplasm of upper lobe, left bronchus or lung (3) Pneumonitis Code(s): J18.9 - PNEUMONIA, UNSPECIFIED ORGANISM (4) Atrial fibrillation Code(s): I48.91 - UNSPECIFIED ATRIAL FIBRILLATION Qualifiers: Atrial fibrillation type: chronic Qualified Code(s): I48.2 - Chronic atrial fibrillation (5) Dementia Code(s): F03.90 - UNSPECIFIED DEMENTIA WITHOUT BEHAVIORAL DISTURBANCE Qualifiers: Dementia type: unspecified type Dementia behavioral disturbance: without behavioral disturbance Qualified Code(s): F03.90 - Unspecified dementia without behavioral disturbance (6) HTN (hypertension) Code(s): I10 - ESSENTIAL (PRIMARY) HYPERTENSION Qualifiers: Hypertension type: essential hypertension Qualified Code(s): I10 - Essential (primary) hypertension (7) Lung mass Code(s): R91.8 - OTHER NONSPECIFIC ABNORMAL FINDING OF LUNG FIELD (8) Sepsis Code(s): A41.9 - SEPSIS, UNSPECIFIED ORGANISM (9) Acute on chronic respiratory failure with hypoxemia Code(s): J96.21 - ACUTE AND CHRONIC RESPIRATORY FAILURE WITH HYPOXIA Assessment/Plan IMP ACUTE ON CHRONIC HYPOXEMIC RESPIRATORY FAILURE SEPSIS LUNG CA STAGE 4 COPD ON O2 S/P AVR AFIB PLAN PREDNISONE O2 INHALED BRONCHODILATORS LASIX FOR D/C DR VELAZCO
== END 2017-08-16 10:29 | disposition hospice, home (50) | DRG 871 ==
LOC: JER 11:06 → JERBED 14:10 → J8W 14:10 → OBSVTOIN 08-11 10:35 → J8W 08-11 19:51
PROVIDERS: ADMIT Internal Medicine; ATTEND Internal Medicine
DX: A41.51 Sepsis due to Escherichia coli [E. coli] (principal); J18.9 Pneumonia, unspecified organism; J96.21 Acute and chronic respiratory failure with hypoxia; C34.12 Malignant neoplasm of upper lobe, left bronchus or lung; N39.0 Urinary tract infection, site not specified; J44.1 Chronic obstructive pulmonary disease with (acute) exacerbation; J90 Pleural effusion, not elsewhere classified; E78.5 Hyperlipidemia, unspecified; I48.2 Chronic atrial fibrillation; F03.90 Unspecified dementia, unspecified severity, without behavioral disturbance, psychotic disturbance, mood disturbance, and anxiety; K59.09 Other constipation; L08.9 Local infection of the skin and subcutaneous tissue, unspecified; Z95.1 Presence of aortocoronary bypass graft; Z95.2 Presence of prosthetic heart valve; Z99.81 Dependence on supplemental oxygen; Z88.0 Allergy status to penicillin
CPT/HCPCS: 36415; 71010-TC; 71250-TC; 80048; 80053; 81003; 81015; 83605; 83735; 83880; 84439; 84443; 84484; 85025; 85027; 85610; 85730; 87040; 87086; 87186; 93005; 93010; 93970-TC; 94640; 99283-25; G0378

== ENCOUNTER 2017-10-03 01:23 | Inpatient (IN) | payer OTHER ==
[2017-10-03] MEDS ORDERED: SODIUM CHLORIDE 1,000 ML IV STA (02:02)
[2017-10-03] MEDS ORDERED: ACETAMINOPHEN 1000 MG/100 ML VIAL (NON FORMULARY) IVPB ONE (02:02)
[2017-10-03] MEDS ORDERED: dilTIAZem HCL 50 MG/10 ML - 10 ML VIAL IVPUSH ONE (02:03)
--- NOTE | 2017-10-03 02:04 | PDOC ---
History of Present Illness - General History Source: Patient, Family Exam Limitations: Dementia - History of Present Illness Initial Comments: 10/03/17 02:35 The patient is a 86 year old female, with a significant past medical history of Stage IV lung cancer (2 years of treatment, now on oral chemo), dementia, hyperlipidemia, emphysema/COPD on 2L home O2, pneumonia, and multiple UTIs who presents to the emergency department brought in by family with increased agitation and shortness of breath for approximately 2-3 days. Family admits the patient has felt warm at home, and reports the last measured TMax was 99F yesterday during the day. Family notes patient has had decreased appetite. As per daughter, patient has had foul smelling urine. Patient denies any associated dysuria, hematuria, frequency, or urgency. She denies any abdominal pain, nausea, vomiting, diarrhea, or constipation. Patients family reports they have been compliant in administering the patients medication. They report the patient was recently started on Lorazapam for increased agitation, and her last dose was prior to presentation. Patient denies any chest pain, diaphoresis , palpitations, or lower extremity edema. She denies any chills, cough, sore throat, headache, or dizziness. Patient typically f/u with Dr. Garcia, but has not seen him or his colleagues since August. Allergies: Bacitracin, Penicillins Past surgical history: Heart valve replacement, CABG Social history: Non smoker. No ETOH or recreational drug use. PCP: Dr. Garcia Oncologist: Dr. Rico <Oscar Guerra - Last Filed: 10/03/17 06:00> - General History Source: EMS <Cesar Ocampo - Last Filed: 10/21/17 19:33> - General Chief Complaint: Shortness of Breath Stated Complaint: SHORTNESS OF BREATH Time Seen by Provider: 10/03/17 02:00 Past History <Oscar Guerra - Last Filed: 10/03/17 06:00> - Past Medical History Anemia: No Asthma: No Cancer: Yes (STAGE 2 LUNG CA) Cardiac Disorders: Yes (OPEN HEART SURGERY VALVE REPLACEMENT 1989 [facility]) CVA: No COPD: Yes (EMPHYSEMA) CHF: No Dementia: Yes Diabetes: No GI Disorders: No Disorders: No HTN: No Hypercholesterolemia: Yes Liver Disease: No Seizures: No Thyroid Disease: No - Surgical History Cardiac Surgery: Yes (HEART VALVE REPLACEMENT) - Immunization History Immunization Up to Date: No - Suicide/Smoking/Psychosocial Hx Smoking History: Never smoked Have you smoked in the past 12 months: No Information on smoking cessation initiated: No Hx Alcohol Use: No Drug/Substance Use Hx: No Substance Use Type: None Hx Substance Use Treatment: No <Cesar Ocampo - Last Filed: 10/21/17 19:33> - Past Medical History Allergies/Adverse Reactions: Allergies Allergy/AdvReac Type Severity Reaction Status Date / Time bacitracin Allergy Rash Verified 10/03/17 01:41 Penicillins Allergy Verified 10/03/17 01:41 TAPE Allergy Uncoded 10/03/17 01:41 Home Medications: Ambulatory Orders Alectinib HCl [Alecensa] 150 mg PO Q48H 03/26/17 Apixaban [Eliquis -] 2.5 mg PO BID 03/26/17 Carvedilol [Coreg -] 12.5 mg PO DAILY 03/26/17 Furosemide [Lasix -] 40 mg PO DAILY 03/26/17 Montelukast Na [Singulair -] 10 mg PO HS 03/26/17 Potassium Chloride [K-Tab ER] 20 meq PO DAILY 03/26/17 Quetiapine Fumarate [Seroquel] 100 mg PO HS 03/26/17 Collagenase Clostridium Hist. [Santyl -] 1 applic TP DAILY #90 applic 07/14/17 Albuterol 0.083% Nebulizer Gabrielle [Ventolin 0.083% Nebulizer Soln -] 1 amp NEB TID PRN 08/08/17 Alectinib HCl [Alecensa] 300 mg PO Q48H 08/08/17 Acetaminophen [Tylenol .Regular Strength -] 650 mg PO Q6H PRN #0 tablet Guaifenesin [Robitussin -] 10 ml PO Q4H PRN #1 ml 08/16/17 Pantoprazole Sodium [Protonix -] 40 mg PO DAILY #30 tab MDD 1 08/16/17 Polyethylene Glycol 3350 [Miralax 119 gm Btl -] 17 gm PO DAILY bottle 08/16/17 Sennosides [Senna -] 2 tab PO HS PRN #60 tablet MDD 2 08/16/17 Nitrofurantoin Macrocrystal [Macrodantin -] 50 mg PO Q6HPO #24 tab MDD 4 Review of Systems - Review of Systems Able to Perform ROS?: Yes Comments:: 10/03/17 02:35 CONSTITUTIONAL: Present: fever Absent: no chills, no fatigue EYES: Absent: visual changes ENT: Absent: ear pain, no sore throat CARDIOVASCULAR: Absent: chest pain, no palpitations RESPIRATORY: Present: shortness of breath Absent: cough GI: Absent: abdominal pain, no nausea, no vomiting, no constipation, no diarrhea GENITOURINARY: Absent: dysuria, no frequency, no hematuria MUSCULOSKELETAL: Absent: back pain, no arthralgia, no myalgia SKIN: Absent: rash NEURO: Absent: headache ENDOCRINE: Present: Decreased appetite. Absent: Increased thirst. PSYCH: Present: Increased agitation. Absent: Suicidal or homicidal ideations. <Oscar Guerra - Last Filed: 10/03/17 06:00> *Physical Exam - Vital Signs Last Vital Signs Temp Pulse Resp BP Pulse Ox 101.1 F H 118 H 28 H 159/92 88 L 10/03/17 01:41 10/03/17 01:41 10/03/17 01:41 10/03/17 01:41 10/03/17 01:41 - Physical Exam Comments: 10/03/17 02:37 GENERAL: Well developed, well nourished. Awake and alert. Mild distress. HEENT: Normocephalic, atraumatic. PERRLA, EOMI. No conjunctival pallor. Sclera are non- icteric. Moist mucous membranes. Oropharynx is clear. NECK: Supple. Full ROM. No JVD. Carotid pulses 2+ and symmetric, without bruits. No thyromegaly. No lymphadenopathy. CARDIOVASCULAR: Irregularly irregular. Tachycardic. No murmurs, rubs, or gallops. Distal pulses are 2+ and symmetric. PULMONARY: Mild respiratory distress, but no retractions. Increased work of breathing. Decreased breath sounds bilaterally with scattered wheezing. No rales or rhonchi. ABDOMINAL: Soft. Non-tender. Non-distended. No rebound or guarding. No organomegaly. Normoactive bowel sounds. MUSCULOSKELETAL Normal range of motion at all joints. No bony deformities or tenderness. No CVA tenderness. EXTREMITIES: No cyanosis. No clubbing. No edema. No calf tenderness. SKIN: Warm and dry. Normal capillary refill. No rashes. No jaundice. NEUROLOGICAL: Alert, awake, confused. Cranial nerves 2-12 intact. No deficits to light touch and temperature in face, upper extremities and lower extremities. No motor deficits in the in face, upper extremities and lower extremities. Normoreflexic in the upper and lower extremities. Normal speech. Toes are down-going bilaterally. PSYCHIATRIC: Cooperative. Good eye contact. Appropriate mood and affect. <Oscar Guerra - Last Filed: 10/03/17 06:00> - Vital Signs Last Vital Signs Temp Pulse Resp BP Pulse Ox 101.1 F H 118 H 28 H 159/92 88 L 10/03/17 01:41 10/03/17 01:41 10/03/17 01:41 10/03/17 01:41 10/03/17 01:41 <Cesar Ocampo - Last Filed: 10/21/17 19:33> Heart Score/ECG Review - ECG Intrepretation Comment:: 10/03/17 02:05 Vent Rate: 115 bpm IMPRESSION: Atrial fibrillation with rapid ventricular response. Nonspecific ST abnormality. <Oscar Guerra - Last Filed: 10/03/17 06:00> ED Treatment Course - LABORATORY CBC & Chemistry Diagram: 10/03/17 02:00 10/03/17 02:00 <Oscar Guerra - Last Filed: 10/03/17 06:00> - LABORATORY CBC & Chemistry Diagram: 10/06/17 10:00 10/06/17 10:00 <Cesar Ocampo - Last Filed: 10/21/17 19:33> Medical Decision Making - Medical Decision Making 10/03/17 06:00 First call placed to Dr. Jurado at 06:00. Awaiting call back. <Oscar Guerra - Last Filed: 10/03/17 06:00> *DC/Admit/Observation/Transfer - Attestations Scribe Attestion: 10/03/17 02:05 Documentation prepared by Oscar Guerra, acting as medical lab scientist for Cesar Ocampo DO. <Oscar Guerra - Last Filed: 10/03/17 06:00> - Discharge Dispostion Admit: Yes <Cesar Ocampo - Last Filed: 10/21/17 19:33> Diagnosis at time of Disposition: Sepsis Qualifiers: Sepsis type: sepsis due to unspecified organism Qualified Code(s): A41.9 - Sepsis, unspecified organism UTI (urinary tract infection) Qualifiers: Urinary tract infection type: site unspecified Hematuria presence: without hematuria Qualified Code(s): N39.0 - Urinary tract infection, site not specified - Discharge Dispostion Disposition: DISCHARGE TO HOSPICE-HOME Condition at time of disposition: Improved
[2017-10-03] MEDS ORDERED: ACETAMINOPHEN INJECTION 100 ML IVPB ONE (02:09)
[2017-10-03] MEDS ORDERED: dilTIAZem HCL 125 MG/25 ML - 25 ML VIAL ONE (02:10)
[2017-10-03 02:19] LABS: BASOPHIL 1.1 % (0-2.0); EOSINOPHIL 0.2 % (0-4.5); MCH 30.8 pg (25.7-33.7); MCHC 33.8 g/dl (32.0-36.0); MEAN PLT VOLUME 8.9 fl (7.5-11.1); NEUTROPHILS 75.7 % (42.8-82.8); PLATELET COUNT 139 K/MM3 (134-434); RDW 15.9 % (11.6-15.6); WHITE BLOOD COUNT 13.5 K/mm3 (4.0-10.0)
[2017-10-03 02:32] LABS: INR 1.64 (0.82-1.09); PROTHROMBIN TIME (PATIENT) 18.5 SEC (9.98-11.88)
[2017-10-03 02:44] LABS: ALBUMIN 3.3 g/dl (3.4-5.0); ANION GAP 12 (8-16); BILIRUBIN,TOTAL 0.8 mg/dL (0.2-1.0); CALCIUM 8.5 mg/dL (8.5-10.1); CO2 26 mmol/L (21-32); CREATININE 0.8 mg/dL (0.55-1.02); GLUCOSE,RANDOM 173 mg/dL (74-106); SGOT/AST 23 U/L (15-37); SGPT/ALT 20 U/L (12-78); TOT PROT 7.5 g/dl (6.4-8.2)
[2017-10-03 02:46] LABS: ALK PHOS 103 U/L (45-117); CPK 25 IU/L (26-192); TROPONIN I 0.02 ng/ml (0.00-0.05)
[2017-10-03] MEDS ORDERED: LEVOFLOXACIN 500 MG IVPB 100 ML IVPB ONE ×2 (05:58→06:30)
[2017-10-03 06:04] LABS: PH,URINE 6.5 (5.0-8.0); URINE APPEARANCE CLEAR; URINE BILIRUBIN NEGATIVE (NEGATIVE); URINE BLOOD 3+ (NEGATIVE); URINE COLOR LT. YELLOW; URINE GLUCOSE (UA) NEGATIVE (NEGATIVE); URINE KETONE NEGATIVE (NEGATIVE); URINE NITRITE NEGATIVE (NEGATIVE); URINE PROTEIN 2+ (NEGATIVE); URINE UROBILINOGEN 0.2 mg/dL (0.2-1.0)
[2017-10-03 06:14] LABS: URINE BACTERIA MANY /hpf (NONE SEEN); YEAST FEW
[2017-10-03] MEDS ORDERED: FUROSEMIDE 40 MG/4 ML INJECTABLE VIAL IVPUSH ONE (07:05)
[2017-10-03] MEDS ORDERED: FUROSEMIDE 40 MG/4 ML INJECTABLE VIAL ONE ×2 (08:13→11:17)
[2017-10-03] MEDS ORDERED: ALBUTEROL SO4 2.5/IPRATROPIUM 0.5 INH SOL 3 ML VIAL.NEB. NEB ONE (09:34)
--- NOTE | 2017-10-03 09:41 | EKG ---
Test Reason : Blood Pressure : / mmHG Vent. Rate : 115 BPM Atrial Rate : 144 BPM P-R Int : 000 ms QRS Dur : 086 ms QT Int : 338 ms P-R-T Axes : 000 016 071 degrees QTc Int : 467 ms ATRIAL FIBRILLATION WITH RAPID VENTRICULAR RESPONSE NONSPECIFIC ST ABNORMALITY ABNORMAL ECG WHEN COMPARED WITH ECG OF 08-AUG-2017 11:31, NONSPECIFIC T WAVE ABNORMALITY NO LONGER EVIDENT IN LATERAL LEADS Confirmed by SARAH PATEL MD ([id number]) on 10/03/2017 9:41:20 AM Referred By: Confirmed By:SARAH PATEL MD
[2017-10-03] MEDS ORDERED: ACETAMINOPHEN 325 MG TABLET (FP) PO PRN (10:04)
[2017-10-03] MEDS ORDERED: guaiFENesin 200 MG/10 ML 10 ML UNIT-DOSE CUPS PO PRN (10:04)
--- NOTE | 2017-10-03 10:09 | HP ---
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 Family admits the patient has felt warm at home, and reports the last measured TMax was 99F yesterday during the day. Family notes patient has had decreased appetite. As per daughter, patient has had foul smelling urine. Patient denies any associated dysuria, hematuria, frequency, or urgency. She denies any abdominal pain, nausea, vomiting, diarrhea, or constipation. Patients family reports they have been compliant in administering the patients medication. They report the patient was recently started on Lorazapam for increased agitation, and her last dose was prior to presentation. Patient denies any chest pain, diaphoresis , palpitations, or lower extremity edema. She denies any chills, cough, sore throat, headache, or dizziness. Patient typically f/u with Dr. Garcia, but has not seen him or his colleagues since August. Allergies: Bacitracin, Penicillins Past surgical history: Heart valve replacement, CABG Social history: Non smoker. No ETOH or recreational drug use. PCP: Dr. Garcia Oncologist: Dr. Rico pt found to have uti- given abx-- being admitted Case was discussed with er physician finance director. pt seen / examined in er . family at bedside pt / family reports feels better. denies cp. mild sob + denies abd pain pt was send under hospice care last visit. 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: Yes: Alzheimer's Cardiovascular: Yes: AFIB, Aortic Stenosis (s/p AVR- bioprosthetic valve- not on Coumadin - was dc by on Dec 2104), HTN, Hyperlipdemia - Past Surgical History Past Surgical History: Yes: Valve Replacement - Smoking History Smoking history: Never smoked Have you smoked in the past 12 months: No - Alcohol/Substance Use Hx Alcohol Use: No - Social History ADL: Family Assistance History of Recent Travel: No Home Medications - Allergies Allergies/Adverse Reactions: Allergies Allergy/AdvReac Type Severity Reaction Status Date / Time bacitracin Allergy Rash Verified 10/03/17 01:41 Penicillins Allergy Verified 10/03/17 01:41 TAPE Allergy Uncoded 10/03/17 01:41 - Home Medications Home Medications: Ambulatory Orders Alectinib HCl [Alecensa] 150 mg PO Q48H 03/26/17 Apixaban [Eliquis -] 2.5 mg PO BID 03/26/17 Carvedilol [Coreg -] 12.5 mg PO DAILY 03/26/17 Furosemide [Lasix -] 40 mg PO DAILY 03/26/17 Montelukast Na [Singulair -] 10 mg PO HS 03/26/17 Potassium Chloride [K-Tab ER] 20 meq PO DAILY 03/26/17 Quetiapine Fumarate [Seroquel] 100 mg PO HS 03/26/17 Collagenase Clostridium Hist. [Santyl -] 1 applic TP DAILY #90 applic 07/14/17 Albuterol 0.083% Nebulizer Gabrielle [Ventolin 0.083% Nebulizer Soln -] 1 amp NEB TID PRN 08/08/17 Alectinib HCl [Alecensa] 300 mg PO Q48H 08/08/17 Acetaminophen [Tylenol .Regular Strength -] 650 mg PO Q6H PRN #0 tablet Guaifenesin [Robitussin -] 10 ml PO Q4H PRN #1 ml 08/16/17 Nitrofurantoin Macrocrystal [Macrodantin -] 50 mg PO Q6HPO #24 tab 08/16/17 Pantoprazole Sodium [Protonix -] 40 mg PO DAILY #30 tab MDD 1 08/16/17 Polyethylene Glycol 3350 [Miralax 119 gm Btl -] 17 gm PO DAILY bottle 08/16/17 Prednisone 10 mg PO DAILY #30 tablet 08/16/17 Sennosides [Senna -] 2 tab PO HS PRN #60 tablet MDD 2 08/16/17 Family Disease History - Family Disease History Family Disease History: Other: Daughter (pe) Review of Systems Unable to obtain ROS, reason: see pokagon Physical Examination Vital Signs: Vital Signs Temperature 98.0 F 10/03/17 07:37 Pulse Rate 94 H 10/03/17 07:37 Respiratory Rate 16 10/03/17 07:37 Blood Pressure 124/83 10/03/17 07:37 O2 Sat by Pulse Oximetry (%) 96 10/03/17 07:37 Constitutional: Yes: No Distress Eyes: Yes: Conjunctiva Clear Neck: Yes: Supple Cardiovascular: Yes: Pulse Irregular. No: Regular Rate and Rhythm Respiratory: Yes: Diminished (at bases) Gastrointestinal: Yes: Soft Edema: LLE: Trace, RLE: Trace Neurological: Yes: Alert Imaging - Results Chest X-ray: Report Reviewed EKG: Report Reviewed Problem List - Problems (1) Acute on chronic respiratory failure with hypoxemia Code(s): J96.21 - ACUTE AND CHRONIC RESPIRATORY FAILURE WITH HYPOXIA (2) Colonization with multidrug-resistant bacteria Code(s): Z22.322 - CARRIER OR SUSPECTED CARRIER OF METHICILLIN RESIS STAPH (3) H/O aortic valve replacement Code(s): Z95.2 - PRESENCE OF PROSTHETIC HEART VALVE (4) UTI (urinary tract infection) Code(s): N39.0 - URINARY TRACT INFECTION, SITE NOT SPECIFIED Qualifiers: Urinary tract infection type: site unspecified Hematuria presence: without hematuria Qualified Code(s): N39.0 - Urinary tract infection, site not specified; N39.0 - Urinary tract infection, site not specified; R31.9 - Hematuria, unspecified; R31.9 - Hematuria, unspecified (5) Atrial fibrillation Code(s): I48.91 - UNSPECIFIED ATRIAL FIBRILLATION Qualifiers: Atrial fibrillation type: chronic Qualified Code(s): I48.2 - Chronic atrial fibrillation; I48.2 - Chronic atrial fibrillation; I48.2 - Chronic atrial fibrillation; I48.2 - Chronic atrial fibrillation (6) Dementia Code(s): F03.90 - UNSPECIFIED DEMENTIA WITHOUT BEHAVIORAL DISTURBANCE Qualifiers: Dementia type: unspecified type Dementia behavioral disturbance: without behavioral disturbance Qualified Code(s): F03.90 - Unspecified dementia without behavioral disturbance; F03.90 - Unspecified dementia without behavioral disturbance; F03.90 - Unspecified dementia without behavioral disturbance (7) Lung cancer Code(s): C34.90 - MALIGNANT NEOPLASM OF UNSP PART OF UNSP BRONCHUS OR LUNG Qualifiers: Laterality: left Lung location: upper lobe of lung Qualified Code(s): C34.12 - Malignant neoplasm of upper lobe, left bronchus or lung; C34.12 - Malignant neoplasm of upper lobe, left bronchus or lung; C34.12 - Malignant neoplasm of upper lobe, left bronchus or lung; C34.12 - Malignant neoplasm of upper lobe, left bronchus or lung Assessment/Plan Admit to floor oxygen abx nebulizer treatment. f/u cultures change lasix to i/v will follow condition gaurded. Discussed with Pts daughters who are at bedside.
[2017-10-03] MEDS ORDERED: ALECTINIB HCL 150 MG PO SCH (10:15)
[2017-10-03] MEDS ORDERED: ALECTINIB HCL PO SCH (10:15)
[2017-10-03] MEDS: ALBUTEROL SO4 0.083% IH SOL 2.5 MG/3 ML VIAL.NEB. NEB PRN (10:18)
[2017-10-03] MEDS: FUROSEMIDE 40 MG/4 ML INJECTABLE VIAL IVPUSH SCH (11:06)
[2017-10-03 13:49] LABS: URINE LEUK ESTERASE 1+ (NEGATIVE)
[2017-10-03] MEDS ORDERED: ACETAMINOPHEN 325 MG TABLET (FP) ONE (16:49)
[2017-10-03 17:41] VITALS: BMI 29.7
[2017-10-03] MEDS ORDERED: SENNOSIDES 8.6MG TABLET (FP) PO PRN (22:00)
[2017-10-03] MEDS: MONTELUKAST NA 10 MG TABLET PO SCH (22:02)
[2017-10-03] MEDS: APIXABAN 2.5 MG TABLET PO SCH (22:02)
[2017-10-03] MEDS: QUEtiapine FUMARATE 100 MG TABLET (FP) PO SCH (22:02)
[2017-10-04 08:30] LABS: BASOPHIL 0.5 % (0-2.0); EOSINOPHIL 2.4 % (0-4.5); MCH 31.1 pg (25.7-33.7); MCHC 33.8 g/dl (32.0-36.0); MEAN CELL VOLUME 91.9 fl (80-96); MEAN PLT VOLUME 8.9 fl (7.5-11.1); NEUTROPHILS 62.1 % (42.8-82.8); PLATELET COUNT 136 K/MM3 (134-434); RDW 16.2 % (11.6-15.6); WHITE BLOOD COUNT 9.3 K/mm3 (4.0-10.0)
[2017-10-04 08:44] LABS: ALBUMIN 2.7 g/dl (3.4-5.0); ANION GAP 8 (8-16); CALCIUM 8.4 mg/dL (8.5-10.1); CO2 31 mmol/L (21-32); CREATININE 0.8 mg/dL (0.55-1.02); GLUCOSE,RANDOM 102 mg/dL (74-106); SGOT/AST 19 U/L (15-37); SGPT/ALT 19 U/L (12-78)
[2017-10-04 08:46] LABS: ALK PHOS 88 U/L (45-117); BILIRUBIN,TOTAL 0.8 mg/dL (0.2-1.0); TOT PROT 6.8 g/dl (6.4-8.2)
[2017-10-04] MEDS: CARVEDILOL 12.5 MG TABLET (FP) PO SCH (09:37)
[2017-10-04] MEDS: POTASSIUM CHLORIDE TABS 20 MEQ TABLET.ER (FP) PO SCH (09:38)
[2017-10-04] MEDS: PANTOPRAZOLE 40 MG TABLET (FP) PO SCH (09:38)
[2017-10-04] MEDS: FUROSEMIDE 40 MG/4 ML INJECTABLE VIAL IVPUSH SCH (09:38)
[2017-10-04] MEDS: LEVOFLOXACIN 500 MG IVPB 100 ML IVPB SCH (09:38)
[2017-10-04] MEDS: APIXABAN 2.5 MG TABLET PO SCH ×2 (09:38→21:17)
[2017-10-04] MEDS: POLYETHYLENE GLYCOL 3350 119 GM BTL PO SCH (09:50)
[2017-10-04] MEDS ORDERED: FUROSEMIDE 40 MG TABLET (FP) PO SCH (10:00)
[2017-10-04] MEDS ORDERED: predniSONE 10 MG TABLET (UD) PO SCH (10:00)
[2017-10-04 10:18] LABS: URINE RBC 14; URINE WBC 65
[2017-10-04 10:19] LABS: URINE BACTERIA MANY /hpf (NEGATIVE); YEAST FEW
--- NOTE | 2017-10-04 11:15 | PN ---
Progress Note, Physician Chief Complaint: no complaints feels ok no SOB - Current Medication List Current Medications: Active Medications Acetaminophen (Tylenol -) 650 mg PO Q6H PRN PRN Reason: FEVER OR PAIN Albuterol Sulfate (Ventolin 0.083% Nebulizer Soln -) 1 amp NEB TID PRN PRN Reason: SHORTNESS OF BREATH Last Admin: 10/03/17 10:18 Dose: 1 amp Apixaban (Eliquis -) 2.5 mg PO BID [facility] Last Admin: 10/04/17 09:38 Dose: 2.5 mg Carvedilol (Coreg -) 12.5 mg PO DAILY [facility] Last Admin: 10/04/17 09:37 Dose: 12.5 mg Collagenase (Santyl -) 1 applic TP DAILY [facility] Furosemide (Lasix Injection -) 40 mg IVPUSH DAILY [facility] Last Admin: 10/04/17 09:38 Dose: 40 mg Guaifenesin (Robitussin -) 10 ml PO Q4H PRN PRN Reason: COUGH Levofloxacin (Levaquin 500 Mg Premixed Ivpb -) 100 mls @ 100 mls/hr IVPB DAILY [facility] Last Admin: 10/04/17 09:38 Dose: 100 mls/hr Montelukast Sodium (Singulair -) 10 mg PO HS [facility] Last Admin: 10/03/17 22:02 Dose: 10 mg Non-Formulary Medication (Alectinib Hcl [Alecensa]) 150 mg PO Q48H DES Non-Formulary Medication (Alectinib Hcl [Alecensa]) 300 mg PO Q48H [facility] Pantoprazole Sodium (Protonix -) 40 mg PO DAILY [facility] Last Admin: 10/04/17 09:38 Dose: 40 mg Polyethylene Glycol (Miralax (For Daily Use) -) 17 gm PO DAILY [facility] Last Admin: 10/04/17 09:50 Dose: 17 gm Potassium Chloride (K-Dur -) 20 meq PO DAILY [facility] Last Admin: 10/04/17 09:38 Dose: 20 meq Quetiapine Fumarate (Seroquel -) 100 mg PO HS [facility] Last Admin: 10/03/17 22:02 Dose: 100 mg Senna (Senna -) 2 tab PO HS PRN PRN Reason: CONSTIPATION - Objective Vital Signs: Vital Signs Temperature 98.3 F 10/04/17 07:49 Pulse Rate 107 H 10/04/17 07:49 Respiratory Rate 18 10/04/17 07:49 Blood Pressure 121/85 10/04/17 07:49 O2 Sat by Pulse Oximetry (%) 95 10/03/17 21:04 Constitutional: Yes: No Distress Cardiovascular: Yes: Pulse Irregular Respiratory: Yes: Diminished, Other Gastrointestinal: Yes: Normal Bowel Sounds, Soft. No: Distention, Tenderness Edema: Yes Edema: LLE: Trace, RLE: Trace Labs: CBC, BMP 10/04/17 07:00 10/04/17 07:00 INR, PTT INR 1.64 (0.82-1.09) H 10/03/17 02:00 Problem List - Problems (1) Acute on chronic respiratory failure with hypoxemia Code(s): J96.21 - ACUTE AND CHRONIC RESPIRATORY FAILURE WITH HYPOXIA (2) Colonization with multidrug-resistant bacteria Code(s): Z22.322 - CARRIER OR SUSPECTED CARRIER OF METHICILLIN RESIS STAPH (3) H/O aortic valve replacement Code(s): Z95.2 - PRESENCE OF PROSTHETIC HEART VALVE (4) Lung cancer Code(s): C34.90 - MALIGNANT NEOPLASM OF UNSP PART OF UNSP BRONCHUS OR LUNG Qualifiers: Laterality: left Lung location: upper lobe of lung Qualified Code(s): C34.12 - Malignant neoplasm of upper lobe, left bronchus or lung; C34.12 - Malignant neoplasm of upper lobe, left bronchus or lung; C34.12 - Malignant neoplasm of upper lobe, left bronchus or lung; C34.12 - Malignant neoplasm of upper lobe, left bronchus or lung (5) UTI (urinary tract infection) Code(s): N39.0 - URINARY TRACT INFECTION, SITE NOT SPECIFIED Qualifiers: Urinary tract infection type: site unspecified Hematuria presence: without hematuria Qualified Code(s): N39.0 - Urinary tract infection, site not specified; N39.0 - Urinary tract infection, site not specified; R31.9 - Hematuria, unspecified; R31.9 - Hematuria, unspecified Assessment/Plan PLAN iv antibiotics check blood cultures likely urine is colonizer iv fluids potassium to be replaced continue with meds
[2017-10-04] MEDS: COLLAGENASE CLOSTRIDIUM HIST. 30 GRAMS TUBE TP SCH (18:36)
[2017-10-04] MEDS: QUEtiapine FUMARATE 100 MG TABLET (FP) PO SCH (21:17)
[2017-10-04] MEDS: MONTELUKAST NA 10 MG TABLET PO SCH (21:17)
[2017-10-04] MEDS: ALBUTEROL SO4 0.083% IH SOL 2.5 MG/3 ML VIAL.NEB. NEB PRN (21:30)
[2017-10-05] MEDS: APIXABAN 2.5 MG TABLET PO SCH ×2 (09:28→21:15)
[2017-10-05] MEDS: FUROSEMIDE 40 MG/4 ML INJECTABLE VIAL IVPUSH SCH (09:28)
[2017-10-05] MEDS: PANTOPRAZOLE 40 MG TABLET (FP) PO SCH (09:28)
[2017-10-05] MEDS: CARVEDILOL 12.5 MG TABLET (FP) PO SCH (09:28)
[2017-10-05] MEDS: LEVOFLOXACIN 500 MG IVPB 100 ML IVPB SCH (09:28)
[2017-10-05] MEDS: POTASSIUM CHLORIDE TABS 20 MEQ TABLET.ER (FP) PO SCH (09:28)
[2017-10-05] MEDS: POLYETHYLENE GLYCOL 3350 119 GM BTL PO SCH (09:29)
[2017-10-05] MEDS: COLLAGENASE CLOSTRIDIUM HIST. 30 GRAMS TUBE TP SCH (09:30)
--- NOTE | 2017-10-05 10:29 | PN ---
Progress Note, Physician Chief Complaint: no complaints feels ok no SOB - Current Medication List Current Medications: Active Medications Acetaminophen (Tylenol -) 650 mg PO Q6H PRN PRN Reason: FEVER OR PAIN Albuterol Sulfate (Ventolin 0.083% Nebulizer Soln -) 1 amp NEB TID PRN PRN Reason: SHORTNESS OF BREATH Last Admin: 10/04/17 21:30 Dose: 1 amp Apixaban (Eliquis -) 2.5 mg PO BID [facility] Last Admin: 10/05/17 09:28 Dose: 2.5 mg Carvedilol (Coreg -) 12.5 mg PO DAILY [facility] Last Admin: 10/05/17 09:28 Dose: 12.5 mg Collagenase (Santyl -) 1 applic TP DAILY [facility] Last Admin: 10/05/17 09:30 Dose: 1 applic Furosemide (Lasix Injection -) 40 mg IVPUSH DAILY [facility] Last Admin: 10/05/17 09:28 Dose: 40 mg Guaifenesin (Robitussin -) 10 ml PO Q4H PRN PRN Reason: COUGH Levofloxacin (Levaquin 500 Mg Premixed Ivpb -) 100 mls @ 100 mls/hr IVPB DAILY [facility] Last Admin: 10/05/17 09:28 Dose: 100 mls/hr Montelukast Sodium (Singulair -) 10 mg PO HS [facility] Last Admin: 10/04/17 21:17 Dose: 10 mg Pantoprazole Sodium (Protonix -) 40 mg PO DAILY [facility] Last Admin: 10/05/17 09:28 Dose: 40 mg Polyethylene Glycol (Miralax (For Daily Use) -) 17 gm PO DAILY [facility] Last Admin: 10/05/17 09:29 Dose: 17 gm Potassium Chloride (K-Dur -) 20 meq PO DAILY [facility] Last Admin: 10/05/17 09:28 Dose: 20 meq Quetiapine Fumarate (Seroquel -) 100 mg PO HS [facility] Last Admin: 10/04/17 21:17 Dose: 100 mg Senna (Senna -) 2 tab PO HS PRN PRN Reason: CONSTIPATION - Objective Vital Signs: Vital Signs Temperature 98.3 F 10/05/17 06:00 Pulse Rate 92 H 10/05/17 06:00 Respiratory Rate 18 10/05/17 06:00 Blood Pressure 123/66 10/05/17 06:00 O2 Sat by Pulse Oximetry (%) 96 10/04/17 21:00 Constitutional: Yes: No Distress Cardiovascular: Yes: Regular Rate and Rhythm Respiratory: Yes: Diminished Gastrointestinal: Yes: Normal Bowel Sounds, Soft. No: Tenderness Edema: No Labs: CBC, BMP 10/04/17 07:00 10/04/17 07:00 INR, PTT INR 1.64 (0.82-1.09) H 10/03/17 02:00 Problem List - Problems (1) Acute on chronic respiratory failure with hypoxemia Code(s): J96.21 - ACUTE AND CHRONIC RESPIRATORY FAILURE WITH HYPOXIA (2) Colonization with multidrug-resistant bacteria Code(s): Z22.322 - CARRIER OR SUSPECTED CARRIER OF METHICILLIN RESIS STAPH (3) H/O aortic valve replacement Code(s): Z95.2 - PRESENCE OF PROSTHETIC HEART VALVE (4) Lung cancer Code(s): C34.90 - MALIGNANT NEOPLASM OF UNSP PART OF UNSP BRONCHUS OR LUNG Qualifiers: Laterality: left Lung location: upper lobe of lung Qualified Code(s): C34.12 - Malignant neoplasm of upper lobe, left bronchus or lung; C34.12 - Malignant neoplasm of upper lobe, left bronchus or lung; C34.12 - Malignant neoplasm of upper lobe, left bronchus or lung; C34.12 - Malignant neoplasm of upper lobe, left bronchus or lung (5) UTI (urinary tract infection) Code(s): N39.0 - URINARY TRACT INFECTION, SITE NOT SPECIFIED Qualifiers: Urinary tract infection type: site unspecified Hematuria presence: without hematuria Qualified Code(s): N39.0 - Urinary tract infection, site not specified; N39.0 - Urinary tract infection, site not specified; R31.9 - Hematuria, unspecified; R31.9 - Hematuria, unspecified Assessment/Plan PLAN iv antibiotics blood cultures- negative likely urine is colonizer iv fluids OOB PT eval dc momin continue with meds
[2017-10-05] MEDS: QUEtiapine FUMARATE 100 MG TABLET (FP) PO SCH (21:15)
[2017-10-05] MEDS: MONTELUKAST NA 10 MG TABLET PO SCH (21:15)
--- NOTE | 2017-10-06 08:48 | PN ---
Progress Note (short form) - Note Progress Note: patient seen and examined today Chart reviewed Comfortable Afebrile Vital Signs Temp 98.2 F 10/05/17 23:52 Pulse 97 H 10/05/17 23:52 Resp 20 10/05/17 23:52 BP 147/75 10/05/17 23:52 Pulse Ox 98 10/05/17 21:00 Intake & Output 10/05/17 10/05/17 10/06/17 11:59 23:59 11:59 Intake Total 50 Output Total 375 Balance -325 Intake: IVPB 50 Output: Urine 375 Pruett 375 Other: Voiding Method Toilet # Unmeasured Voids Void 1 1 Bowel Movement Yes # Bowel Movements 1 Active Medications Acetaminophen (Tylenol -) 650 mg PO Q6H PRN PRN Reason: FEVER OR PAIN Albuterol Sulfate (Ventolin 0.083% Nebulizer Soln -) 1 amp NEB TID PRN PRN Reason: SHORTNESS OF BREATH Last Admin: 10/04/17 21:30 Dose: 1 amp Apixaban (Eliquis -) 2.5 mg PO BID [facility] Last Admin: 10/05/17 21:15 Dose: 2.5 mg Carvedilol (Coreg -) 12.5 mg PO DAILY [facility] Last Admin: 10/05/17 09:28 Dose: 12.5 mg Collagenase (Santyl -) 1 applic TP DAILY [facility] Last Admin: 10/05/17 09:30 Dose: 1 applic Furosemide (Lasix Injection -) 40 mg IVPUSH DAILY [facility] Last Admin: 10/05/17 09:28 Dose: 40 mg Guaifenesin (Robitussin -) 10 ml PO Q4H PRN PRN Reason: COUGH Montelukast Sodium (Singulair -) 10 mg PO HS [facility] Last Admin: 10/05/17 21:15 Dose: 10 mg Nitrofurantoin Macrocrystals (Macrodantin -) 50 mg PO Q6HPO [facility] Pantoprazole Sodium (Protonix -) 40 mg PO DAILY [facility] Last Admin: 10/05/17 09:28 Dose: 40 mg Polyethylene Glycol (Miralax (For Daily Use) -) 17 gm PO DAILY [facility] Last Admin: 10/05/17 09:29 Dose: 17 gm Potassium Chloride (K-Dur -) 20 meq PO DAILY [facility] Last Admin: 10/05/17 09:28 Dose: 20 meq Quetiapine Fumarate (Seroquel -) 100 mg PO HS [facility] Last Admin: 10/05/17 21:15 Dose: 100 mg Senna (Senna -) 2 tab PO HS PRN PRN Reason: CONSTIPATION CBC, BMP 10/04/17 07:00 10/04/17 07:00 Todays - labs/ cxr - ordered Microbiology 10/04/17 14:45 Blood Culture - Preliminary Blood - Peripheral Venous NO GROWTH OBTAINED AFTER 24 HOURS, INCUBATION TO CONTINUE FOR 4 DAYS. 10/04/17 14:40 Blood Culture - Preliminary Blood - Peripheral Venous NO GROWTH OBTAINED AFTER 24 HOURS, INCUBATION TO CONTINUE FOR 4 DAYS. 10/03/17 05:50 Urine Culture - Final Urine - Urine Clean Catch Escherichia Coli [employer] Operator Physical Examination Constitutional: Yes: No Distress/ comfortable. Eyes: Yes: Conjunctiva Clear Neck: Yes: Supple. no jvd Cardiovascular: Yes: Pulse Irregular. No: Regular Rate and Rhythm Respiratory: Yes: Diminished (at bases) Gastrointestinal: Yes: Soft/ non tender Edema: LLE: Trace, RLE: Trace Neurological: Yes: Alert/ awake Assessment/Plan clinically much better Labs for today chest x-ray also ordered Change Lasix to by mouth Anticipated discharge later today Discussed with binder caser and also--- she was at home hospice before. We will follow. Problem List - Problems (1) Acute on chronic respiratory failure with hypoxemia Code(s): J96.21 - ACUTE AND CHRONIC RESPIRATORY FAILURE WITH HYPOXIA (2) Colonization with multidrug-resistant bacteria Code(s): Z22.322 - CARRIER OR SUSPECTED CARRIER OF METHICILLIN RESIS STAPH (3) H/O aortic valve replacement Code(s): Z95.2 - PRESENCE OF PROSTHETIC HEART VALVE (4) UTI (urinary tract infection) Code(s): N39.0 - URINARY TRACT INFECTION, SITE NOT SPECIFIED Qualifiers: Urinary tract infection type: site unspecified Hematuria presence: without hematuria Qualified Code(s): N39.0 - Urinary tract infection, site not specified; N39.0 - Urinary tract infection, site not specified; R31.9 - Hematuria, unspecified; R31.9 - Hematuria, unspecified (5) Atrial fibrillation Code(s): I48.91 - UNSPECIFIED ATRIAL FIBRILLATION Qualifiers: Atrial fibrillation type: chronic Qualified Code(s): I48.2 - Chronic atrial fibrillation; I48.2 - Chronic atrial fibrillation; I48.2 - Chronic atrial fibrillation; I48.2 - Chronic atrial fibrillation (6) Dementia Code(s): F03.90 - UNSPECIFIED DEMENTIA WITHOUT BEHAVIORAL DISTURBANCE Qualifiers: Dementia type: unspecified type Dementia behavioral disturbance: without behavioral disturbance Qualified Code(s): F03.90 - Unspecified dementia without behavioral disturbance; F03.90 - Unspecified dementia without behavioral disturbance; F03.90 - Unspecified dementia without behavioral disturbance (7) Lung cancer Code(s): C34.90 - MALIGNANT NEOPLASM OF UNSP PART OF UNSP BRONCHUS OR LUNG Qualifiers: Laterality: left Lung location: upper lobe of lung Qualified Code(s): C34.12 - Malignant neoplasm of upper lobe, left bronchus or lung; C34.12 - Malignant neoplasm of upper lobe, left bronchus or lung; C34.12 - Malignant neoplasm of upper lobe, left bronchus or lung; C34.12 - Malignant neoplasm of upper lobe, left bronchus or lung
[2017-10-06] MEDS: FUROSEMIDE 40 MG/4 ML INJECTABLE VIAL IVPUSH SCH ×2 (09:30→10:48)
[2017-10-06] MEDS: APIXABAN 2.5 MG TABLET PO SCH ×2 (09:30→22:03)
[2017-10-06] MEDS: CARVEDILOL 12.5 MG TABLET (FP) PO SCH (09:30)
[2017-10-06] MEDS: POTASSIUM CHLORIDE TABS 20 MEQ TABLET.ER (FP) PO SCH (09:30)
[2017-10-06] MEDS: PANTOPRAZOLE 40 MG TABLET (FP) PO SCH (09:30)
[2017-10-06] MEDS: POLYETHYLENE GLYCOL 3350 119 GM BTL PO SCH (09:52)
[2017-10-06] MEDS: COLLAGENASE CLOSTRIDIUM HIST. 30 GRAMS TUBE TP SCH (09:54)
[2017-10-06 10:40] LABS: BASOPHIL 0.7 % (0-2.0); EOSINOPHIL 4.5 % (0-4.5); MCH 30.5 pg (25.7-33.7); MCHC 33.2 g/dl (32.0-36.0); MEAN CELL VOLUME 91.8 fl (80-96); MEAN PLT VOLUME 8.8 fl (7.5-11.1); NEUTROPHILS 61.5 % (42.8-82.8); PLATELET COUNT 147 K/MM3 (134-434); RDW 16.1 % (11.6-15.6); WHITE BLOOD COUNT 7.9 K/mm3 (4.0-10.0)
[2017-10-06 11:06] LABS: ALBUMIN 2.7 g/dl (3.4-5.0); ANION GAP 12 (8-16); CALCIUM 8.6 mg/dL (8.5-10.1); CO2 27 mmol/L (21-32); GLUCOSE,RANDOM 192 mg/dL (74-106); SGOT/AST 15 U/L (15-37); SGPT/ALT 17 U/L (12-78)
[2017-10-06 11:10] LABS: ALK PHOS 87 U/L (45-117); BILIRUBIN,TOTAL 0.5 mg/dL (0.2-1.0); CREATININE 1.1 mg/dL (0.55-1.02); TOT PROT 6.8 g/dl (6.4-8.2)
[2017-10-06] MEDS: NITROFURANTOIN MACROCRYSTAL 50 MG CAPSULE (FP) PO SCH ×2 (11:33→17:27)
[2017-10-06] MEDS: FUROSEMIDE 40 MG TABLET (FP) PO SCH (11:33)
[2017-10-06 11:41] LABS: URINE RBC 14; URINE WBC 65
--- NOTE | 2017-10-06 12:55 | DS ---
Physical Examination Vital Signs: Vital Signs Temperature 98.2 F 10/05/17 23:52 Pulse Rate 97 H 10/05/17 23:52 Respiratory Rate 20 10/05/17 23:52 Blood Pressure 147/75 10/05/17 23:52 O2 Sat by Pulse Oximetry (%) 98 10/05/17 21:00 Findings/Remarks: see today progress note. 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 Family admits the patient has felt warm at home, and reports the last measured TMax was 99F yesterday during the day. Family notes patient has had decreased appetite. As per daughter, patient has had foul smelling urine. Patient denies any associated dysuria, hematuria, frequency, or urgency. She denies any abdominal pain, nausea, vomiting, diarrhea, or constipation. Patients family reports they have been compliant in administering the patients medication. patient found to be in volume overload Treated with IV Lasix Also treated with antibiotics for UTI With treatment patient got better Urine culture showed ESBL--- resistant to Levaquin Possible colonization but patient also had fever Will discharge on nitrofurantoin Patient now much better Stable for discharge--- home hospice Medications reconciled Discussed with nursing staff/shoe parts caser Reviewed the recent labs and chest x-ray also. Condition: Improved - Instructions Referrals: Binh Garcia MD [Primary Care Provider] - Disposition: HOME - Home Medications Comprehensive Discharge Medication List: Ambulatory Orders Alectinib HCl [Alecensa] 150 mg PO Q48H 03/26/17 Apixaban [Eliquis -] 2.5 mg PO BID 03/26/17 Carvedilol [Coreg -] 12.5 mg PO DAILY 03/26/17 Furosemide [Lasix -] 40 mg PO DAILY 03/26/17 Montelukast Na [Singulair -] 10 mg PO HS 03/26/17 Potassium Chloride [K-Tab ER] 20 meq PO DAILY 03/26/17 Quetiapine Fumarate [Seroquel] 100 mg PO HS 03/26/17 Collagenase Clostridium Hist. [Santyl -] 1 applic TP DAILY #90 applic 07/14/17 Albuterol 0.083% Nebulizer Gabrielle [Ventolin 0.083% Nebulizer Soln -] 1 amp NEB TID PRN 08/08/17 Alectinib HCl [Alecensa] 300 mg PO Q48H 08/08/17 Acetaminophen [Tylenol .Regular Strength -] 650 mg PO Q6H PRN #0 tablet Guaifenesin [Robitussin -] 10 ml PO Q4H PRN #1 ml 08/16/17 Pantoprazole Sodium [Protonix -] 40 mg PO DAILY #30 tab MDD 1 08/16/17 Polyethylene Glycol 3350 [Miralax 119 gm Btl -] 17 gm PO DAILY bottle 08/16/17 Sennosides [Senna -] 2 tab PO HS PRN #60 tablet MDD 2 08/16/17 Nitrofurantoin Macrocrystal [Macrodantin -] 50 mg PO Q6HPO #24 tab MDD 4
[2017-10-06] MEDS: QUEtiapine FUMARATE 100 MG TABLET (FP) PO SCH (22:03)
[2017-10-06] MEDS: MONTELUKAST NA 10 MG TABLET PO SCH (22:04)
[2017-10-07] MEDS: NITROFURANTOIN MACROCRYSTAL 50 MG CAPSULE (FP) PO SCH ×2 (05:57)
[2017-10-07] MEDS: POLYETHYLENE GLYCOL 3350 119 GM BTL PO SCH (09:21)
[2017-10-07] MEDS: APIXABAN 2.5 MG TABLET PO SCH (09:21)
[2017-10-07] MEDS: PANTOPRAZOLE 40 MG TABLET (FP) PO SCH (09:21)
[2017-10-07] MEDS: FUROSEMIDE 40 MG TABLET (FP) PO SCH (09:22)
[2017-10-07] MEDS: CARVEDILOL 12.5 MG TABLET (FP) PO SCH (09:22)
[2017-10-07] MEDS: POTASSIUM CHLORIDE TABS 20 MEQ TABLET.ER (FP) PO SCH (09:22)
[2017-10-07] MEDS: COLLAGENASE CLOSTRIDIUM HIST. 30 GRAMS TUBE TP SCH (10:14)
[2017-10-07 11:11] VITALS: BP 136/74; PULSE 86; TEMP 98
--- NOTE | 2017-10-07 11:45 | PN ---
Problem List - Problems (1) Acute on chronic respiratory failure with hypoxemia Code(s): J96.21 - ACUTE AND CHRONIC RESPIRATORY FAILURE WITH HYPOXIA (2) Colonization with multidrug-resistant bacteria Code(s): Z22.322 - CARRIER OR SUSPECTED CARRIER OF METHICILLIN RESIS STAPH (3) H/O aortic valve replacement Code(s): Z95.2 - PRESENCE OF PROSTHETIC HEART VALVE (4) Lung cancer Code(s): C34.90 - MALIGNANT NEOPLASM OF UNSP PART OF UNSP BRONCHUS OR LUNG Qualifiers: Laterality: left Lung location: upper lobe of lung Qualified Code(s): C34.12 - Malignant neoplasm of upper lobe, left bronchus or lung; C34.12 - Malignant neoplasm of upper lobe, left bronchus or lung; C34.12 - Malignant neoplasm of upper lobe, left bronchus or lung; C34.12 - Malignant neoplasm of upper lobe, left bronchus or lung (5) UTI (urinary tract infection) Code(s): N39.0 - URINARY TRACT INFECTION, SITE NOT SPECIFIED Qualifiers: Urinary tract infection type: site unspecified Hematuria presence: without hematuria Qualified Code(s): N39.0 - Urinary tract infection, site not specified; N39.0 - Urinary tract infection, site not specified; R31.9 - Hematuria, unspecified; R31.9 - Hematuria, unspecified
== END 2017-10-07 11:28 | disposition home or self-care (01) | DRG 871 ==
LOC: JER 01:23 → JERBED 06:23 → UNDOADMIN 06:30 → JERBED 06:30 → J8W 17:20
PROVIDERS: ADMIT Internal Medicine; ATTEND Internal Medicine
PROC: 3E0F7GC Introduction of Other Therapeutic Substance into Respiratory Tract, Via Natural or Artificial Opening (ICD-10-PCS; principal; 2017-10-05)
DX: A41.9 Sepsis, unspecified organism (principal); J96.21 Acute and chronic respiratory failure with hypoxia; N39.0 Urinary tract infection, site not specified; C34.90 Malignant neoplasm of unspecified part of unspecified bronchus or lung; B96.29 Other Escherichia coli [E. coli] as the cause of diseases classified elsewhere; J44.9 Chronic obstructive pulmonary disease, unspecified; E78.00 Pure hypercholesterolemia, unspecified; G30.9 Alzheimer's disease, unspecified; F02.80 Dementia in other diseases classified elsewhere, unspecified severity, without behavioral disturbance, psychotic disturbance, mood disturbance, and anxiety; I35.0 Nonrheumatic aortic (valve) stenosis; I48.91 Unspecified atrial fibrillation; Z88.1 Allergy status to other antibiotic agents; Z99.81 Dependence on supplemental oxygen; Z95.2 Presence of prosthetic heart valve; Z95.1 Presence of aortocoronary bypass graft; Z22.322 Carrier or suspected carrier of Methicillin resistant Staphylococcus aureus
CPT/HCPCS: 36415; 71010-TC; 80053; 81003; 81015; 82550; 83605; 83735; 83880; 84484; 85025; 85610; 87040; 87086; 87186; 93005; 93010; 94640; 97116-GP; 97161-GP; 99283-25

== ENCOUNTER 2017-10-30 08:25 | Emergency (ER) | payer OTHER ==
--- NOTE | 2017-10-30 08:58 | PDOC ---
Attending Attestation - Resident Resident Name: Nima Taylor - HPI HPI: 10/31/17 13:45 Pt presents to the ED after brought in by her daughters for increased discomfort at home. Daughters report that she is on hospice care at home but that they brought her in today because she appeared uncomfortable and her home medications were not helping. The daughters reaffirmed to me that - Physicial Exam PE: 10/31/17 14:31 Agree with resident's exam. Patient is alert and oriented, with non tender abdomen. - Medical Decision Making 10/31/17 14:32 Pt presents to the ED complaining of increased discomfort at home. Family wants to continue hospice care. Initial temperature was febrile, so work up for infection was done, and was negative. Will discharge home with home hospice.
--- NOTE | 2017-10-30 09:16 | PDOC ---
History of Present Illness - General Chief Complaint: Shortness of Breath Stated Complaint: SOB Time Seen by Provider: 10/30/17 08:55 - History of Present Illness Initial Comments: 10/30/17 09:15 86 yo F with dementia, COPD, HTN, A-fib, AVR, and stage IV lung ca. on hospice who presents with SOB. Daughter at bedside reports that the patient developed SOB yesterday evening while at her other daughters apartment. Normal home 02 requirement is 3 L and was increased to 4 L. Also endorses yellow sputum productive cough beginning yesterday, and increased visual hallucinations. Denies N/V, fevers/chills, chest pain, lightheadedness, abdominal complaints, urinary complaints. PCP Dr. Adrien Nam. Home nursing 3 times/week. Past History - Past Medical History Allergies/Adverse Reactions: Allergies Allergy/AdvReac Type Severity Reaction Status Date / Time bacitracin Allergy Rash Verified 10/30/17 14:38 Penicillins Allergy Verified 10/30/17 14:38 TAPE Allergy Uncoded 10/30/17 14:38 Home Medications: Ambulatory Orders Alectinib HCl [Alecensa] 150 mg PO Q48H 03/26/17 Apixaban [Eliquis -] 2.5 mg PO BID 03/26/17 Carvedilol [Coreg -] 12.5 mg PO DAILY 03/26/17 Furosemide [Lasix -] 40 mg PO DAILY 03/26/17 Montelukast Na [Singulair -] 10 mg PO HS 03/26/17 Potassium Chloride [K-Tab ER] 20 meq PO DAILY 03/26/17 Quetiapine Fumarate [Seroquel] 100 mg PO HS 03/26/17 Collagenase Clostridium Hist. [Santyl -] 1 applic TP DAILY #90 applic 07/14/17 Albuterol 0.083% Nebulizer Gabrielle [Ventolin 0.083% Nebulizer Soln -] 1 amp NEB TID PRN 08/08/17 Alectinib HCl [Alecensa] 300 mg PO Q48H 08/08/17 Acetaminophen [Tylenol .Regular Strength -] 650 mg PO Q6H PRN #0 tablet Guaifenesin [Robitussin -] 10 ml PO Q4H PRN #1 ml 08/16/17 Pantoprazole Sodium [Protonix -] 40 mg PO DAILY #30 tab MDD 1 08/16/17 Polyethylene Glycol 3350 [Miralax 119 gm Btl -] 17 gm PO DAILY bottle 08/16/17 Sennosides [Senna -] 2 tab PO HS PRN #60 tablet MDD 2 08/16/17 Nitrofurantoin Macrocrystal [Macrodantin -] 50 mg PO Q6HPO #24 tab MDD 4 Anemia: No Asthma: No Cancer: Yes (STAGE 2 LUNG CA) Cardiac Disorders: Yes (OPEN HEART SURGERY VALVE REPLACEMENT 1989 [facility]) CVA: No COPD: Yes (EMPHYSEMA) CHF: No Dementia: Yes Diabetes: No GI Disorders: No Disorders: No HTN: No Hypercholesterolemia: Yes Liver Disease: No Seizures: No Thyroid Disease: No - Surgical History Cardiac Surgery: Yes (HEART VALVE REPLACEMENT) - Immunization History Immunization Up to Date: No - Suicide/Smoking/Psychosocial Hx Smoking History: Never smoked Have you smoked in the past 12 months: No Hx Alcohol Use: No Drug/Substance Use Hx: No Substance Use Type: None Hx Substance Use Treatment: No Review of Systems - Review of Systems Comments:: 10/30/17 09:16 GENERAL/CONSTITUTIONAL: No fever or chills. No weakness. HEAD, EYES, EARS, NOSE AND THROAT: No change in vision. No ear pain or discharge. No sore throat.- CARDIOVASCULAR: No chest pain . RESPIRATORY: + SOB, cough,and wheezing. No hemoptysis. GASTROINTESTINAL: No nausea, vomiting, diarrhea or constipation. GENITOURINARY: No dysuria, frequency, or change in urination. MUSCULOSKELETAL: No joint or muscle swelling or pain. No neck or back pain. SKIN: No rash NEUROLOGIC: + Visual Hallucinations. No headache, vertigo, loss of consciousness , or change in strength/sensation. ENDOCRINE: No increased thirst. No abnormal weight change HEMATOLOGIC/LYMPHATIC: No anemia, easy bleeding, or history of blood clots. ALLERGIC/IMMUNOLOGIC: No hives or skin allergy. *Physical Exam - Physical Exam Comments: 10/30/17 09:16 GENERAL: Awake, alert, in no acute distress HEAD: No signs of trauma, normocephalic, atraumatic EYES: PERRLA, EOMI, sclera anicteric, conjunctiva clear ENT: Auricles normal inspection, hearing grossly normal, nares patent, oropharynx clear without exudates. Moist mucosa NECK: Normal ROM, supple, no lymphadenopathy, JVD, or masses LUNGS: BL diffuse insp/exp wheezing. No distress, speaks full sentences, clear to auscultation bilaterally HEART: Regular rate and rhythm, normal S1 and S2, no murmurs, rubs or gallops, peripheral pulses normal and equal bilaterally. EXTREMITIES : Normal inspection, Normal range of motion, no edema. No clubbing or cyanosis. SKIN: Warm, Dry, normal turgor, no rashes or lesions noted. ED Treatment Course - LABORATORY CBC & Chemistry Diagram: 10/30/17 10:50 10/30/17 10:50 Medical Decision Making - Medical Decision Making 10/30/17 10:05 86 yo F with dementia, COPD, HTN, A-fib, AVR, and stage IV lung ca. on hospice who presents with SOB beginning yesterday evening. Home O2 requirement increased from 3 L to 4 L. Also endorses yellow sputum productive cough beginning yesterday, and increased visual hallucinations. Denies N/V, fevers/ chills, chest pain, lightheadedness, abdominal complaints, urinary complaints. Physical exam with diffuse exp rhonci. Rectal temp of 101 and 99 % on 3 L NC. Patient presentation likely COPD One daughter wants her home, other daughter concerned about home hospice and wanting inpatient hospice. Febrile with rectal temp of 101, low suspicion of sepsis. Daughters aware she is on hospice but continue to be anxious with her deteriorating. ED Course: CBC: Unremarkable 10/30/17 11:42 CMP: Unremarkable 10/30/17 11:45 UA: 2 + Blood, negative nitrite. 10/30/17 13:02 CXR: no acute changes. Persistent BL Pleural effusions. No pneumothorax. 10/30/17 13:55 Patient stable and ready for discharge. 10/30/17 15:33 Spoke to chilango: Radha [phone] home hospice and discussed patient discharge back to home. *DC/Admit/Observation/Transfer Diagnosis at time of Disposition: Shortness of breath - Discharge Dispostion Disposition: HOME Condition at time of disposition: Stable Admit: No - Referrals Referrals: Binh Garcia MD [Primary Care Provider] - - Patient Instructions Printed Discharge Instructions: DI for Shortness of Breath Additional Instructions: Please return to the emergency department with any new or worsening symptoms or concerns. - Post Discharge Activity - Attestations Physician Attestion: 10/30/17 13:55 I attest to the documentation provided in this note.
[2017-10-30 10:55] LABS: BASOPHIL 0.7 % (0-2.0); EOSINOPHIL 0.7 % (0-4.5); MCHC 32.3 g/dl (32.0-36.0); MEAN CELL VOLUME 92.9 fl (80-96); MEAN PLT VOLUME 8.8 fl (7.5-11.1); NEUTROPHILS 69.5 % (42.8-82.8); PLATELET COUNT 131 K/MM3 (134-434); RDW 16.6 % (11.6-15.6); WHITE BLOOD COUNT 9.9 K/mm3 (4.0-10.0)
[2017-10-30 11:23] LABS: ALBUMIN 3.3 g/dl (3.4-5.0); ANION GAP 4 (8-16); BILIRUBIN,TOTAL 0.7 mg/dL (0.2-1.0); CALCIUM 8.9 mg/dL (8.5-10.1); CO2 34 mmol/L (21-32); CREATININE 0.8 mg/dL (0.55-1.02); GLUCOSE,RANDOM 154 mg/dL (74-106); SGOT/AST 20 U/L (15-37); SGPT/ALT 20 U/L (12-78); TOT PROT 7.8 g/dl (6.4-8.2)
[2017-10-30 11:24] LABS: ALK PHOS 94 U/L (45-117)
[2017-10-30 11:34] LABS: URINE APPEARANCE CLOUDY; URINE BILIRUBIN NEGATIVE (NEGATIVE); URINE BLOOD 2+ (NEGATIVE); URINE COLOR YELLOW; URINE GLUCOSE (UA) NEGATIVE (NEGATIVE); URINE KETONE NEGATIVE (NEGATIVE); URINE NITRITE NEGATIVE (NEGATIVE); URINE UROBILINOGEN NEGATIVE mg/dL (0.2-1.0)
[2017-10-30 11:46] LABS: URINE PROTEIN 2+ (NEGATIVE)
[2017-10-30 12:58] LABS: URINE BACTERIA MODERATE /hpf (NONE SEEN); URINE RBC 5 /hpf (0-3); URINE WBC 101 /hpf (3-5)
[2017-10-30] MEDS ORDERED: ONDANSETRON *ODT* 4 MG TABLET ONE (15:06)
[2017-10-30] MEDS ORDERED: ONDANSETRON 4 MG TABLET PO ONE (15:06)
[2017-10-30 15:14] VITALS: BP 145/68; PULSE 103; TEMP 101; BMI 38.9
[2017-10-30 17:33] LABS: URINE LEUK ESTERASE 2+ (NEGATIVE)
== END 2017-10-30 20:19 | disposition home or self-care (01) ==
LOC: JER 08:25
DX: R06.02 Shortness of breath (principal); Z85.118 Personal history of other malignant neoplasm of bronchus and lung; I48.91 Unspecified atrial fibrillation; J44.9 Chronic obstructive pulmonary disease, unspecified; I10 Essential (primary) hypertension
CPT/HCPCS: 36415; 71010-TC; 80053; 81003; 81015; 85025; 99283-25